=== PATIENT | male | born 1970 | race Two or more races ===

== ENCOUNTER 2020-11-21 16:29 | Inpatient (IN) | payer OTHER ==
[2020-11-21] MEDS ORDERED: SODIUM CHLORIDE 0.9% 1,000 ML IV STA ×2 (17:14→20:07)
[2020-11-21] MEDS ORDERED: HYDROmorphone 0.5 MG/0.5 ML SYRINGE IVP STA (17:14)
[2020-11-21 17:40] LABS: Basophils # (A) 0.1 k/uL (0-0.2); Basophils % (A) 1 %; Eosinophils # (A) 0.5 k/uL (0-0.7); Eosinophils % (A) 5 %; HCT 46.9 % (39.0-53.0); HGB 15.9 gm/dL (13.0-17.5); Lymphocytes # (A) 1.8 k/uL (1.0-4.8); Lymphocytes % (A) 18 %; MCH 33.6 pg (25.0-35.0); MCHC 33.9 g/dL (31.0-37.0); MCV 99.1 fL (80.0-100.0); Mean Platelet Volume 7.2; Monocytes # (A) 0.6 k/uL (0-1.0); Monocytes % (A) 6 %; Neutrophils # (A) 7.2 k/uL (1.3-7.7); Neutrophils % (A) 69 %; Platelet Count 257 k/uL (150-450); RBC 4.74 m/uL (4.30-5.90); RDW 11.9 % (11.5-15.5); WBC 10.4 k/uL (3.8-10.6)
[2020-11-21 17:53] LABS: ALT 64 U/L (4-49); AST 67 U/L (17-59); African American GFR (CKD) >90 (>60 ml/min/1.73 sqM); Albumin 3.9 g/dL (3.5-5.0); Alkaline Phosphatase 92 U/L (38-126); Amylase 30 U/L (30-110); Anion Gap 8 mmol/L; Blood Urea Nitrogen 19 mg/dL (9-20); Calcium 9.2 mg/dL (8.4-10.2); Carbon Dioxide 26 mmol/L (22-30); Chloride 102 mmol/L (98-107); Glucose 109 mg/dL (74-99); Lipase 35 U/L (23-300); Non-African American GFR(CKD) >90 (>60 ml/min/1.73 sqM); Potassium 4.2 mmol/L (3.5-5.1); Sodium 136 mmol/L (137-145); Total Bilirubin 0.8 mg/dL (0.2-1.3); Total Protein 7.5 g/dL (6.3-8.2)
--- NOTE | 2020-11-21 18:12 | CT ---
EXAMINATION TYPE: CT abdomen pelvis w con DATE OF EXAM: 11/21/2020 COMPARISON: None HISTORY: periumbilical pain CT DLP: 1139.1 mGycm Automated exposure control for dose reduction was used. CONTRAST: Performed with IV Contrast, patient injected with 100 mL of Isovue 370. Images obtained from the diaphragm to the floor the pelvis with IV contrast. Lung bases are clear of consolidation. There is minimal subsegmental atelectasis at the lung bases. H eart size is normal. There is no pericardial effusion. There are small calcified splenic granulomata. Stomach pancreas liver gallbladder appear intact. The bile ducts are not dilated. There is no adrenal mass. Kidneys show satisfactory contrast opacification. There is no hydronephrosi s. There is 3 cm right renal parapelvic cyst. Delayed images show normal renal excretion. There is no retroperitoneal adenopathy. Ureters are not dilated. There is fat stranding in the pelvis with wall thickening of the mid sigmoid colon. There are multipl e sigmoid diverticula. There is extraluminal air anterior to the mid sigmoid colon and above the urin diann bladder. Bladder distends fairly smoothly. There is no inguinal hernia. The appendix appears normal. There is 3.8 x 3 cm fluid collection in the posterior midline pelvis consistent with an abscess. There is pros tatic calcification. Lumbar vertebra have normal alignment. There is no compression fracture. Posterior elements are intac t. There is vacuum disc at L5-S1. Bony pelvis is intact. Hip joints are intact. IMPRESSION: Sigmoid diverticulitis with extraluminal air measuring overall 8 cm in length consistent with perfora tion that is collected anterior to the mid sigmoid colon. Small posterior fluid collection consistent with an abscess. No bowel obstruction.
[2020-11-21] MEDS ORDERED: PIPERACILLIN-TAZOBACTAM 3.375 GM in SODIUM CHLORIDE 0.9% 100 ML IVPB STA (18:23)
--- NOTE | 2020-11-21 18:58 | ED ---
General Adult HPI - General Source: patient, RN notes reviewed Mode of arrival: ambulatory Limitations: no limitations <Moses Jo - Last Filed: 11/21/20 18:55> <Sahil Thompson - Last Filed: 11/21/20 20:07> - General Chief complaint: Abdominal Pain Stated complaint: Constipation Time Seen by Provider: 11/21/20 16:48 - History of Present Illness Initial comments: 50-year-old male presents to the emergency room for a chief, and of abdominal pain. Patient states he believes he is constipated. Patient states that 5 days ago he had a normal bowel movement. However the next day he started having abdominal pain and thought he was constipated. He tried an enema 4 days ago as well as drinking coffee. He did have several small bowel movements at that time. Patient states the pain is worsened and he is more bloated.States he is passing gas but has not had a bowel movement for the past few days. He denies fevers or chills. Admits to nausea but denies vomiting.Patient has no other complaints at this time including shortness of breath, chest pain, nausea or vomiting, headache, or visual changes. (Moses Jo) - Related Data Home Medications Medication Instructions Recorded Confirmed No Known Home Medications 11/21/20 11/21/20 Allergies Allergy/AdvReac Type Severity Reaction Status Date / Time No Known Allergies Allergy Verified 11/21/20 18:26 Review of Systems ROS Other: All systems not noted in ROS Statement are negative. <Moses Jo - Last Filed: 11/21/20 18:55> ROS Other: All systems not noted in ROS Statement are negative. <Sahil Thompson - Last Filed: 11/21/20 20:07> ROS Statement: Those systems with pertinent positive or pertinent negative responses have been documented in the HPI. Past Medical History Past Medical History: No Reported History History of Any Multi-Drug Resistant Organisms: None Reported Past Surgical History: No Surgical Hx Reported Smoking Status: Current every day smoker Past Alcohol Use History: Occasional Past Drug Use History: None Reported <Moses Jo - Last Filed: 11/21/20 18:55> General Exam Limitations: no limitations General appearance: alert, in no apparent distress Head exam: Present: atraumatic Eye exam: Present: normal appearance, PERRL, EOMI. Absent: scleral icterus, conjunctival injection, periorbital swelling ENT exam: Present: normal exam, mucous membranes moist Neck exam: Present: normal inspection, full ROM. Absent: tenderness, meningismus, lymphadenopathy Respiratory exam: Present: normal lung sounds bilaterally. Absent: respiratory distress, wheezes, rales, rhonchi, stridor Cardiovascular Exam: Present: regular rate, normal rhythm, normal heart sounds. Absent: systolic murmur, diastolic murmur, rubs, gallop, clicks GI/Abdominal exam: Present: soft, distended, tenderness (Generalized abdominal tenderness), normal bowel sounds. Absent: guarding, rebound, rigid Neurological exam: Present: alert <Moses Jo - Last Filed: 11/21/20 18:55> Course <Sahil Thompson - Last Filed: 11/21/20 20:07> Vital Signs 11/21/20 11/21/20 16:34 19:11 Temperature 98.3 F Pulse Rate 92 80 Respiratory 18 16 Rate Blood Pressure 172/131 169/111 O2 Sat by Pulse 97 95 Oximetry - Reevaluation(s) Reevaluation #1: 11/21/20 18:59 Patient reevaluated and reexamined by myself, Dr. Thompson. I agree with PA findings. This includes diagnostic interpretation and treatment plan. Patient does have moderate tenderness left lower quadrant. CT reviewed. Patient requests not Dr. Wheatley. Case was discussed with Dr. Hagan who does not accept care of the patient. 11/21/20 19:40 Unable to get a hold of Dr. Asher or Dr. Phan. Patient again updated. Patient still refusing Dr. Wheatley at this time. Patient recommended to consider transfer however still will not agree to that. Patient is considering leaving AGAINST MEDICAL ADVICE. Patient is strongly recommended against that multiple times. is present and will talk with patient. They did asked that I leave the room. Patient is aware that he has perforation and abscess and may need procedure or surgery, possibly still tonight and that his care is being delayed at this time. 11/21/20 20:06 Patient again reevaluated and is agreeable to consult Dr. Wheatley. Case was discussed in detail Dr. Wheatley who does not feel patient needs emergent surgery at this point. He does request IV Zosyn, 2 L normal saline, nothing by mouth and repeat labs at 6 AM. Also does request consult with Dr. Miranda for medicine. (Sahil Thompson) Medical Decision Making - Lab Data Result diagrams: 11/21/20 17:31 11/21/20 17:31 <Moses Jo - Last Filed: 11/21/20 18:55> - Lab Data Result diagrams: 11/21/20 17:31 11/21/20 17:31 <Sahil Thompson - Last Filed: 11/21/20 20:07> - Medical Decision Making Vitals are stable. Patient is afebrile. HPI and physical exam as documented. CBC CMP unremarkable. CT abdomen and pelvis shows sigmoid diverticulitis with extraluminal air measuring 8 cm in length consistent with perforation. There is also small posterior fluid collection with an abscess. Patient was started on Zosyn. Patient is requesting a different surgeon than the on-call surgeon. (Moses Jo) - Lab Data Lab Results 11/21/20 11/21/20 11/21/20 Range/Units 17:31 17:31 18:57 WBC 10.4 (3.8-10.6) k/uL RBC 4.74 (4.30-5.90) m/uL Hgb 15.9 (13.0-17.5) gm/dL Hct 46.9 (39.0-53.0) % MCV 99.1 (80.0-100.0) fL MCH 33.6 (25.0-35.0) pg MCHC 33.9 (31.0-37.0) g/dL RDW 11.9 (11.5-15.5) % Plt Count 257 (150-450) k/uL MPV 7.2 Neutrophils % 69 % Lymphocytes % 18 % Monocytes % 6 % Eosinophils % 5 % Basophils % 1 % Neutrophils # 7.2 (1.3-7.7) k/uL Lymphocytes # 1.8 (1.0-4.8) k/uL Monocytes # 0.6 (0-1.0) k/uL Eosinophils # 0.5 (0-0.7) k/uL Basophils # 0.1 (0-0.2) k/uL Sodium 136 L (137-145) mmol/L Potassium 4.2 (3.5-5.1) mmol/L Chloride 102 (98-107) mmol/L Carbon Dioxide 26 (22-30) mmol/L Anion Gap 8 mmol/L BUN 19 (9-20) mg/dL Creatinine 0.77 (0.66-1.25) mg/dL Est GFR (CKD-EPI)AfAm >90 (>60 ml/min/1.73 sqM) Est GFR (CKD-EPI)NonAf >90 (>60 ml/min/1.73 sqM) Glucose 109 H (74-99) mg/dL Plasma Lactic Acid Jordan 0.9 (0.7-2.0) mmol/L Calcium 9.2 (8.4-10.2) mg/dL Total Bilirubin 0.8 (0.2-1.3) mg/dL AST 67 H (17-59) U/L ALT 64 H (4-49) U/L Alkaline Phosphatase 92 (38-126) U/L Total Protein 7.5 (6.3-8.2) g/dL Albumin 3.9 (3.5-5.0) g/dL Amylase 30 (30-110) U/L Lipase 35 (23-300) U/L Critical Care Time Critical Care Time: Yes Total Critical Care Time: 31 <Sahil Thompson - Last Filed: 11/21/20 20:07> Disposition Is patient prescribed a controlled substance at d/c from ED?: No Time of Disposition: 18:58 <Moses Jo - Last Filed: 11/21/20 18:55> Is patient prescribed a controlled substance at d/c from ED?: No <Sahil Thompson - Last Filed: 11/21/20 20:07> Clinical Impression: Diverticulitis of intestine with perforation and abscess Disposition: ADMITTED IP TO THIS HOSP Condition: Serious Referrals: None,Stated [Primary Care Provider] - 1-2 days
[2020-11-21] MEDS ORDERED: NICOTINE 21MG/24HR PATCH TRANSDERM STA (20:04)
[2020-11-21] MEDS ORDERED: ONDANSETRON 4 MG/2 ML VIAL IVP PRN (20:08)
[2020-11-21] MEDS ORDERED: NICOTINE 14MG/24HR PATCH TRANSDERM STA (20:08)
[2020-11-21] MEDS ORDERED: HYDROmorphone 0.5 MG/0.5 ML SYRINGE IVP PRN (20:08)
[2020-11-21] MEDS ORDERED: NALOXONE 0.4 MG/ML 1 ML VIAL IV PRN (20:08)
[2020-11-21] MEDS: SODIUM CHLORIDE 0.9% 1,000 ML IV SCH (20:19)
[2020-11-21] MEDS: HYDROmorphone 1 MG/ML 1 ML SYRINGE IVP PRN ×2 (20:20→23:15)
[2020-11-21 20:26] LABS: Appearance,Urine Clear (Clear); Bilirubin,Urine Negative (Negative); Blood,Urine Small (Negative); Color,Urine Yellow; Glucose,Urine (UA) Negative (Negative); Ketones,Urine Negative (Negative); Leukocyte Esterase,Urine Negative (Negative); Mucus,Urine Few /hpf; Nitrite,Urine Negative (Negative); PH, Urine 6.5 (5.0-8.0); Protein,Urine Trace (Negative); RBC,Urine 8 /hpf (0-5); Urobilinogen,Urine <2.0 mg/dL (<2.0); WBC,Urine 3 /hpf (0-5)
[2020-11-21 20:27] LABS: Specific Gravity,Urine >1.050 (1.001-1.035)
[2020-11-21] MEDS: PANTOPRAZOLE 40 MG/10 ML VIAL IV SCH (20:53)
[2020-11-22] MEDS: HYDROmorphone 1 MG/ML 1 ML SYRINGE IVP PRN ×4 (02:08→12:26)
[2020-11-22] MEDS: PIPERACILLIN-TAZOBACTAM 3.375 GM in SODIUM CHLORIDE 0.9% 100 ML IVPB SCH ×3 (02:08→20:49)
[2020-11-22] MEDS: SODIUM CHLORIDE 0.9% 1,000 ML IV SCH ×3 (04:34→21:02)
[2020-11-22 06:59] LABS: Basophils # (A) 0.1 k/uL (0-0.2); Basophils % (A) 1 %; Eosinophils # (A) 0.2 k/uL (0-0.7); Eosinophils % (A) 3 %; HCT 43.2 % (39.0-53.0); HGB 14.2 gm/dL (13.0-17.5); Lymphocytes # (A) 1.4 k/uL (1.0-4.8); Lymphocytes % (A) 17 %; MCH 33.8 pg (25.0-35.0); MCHC 32.9 g/dL (31.0-37.0); MCV 102.5 fL (80.0-100.0); Mean Platelet Volume 7.4; Monocytes # (A) 0.5 k/uL (0-1.0); Monocytes % (A) 6 %; Neutrophils # (A) 5.8 k/uL (1.3-7.7); Neutrophils % (A) 72 %; Platelet Count 229 k/uL (150-450); RBC 4.21 m/uL (4.30-5.90); RDW 11.9 % (11.5-15.5); WBC 8.1 k/uL (3.8-10.6)
[2020-11-22] MEDS: PANTOPRAZOLE 40 MG/10 ML VIAL IV SCH (07:50)
--- NOTE | 2020-11-22 10:49 | P.GSHP ---
History of Present Illness H&P Date: 11/22/20 CHIEF COMPLAINT: Abdominal pain HISTORY OF PRESENT ILLNESS: This is a 50-year-old male with a known history of nicotine dependence. He presented to the emergency room with complaints of abdominal pain. Patient reports that he's been having abdominal pain for about 6 days. Symptoms started on . Patient thought that he was constipated. He took milk of mag and coffee. He reports that he was able to have a very small crumb-like bowel movement. He reports that his abdominal pain and distention continued to worsen. He had been passing gas and then no bowel movement for the past few days. He denies any nausea or vomiting. Denies any fever chills or sweats. He has had issues with constipation in the past. Denies any history of diverticulosis or diverticulitis. He has never had a colonoscopy. Computed tomography scan of the abdomen and pelvis shows sigmoid diverticulitis with extraluminal air measuring overall 8 cm in length consistent with perforation that was collected anterior to the mid sigmoid colon. Small posterior fluid collection consistent with an abscess. No bowel obstruction. Patient admitted to the hospital for diverticulitis with perforation. Patient has been started on IV antibiotics and IV fluids. PAST MEDICAL HISTORY: See list. PAST SURGICAL HISTORY: See list. MEDICATIONS: See list. ALLERGIES: See list. SOCIAL HISTORY: No illicit drug use. REVIEW OF SYSTEMS: CONSTITUTIONAL: Denies fever or chills. HEENT: Denies blurred vision, vision changes, or eye pain. Denies hemoptysis CARDIOVASCULAR: Denies chest pain or pressure. RESPIRATORY: No shortness of breath. GASTROINTESTINAL: See HPI for pertinent findings HEMATOLOGIC: Denies bleeding disorders. GENITOURINARY: Denies any blood in urine or increased urinary frequency. SKIN: Denies pruitis. Denies rash. PHYSICAL EXAM: VITAL SIGNS: Reviewed GENERAL: Well-developed in no acute distress. HEENT: No sclera icterus. Extraocular movements grossly intact. Moist buccal mucosa. Head is atraumatic, normocephalic. No nasal drainage. ABDOMEN: Distended with tenderness to palpation of the left lower quadrant and mid lower quadrant of the abdomen NEUROLOGIC: Alert and oriented. Cranial nerves II through XII grossly intact. LABORATORY DATA: WBC 8.1 hemoglobin 14.2 lactate 0.9 AST 54 ALT 60 IMAGING: Computed tomography scan of the abdomen and pelvis shows sigmoid diverticulitis with extraluminal air measuring overall 8 cm in length consistent with perforation that was collected anterior to the mid sigmoid colon. Small posterior fluid collection consistent with an abscess. No bowel obstruction. ASSESSMENT: 1. Sigmoid diverticulitis with perforation 2. Small posterior fluid collection consistent with an abscess noted on CT 3. Nicotine dependence PLAN: -Recommend conservative management -Consult interventional radiology for possible drainage of abscess -Continue IV Zosyn -Continue IV fluids -Continue IV Dilaudid as needed for pain -Consult medicine for medical management -Keep patient nothing by mouth -GI prophylaxis Protonix and DVT prophylaxis subcu heparin Physician [place] Whacker note has been reviewed by physician. Signing provider agrees with the documented findings, assessment, and plan of care. Past Medical History Past Medical History: No Reported History History of Any Multi-Drug Resistant Organisms: None Reported Past Surgical History: No Surgical Hx Reported Past Anesthesia/Blood Transfusion Reactions: No Reported Reaction Past Psychological History: Anxiety, Depression Smoking Status: Current every day smoker Past Alcohol Use History: Occasional Past Drug Use History: None Reported Medications and Allergies Home Medications Medication Instructions Recorded Confirmed Type No Known Home Medications 11/21/20 11/21/20 History Allergies Allergy/AdvReac Type Severity Reaction Status Date / Time No Known Allergies Allergy Verified 11/21/20 18:26 Surgical - Exam Vital Signs Temp Pulse Resp BP Pulse Ox 98.3 F 92 18 172/131 97 11/21/20 16:34 11/21/20 16:34 11/21/20 16:34 11/21/20 16:34 11/21/20 16:34 Results - Labs 11/22/20 06:33 11/21/20 17:31 Abnormal Lab Results - Last 24 Hours (Table) 11/21/20 11/21/20 11/22/20 Range/Units 17:31 17:31 06:33 RBC 4.21 L (4.30-5.90) m/uL MCV 102.5 H (80.0-100.0) fL Sodium 136 L (137-145) mmol/L Glucose 109 H (74-99) mg/dL AST 67 H (17-59) U/L ALT 64 H (4-49) U/L Ur Specific [place] >1.050 H (1.001-1.035) Urine Protein Trace H (Negative) Urine Blood Small H (Negative) Urine RBC 8 H (0-5) /hpf Urine Mucus Few H (None) /hpf Diabetes panel 11/21/20 Range/Units 17:31 Sodium 136 L (137-145) mmol/L Potassium 4.2 (3.5-5.1) mmol/L Chloride 102 (98-107) mmol/L Carbon Dioxide 26 (22-30) mmol/L BUN 19 (9-20) mg/dL Creatinine 0.77 (0.66-1.25) mg/dL Glucose 109 H (74-99) mg/dL Calcium 9.2 (8.4-10.2) mg/dL AST 67 H (17-59) U/L ALT 64 H (4-49) U/L Alkaline Phosphatase 92 (38-126) U/L Total Protein 7.5 (6.3-8.2) g/dL Albumin 3.9 (3.5-5.0) g/dL Calcium panel 11/21/20 Range/Units 17:31 Calcium 9.2 (8.4-10.2) mg/dL Albumin 3.9 (3.5-5.0) g/dL Pituitary panel 11/21/20 Range/Units 17:31 Sodium 136 L (137-145) mmol/L Potassium 4.2 (3.5-5.1) mmol/L Chloride 102 (98-107) mmol/L Carbon Dioxide 26 (22-30) mmol/L BUN 19 (9-20) mg/dL Creatinine 0.77 (0.66-1.25) mg/dL Glucose 109 H (74-99) mg/dL Calcium 9.2 (8.4-10.2) mg/dL Adrenal panel 11/21/20 Range/Units 17:31 Sodium 136 L (137-145) mmol/L Potassium 4.2 (3.5-5.1) mmol/L Chloride 102 (98-107) mmol/L Carbon Dioxide 26 (22-30) mmol/L BUN 19 (9-20) mg/dL Creatinine 0.77 (0.66-1.25) mg/dL Glucose 109 H (74-99) mg/dL Calcium 9.2 (8.4-10.2) mg/dL Total Bilirubin 0.8 (0.2-1.3) mg/dL AST 67 H (17-59) U/L ALT 64 H (4-49) U/L Alkaline Phosphatase 92 (38-126) U/L Total Protein 7.5 (6.3-8.2) g/dL Albumin 3.9 (3.5-5.0) g/dL
[2020-11-22 11:37] LABS: African American GFR (CKD) 119.9 (60.0-200.0); Albumin 3.6 g/dL (3.80-4.90); Albumin/Globulin Ratio 1.64 (1.60-3.17); Anion Gap 6.5 mmol/L (4.00-12.00); Calcium 8.3 mg/dL (8.7-10.3); Carbon Dioxide 26.5 mmol/L (21.6-31.8); Globulin 2.2 g/dL (1.6-3.3); Non-African American GFR(CKD) 103.4 (60.0-200.0); Potassium 4.5 mmol/L (3.5-5.5); Total Bilirubin 0.5 mg/dL (0.2-1.2); Total Protein 5.8 g/dL (6.2-8.2)
[2020-11-22] MEDS: HYDROcodone/APAP 5-325MG 1 EACH TAB PO PRN ×2 (13:11→20:46)
[2020-11-22] MEDS ORDERED: LORazepam 2 MG/ML INJ IM PRN (15:42)
--- NOTE | 2020-11-22 17:43 | P.GSCN ---
History of Present Illness Consult date: 11/22/20 Reason for Consult: diverticulitis History of present illness: The patient is a 50 year old man who started to have abdominal discomfort on . He felt bloating and generalized discomfort. He was having some issues with constipation, he had had a similar episode 1 year ago. He tried treating this with various things including enemas and prune juice with milk of magnesia. Eventually began having some bowel movements and initially felt better. Yesterday however he got worse and it hurt even walk. He came into the emergency room and was worked up and found to have diverticulitis. He denies any prior episodes of diverticulitis. No prior colonoscopies. He has passed some flatus today. He's feeling better today than admission last night. Denies any fevers although he has had some sweats. He thought the swelling was due to the pain. He did not take his temperature. Denied nausea or vomiting. No blood in the stools or dark tarry stools. Review of Systems All systems: negative Past Medical History Past Medical History: No Reported History History of Any Multi-Drug Resistant Organisms: None Reported Past Surgical History: No Surgical Hx Reported Past Anesthesia/Blood Transfusion Reactions: No Reported Reaction Past Psychological History: Anxiety, Depression Smoking Status: Current every day smoker Past Alcohol Use History: Occasional Past Drug Use History: None Reported Medications and Allergies Home Medications Medication Instructions Recorded Confirmed Type No Known Home Medications 11/21/20 11/21/20 History Allergies Allergy/AdvReac Type Severity Reaction Status Date / Time No Known Allergies Allergy Verified 11/21/20 18:26 Surgical - Exam Osteopathic Statement: *. No significant issues noted on an osteopathic structural exam other than those noted in the History and Physical/Consult. Vital Signs Temp Pulse Resp BP Pulse Ox 98.3 F 92 18 172/131 97 11/21/20 16:34 11/21/20 16:34 11/21/20 16:34 11/21/20 16:34 11/21/20 16:34 - General well developed, well nourished, no distress - Eyes normal ocular movement - Neck trachea midline - Respiratory normal respiratory effort, clear to auscultation - Cardiovascular Rhythm: regular - Abdomen Abdomen: soft, tender (Tenderness along the lower abdomen to palpation, no significant discomfort with), guarding (Mild voluntary guarding), no rebound Results - Labs 11/22/20 06:33 11/22/20 06:33 Abnormal Lab Results - Last 24 Hours (Table) 11/21/20 11/21/20 11/22/20 Range/Units 17:31 17:31 06:33 RBC 4.21 L (4.30-5.90) m/uL MCV 102.5 H (80.0-100.0) fL Sodium 136 L (137-145) mmol/L Glucose 109 H (74-99) mg/dL Calcium (8.7-10.3) mg/dL AST 67 H (17-59) U/L ALT 64 H (4-49) U/L Total Protein (6.2-8.2) g/dL Albumin (3.80-4.90) g/dL Ur Specific [place] >1.050 H (1.001-1.035) Urine Protein Trace H (Negative) Urine Blood Small H (Negative) Urine RBC 8 H (0-5) /hpf Urine Mucus Few H (None) /hpf 11/22/20 Range/Units 06:33 RBC (4.30-5.90) m/uL MCV (80.0-100.0) fL Sodium (137-145) mmol/L Glucose (74-99) mg/dL Calcium 8.3 L (8.7-10.3) mg/dL AST 54 H (17-59) U/L ALT 60 H (4-49) U/L Total Protein 5.8 L (6.2-8.2) g/dL Albumin 3.60 L (3.80-4.90) g/dL Ur Specific [place] (1.001-1.035) Urine Protein (Negative) Urine Blood (Negative) Urine RBC (0-5) /hpf Urine Mucus (None) /hpf Diabetes panel 11/21/20 11/22/20 Range/Units 17:31 06:33 Sodium 136 L 139 (137-145) mmol/L Potassium 4.2 4.5 (3.5-5.1) mmol/L Chloride 102 106 (98-107) mmol/L Carbon Dioxide 26 26.5 (22-30) mmol/L BUN 19 16.0 (9-20) mg/dL Creatinine 0.77 0.8 (0.66-1.25) mg/dL Glucose 109 H 91 (74-99) mg/dL Calcium 9.2 8.3 L (8.4-10.2) mg/dL AST 67 H 54 H (17-59) U/L ALT 64 H 60 H (4-49) U/L Alkaline Phosphatase 92 72 (38-126) U/L Total Protein 7.5 5.8 L (6.3-8.2) g/dL Albumin 3.9 3.60 L (3.5-5.0) g/dL Calcium panel 11/21/20 11/22/20 Range/Units 17:31 06:33 Calcium 9.2 8.3 L (8.4-10.2) mg/dL Albumin 3.9 3.60 L (3.5-5.0) g/dL Pituitary panel 11/21/20 11/22/20 Range/Units 17:31 06:33 Sodium 136 L 139 (137-145) mmol/L Potassium 4.2 4.5 (3.5-5.1) mmol/L Chloride 102 106 (98-107) mmol/L Carbon Dioxide 26 26.5 (22-30) mmol/L BUN 19 16.0 (9-20) mg/dL Creatinine 0.77 0.8 (0.66-1.25) mg/dL Glucose 109 H 91 (74-99) mg/dL Calcium 9.2 8.3 L (8.4-10.2) mg/dL Adrenal panel 11/21/20 11/22/20 Range/Units 17:31 06:33 Sodium 136 L 139 (137-145) mmol/L Potassium 4.2 4.5 (3.5-5.1) mmol/L Chloride 102 106 (98-107) mmol/L Carbon Dioxide 26 26.5 (22-30) mmol/L BUN 19 16.0 (9-20) mg/dL Creatinine 0.77 0.8 (0.66-1.25) mg/dL Glucose 109 H 91 (74-99) mg/dL Calcium 9.2 8.3 L (8.4-10.2) mg/dL Total Bilirubin 0.8 0.5 (0.2-1.3) mg/dL AST 67 H 54 H (17-59) U/L ALT 64 H 60 H (4-49) U/L Alkaline Phosphatase 92 72 (38-126) U/L Total Protein 7.5 5.8 L (6.3-8.2) g/dL Albumin 3.9 3.60 L (3.5-5.0) g/dL - Imaging CT scan - abdomen: report reviewed, image reviewed Assessment and Plan (1) Diverticulitis of intestine with perforation and abscess Current Visit: Yes Status: Acute Code(s): K57.80 - DVTRCLI OF INTEST, PART UNSP, W PERF AND ABSCESS W/O BLEED SNOMED Code(s): 529481351 Plan: I discussed diverticulitis with the patient. We discussed surgical versus medical options. Currently he has no lactic acidosis, fever or leukocytosis. W e'll give him a try at conservative he was broad-spectrum antibiotics. Do DVT and ulcer prophylaxis. Explained that he worsens or doesn't significantly improve in the next 2-3 days he may need laparotomy with temporary colostomy formation. Questions were encouraged and answered. I'll follow with you
--- NOTE | 2020-11-22 20:09 | CONS ---
CONSULTATION DATE OF SERVICE: 11/22/2020 REASON FOR CONSULTATION: Advice regarding acute diverticulitis and other medical issues, requested by Dr. Wheatley. HISTORY OF PRESENT ILLNESS: This 50-year-old gentleman with a past medical history of anxiety and depression, not being followed by any primary physician in the outpatient setting, is complaining of abdominal pain on and off for the past several days. The pain is currently situated in the lower part of the abdomen; it is severe in intensity. Patient is also constipated. The patient apparently had some enema 4 days ago and was started on coffee, and because of lack of improvement, the patient came to [facility] and was admitted for further evaluation. White count was 8.1. AST and ALT were slightly elevated. CT scan of the abdomen and pelvis was also done which showed evidence of sigmoid diverticulitis with extraluminal air measuring about 8 cm in length with perforation that has collected anterior to the mid sigmoid colon. Small posterior fluid collection was also noted. There is no history of any fever, rigor or chills. No history of headache, loss of consciousness, chest pain or palpitations at this time. PAST MEDICAL HISTORY: History of anxiety, depression, history of nicotine dependence. HOME MEDICATIONS: None. ALLERGIES: NONE. FAMILY HISTORY: No history of heart disease or strokes in the family. SOCIAL HISTORY: No history of smoking. Occasional alcohol intake. REVIEW OF SYSTEMS: ENT: No diminished hearing. No diminished vision. CARDIOVASCULAR SYSTEM: No angina, palpitations. RESPIRATORY SYSTEM: No cough, hemoptysis. GI: As mentioned earlier. : No dysuria or retention. NERVOUS SYSTEM: No numbness, weakness. ALLERGY/IMMUNOLOGY: No asthma, hayfever. MUSCULOSKELETAL: As mentioned earlier. HEMATOLOGY/ONCOLOGY: No history of anemia. ENDOCRINE: No history of diabetes, hypothyroidism. CONSTITUTIONAL: As mentioned earlier. DERMATOLOGY: Negative. RHEUMATOLOGY: Negative. PSYCHIATRY: As mentioned earlier. PHYSICAL EXAMINATION: Patient alert and oriented x3. Pulse is 85, blood pressure 174/97, respirations 15, temperature 98.2, pulse ox 97% on room air. HEENT: Conjunctivae normal. NECK: No jugular venous distention. CARDIOVASCULAR SYSTEM: S1, S2 muffled. RESPIRATORY SYSTEM: Breath sounds diminished at the bases. No rhonchi. No crackles. ABDOMEN: Soft. Mild diffuse distention. Mild diffuse tenderness present. No guarding. No rigidity. No mass palpable. Bowel sounds present. LEGS: No edema. No swelling. NERVOUS SYSTEM: Higher functions as mentioned earlier. Moves all 4 limbs. No focal motor or sensory deficit. LYMPHATICS: No lymph node palpable in neck, axillae or groin. SKIN: No ulcer, rash, bleeding. JOINTS: No active deforming arthropathy. LABS: WBC 8.1, hemoglobin 14.2, sodium 139. AST is 54 and ALT 60. ASSESSMENT: 1. Acute sigmoid diverticulitis with possible diverticular abscess, present on admission, with severe abdominal pain. 2. Increased AST and ALT; possibly mild hepatitis. 3. Hypertension. 4. Hyponatremia, mild. 5. Increased mean corpuscular volume. 6. History of anxiety, depression. 7. History of nicotine dependence. 8. FULL CODE. RECOMMENDATIONS AND DISCUSSION: In this 50-year-old gentleman who presented with multiple complex medical issues, we will monitor the patient closely. I would recommend continuing the current medications. Continue symptomatic treatment, broad-spectrum IV antibiotics. Otherwise, surgical evaluation. I would also recommend DVT prophylaxis, incentive spirometry. Monitor blood pressure closely. Prognosis guarded because of multiple complex medical issues. Further recommendations to follow. MMODL / IJN: [id number] / [id number]
[2020-11-22] MEDS: HEPARIN SODIUM,PORCINE 5,000 UNIT/ML 1 ML VIAL SQ SCH ×2 (20:49→21:01)
[2020-11-23] MEDS: metroNIDAZOLE-NS PMX 500 MG in SALINE 1 100ML.BAG IVPB SCH ×3 (00:40→15:07)
[2020-11-23] MEDS: PIPERACILLIN-TAZOBACTAM 3.375 GM in SODIUM CHLORIDE 0.9% 100 ML IVPB SCH ×3 (02:56→18:12)
[2020-11-23] MEDS: SODIUM CHLORIDE 0.9% 1,000 ML IV SCH (03:01)
[2020-11-23 06:12] LABS: Basophils % (A) 1 %; Eosinophils # (A) 0.2 k/uL (0-0.7); Eosinophils % (A) 2 %; HCT 42.2 % (39.0-53.0); Lymphocytes # (A) 1.7 k/uL (1.0-4.8); Lymphocytes % (A) 19 %; MCH 33.8 pg (25.0-35.0); MCHC 33.2 g/dL (31.0-37.0); Mean Platelet Volume 7.4; Monocytes # (A) 0.5 k/uL (0-1.0); Monocytes % (A) 5 %; Neutrophils # (A) 6.6 k/uL (1.3-7.7); Neutrophils % (A) 71 %; Platelet Count 266 k/uL (150-450); RBC 4.14 m/uL (4.30-5.90); RDW 11.8 % (11.5-15.5); WBC 9.2 k/uL (3.8-10.6)
[2020-11-23 06:51] LABS: ALT 64 U/L (4-49); AST 53 U/L (17-59); African American GFR (CKD) >90 (>60 ml/min/1.73 sqM); Albumin 3.1 g/dL (3.5-5.0); Alkaline Phosphatase 66 U/L (38-126); Anion Gap 5 mmol/L; Blood Urea Nitrogen 14 mg/dL (9-20); Calcium 8.7 mg/dL (8.4-10.2); Carbon Dioxide 27 mmol/L (22-30); Chloride 105 mmol/L (98-107); Glucose 77 mg/dL (74-99); Non-African American GFR(CKD) >90 (>60 ml/min/1.73 sqM); Potassium 4.6 mmol/L (3.5-5.1); Sodium 137 mmol/L (137-145); Total Bilirubin 0.6 mg/dL (0.2-1.3); Total Protein 6.1 g/dL (6.3-8.2)
[2020-11-23] MEDS: PANTOPRAZOLE 40 MG/10 ML VIAL IV SCH (07:49)
[2020-11-23] MEDS: HEPARIN SODIUM,PORCINE 5,000 UNIT/ML 1 ML VIAL SQ SCH ×2 (07:49→19:10)
[2020-11-23] MEDS: HYDROcodone/APAP 5-325MG 1 EACH TAB PO PRN ×3 (07:50→21:04)
[2020-11-23] MEDS: NICOTINE 21MG/24HR PATCH TRANSDERM SCH (07:50)
[2020-11-23 11:59] LABS: Hepatitis A Antibody IgM Non-Reactive (Non-Reactive); Hepatitis B Core IgM Non-Reactive (Non-Reactive); Hepatitis B Surface Antigen Non-Reactive (Non-Reactive); Hepatitis C IgG Antibody Non-Reactive (Non-Reactive)
--- NOTE | 2020-11-23 16:18 | PN ---
PROGRESS NOTE DATE OF SERVICE: 11/23/2020 This 50-year-old gentleman admitted with acute diverticulitis and diverticular abscess being closely monitored. The patient is on broad-spectrum IV antibiotics. Surgery is following the patient closely. PHYSICAL EXAMINATION: On exam, alert and oriented x3. Pulse is 63, blood pressure 142/90, respiration 20, temperature 97.8, pulse ox 100% on room air. HEENT: Conjunctivae normal. NECK: No jugular venous distention. CARDIOVASCULAR: S1, S2 muffled. RESPIRATORY: Breath sounds diminished at the bases. No rhonchi. No crackles. ABDOMEN: Soft, mild diffuse distention. Mild diffuse discomfort. No guarding. No rigidity. No mass palpable. No ascites. Bowel sounds diminished. LABS: WBC 9.2, hemoglobin 14. Sodium 137, potassium 4.6. Hepatitis panel is nonreactive. ASSESSMENT: 1. Acute sigmoid diverticulitis with possible diverticular abscess, present on admission with severe abdominal pain on conservative line of management. 2. Increased AST, ALT possibly mild hepatitis. 3. Hypertension. 4. Hyponatremia, mild. 5. History of increased MCV. 6. History of anxiety, depression. 7. History of nicotine dependence. 8. FULL CODE. RECOMMENDATIONS AND DISCUSSION: Continue current medications, continue symptomatic treatment. Continue broad-spectrum IV antibiotics. Incentive spirometry. DVT prophylaxis. Further recommendations per Surgery. Prognosis guarded. Further recommendations to follow. MMODL / IJN: [id number] /
--- NOTE | 2020-11-23 18:02 | P.PN ---
Subjective Progress Note Date: 11/23/20 Principal diagnosis: Acute diverticulitis The patient is seen on rounds. He is feeling better today. He still has her sure in the lower abdomen like he needs to have a bowel movement. Admits to flatus today. No nausea or vomiting. He is able to cough and move around without pain, this is improved from the prior day Objective - Vital Signs Vital signs: Vital Signs Temp 97.8 F 11/23/20 14:00 Pulse 86 11/23/20 14:00 Resp 20 11/23/20 14:00 BP 162/94 11/23/20 14:00 Pulse Ox 95 11/23/20 14:00 Intake & Output 11/22/20 11/23/20 11/23/20 18:59 06:59 18:59 Intake Total 200 200 Balance 200 200 Intake: Intake, IV Titration 200 200 Amount Piperacillin-Tazobactam 3 100 100 .375 gm In Sodium Chloride 0.9% 100 ml @ 25 mls/hr IVPB Q8H [facility] Rx#: [id number] metroNIDAZOLE-NS PMX 500 100 100 mg In Saline 1 100ml.bag @ 100 mls/hr IVPB Q8HR [facility] Rx#:[id number] Other: Voiding Method Toilet Toilet # Voids 1 - Constitutional General appearance: Present: cooperative, no acute distress - Respiratory Respiratory: bilateral: CTA - Gastrointestinal General gastrointestinal: Present: normal bowel sounds, soft (Softly distended), tenderness (Very minimal tenderness to deep palpation in the left lower quadrant. Much improved from yesterday. No tenderness to percussion) - Labs CBC & Chem 7: 11/23/20 05:33 11/23/20 05:33 Labs: Abnormal Lab Results - Last 24 Hours (Table) 11/23/20 11/23/20 Range/Units 05:33 05:33 RBC 4.14 L (4.30-5.90) m/uL MCV 102.0 H (80.0-100.0) fL ALT 64 H (4-49) U/L Total Protein 6.1 L (6.3-8.2) g/dL Albumin 3.1 L (3.5-5.0) g/dL Microbiology - Last 24 Hours (Table) 11/21/20 18:57 Blood Culture - Preliminary Blood No Growth after 24 hours Assessment and Plan (1) Diverticulitis of intestine with perforation and abscess Current Visit: Yes Status: Acute Code(s): K57.80 - DVTRCLI OF INTEST, PART UNSP, W PERF AND ABSCESS W/O BLEED SNOMED Code(s): 562319267 Plan: Clinically the patient is improving. The abdominal exam shows much less tenderness. White count remains normal. No evidence of fevers. We'll start the patient on a clear liquid diet. If this causes any worsening of pain, fevers or chills then he may need to go to the OR. If he is doing well on clear liquids tomorrow we'll continue the IV antibiotics. Repeat computed tomography scan of the abdomen and pelvis then over the weekend. Questions were encouraged and answered
[2020-11-24] MEDS ORDERED: hydrALAZINE HCL 20 MG/ML 1 ML VIAL IVP ONE (00:30)
[2020-11-24] MEDS: metroNIDAZOLE-NS PMX 500 MG in SALINE 1 100ML.BAG IVPB SCH ×3 (00:34→17:02)
[2020-11-24] MEDS: SODIUM CHLORIDE 0.9% 1,000 ML IV SCH ×2 (00:35→10:47)
[2020-11-24] MEDS: PIPERACILLIN-TAZOBACTAM 3.375 GM in SODIUM CHLORIDE 0.9% 100 ML IVPB SCH ×3 (03:14→21:03)
[2020-11-24] MEDS: PANTOPRAZOLE 40 MG/10 ML VIAL IV SCH (08:15)
[2020-11-24] MEDS: NICOTINE 21MG/24HR PATCH TRANSDERM SCH (08:15)
[2020-11-24] MEDS: HEPARIN SODIUM,PORCINE 5,000 UNIT/ML 1 ML VIAL SQ SCH ×2 (08:16→20:58)
[2020-11-24] MEDS: HYDROcodone/APAP 5-325MG 1 EACH TAB PO PRN ×3 (08:16→21:02)
--- NOTE | 2020-11-24 08:56 | P.PN ---
Subjective Progress Note Date: 11/24/20 Principal diagnosis: Acute diverticulitis The patient is seen on rounds. He tolerated clear liquid diet. Pressure in lower abdomen but no real pain. Denies nausea, vomiting, fever or chills Objective - Vital Signs Vital signs: Vital Signs Temp 97.4 F L 11/24/20 08:00 Pulse 69 11/24/20 08:00 Resp 18 11/24/20 08:00 BP 155/92 11/24/20 08:00 Pulse Ox 95 11/24/20 08:00 Intake & Output 11/23/20 11/24/20 11/24/20 18:59 06:59 18:59 Intake Total 200 200 Balance 200 200 Intake: Intake, IV Titration 200 200 Amount Piperacillin-Tazobactam 3 100 100 .375 gm In Sodium Chloride 0.9% 100 ml @ 25 mls/hr IVPB Q8H [facility] Rx#: [id number] metroNIDAZOLE-NS PMX 500 100 100 mg In Saline 1 100ml.bag @ 100 mls/hr IVPB Q8HR [facility] Rx#:[id number] Other: Voiding Method Toilet Toilet # Voids 1 2 - Constitutional General appearance: Present: cooperative, no acute distress - Gastrointestinal General gastrointestinal: Present: normal bowel sounds, soft, tenderness (minimal discomfort in lower abdomen to deep palpation. Significantly improved from admission) - Labs CBC & Chem 7: 11/23/20 05:33 11/23/20 05:33 Labs: Microbiology - Last 24 Hours (Table) 11/21/20 18:57 Blood Culture - Preliminary Blood No Growth after 48 hours Assessment and Plan (1) Diverticulitis of intestine with perforation and abscess Current Visit: Yes Status: Acute Code(s): K57.80 - DVTRCLI OF INTEST, PART UNSP, W PERF AND ABSCESS W/O BLEED SNOMED Code(s): 973530750 Plan: Clinically improving. Continue clear liquid diet. Repeat CT scan of the abd/pelvis this weekend with oral contrast. No surgery planned unless he worsens or develops a significant abscess
[2020-11-24 10:58] LABS: Basophils # (A) 0.1 k/uL (0-0.2); Basophils % (A) 1 %; Eosinophils # (A) 0.1 k/uL (0-0.7); Eosinophils % (A) 2 %; HCT 40.7 % (39.0-53.0); HGB 13.9 gm/dL (13.0-17.5); Lymphocytes # (A) 1.6 k/uL (1.0-4.8); Lymphocytes % (A) 19 %; MCH 34.2 pg (25.0-35.0); MCHC 34.3 g/dL (31.0-37.0); MCV 99.7 fL (80.0-100.0); Mean Platelet Volume 7.2; Monocytes # (A) 0.4 k/uL (0-1.0); Monocytes % (A) 5 %; Neutrophils # (A) 6.2 k/uL (1.3-7.7); Neutrophils % (A) 72 %; Platelet Count 266 k/uL (150-450); RBC 4.08 m/uL (4.30-5.90); RDW 11.7 % (11.5-15.5); WBC 8.5 k/uL (3.8-10.6)
[2020-11-24 12:07] VITALS: BMI 25.7
--- NOTE | 2020-11-24 16:36 | PN ---
PROGRESS NOTE DATE OF SERVICE: 11/24/2020 This 50-year-old gentleman who was admitted with acute diverticulitis and possible diverticular abscess is being closely monitored. Dr. Giron is following the patient closely. Medical treatment with broad-spectrum IV antibiotics was given. The pain is improving at this time. Dr. Giron is deferring surgical evaluation at this time as CT scan of abdomen is also being planned. No chest pain. No palpitations. No fever. PHYSICAL EXAMINATION: The patient is alert and oriented x3. Pulse 69, blood pressure 155/92, respiration 18, temperature 97.4, pulse ox 94% on room air. HEENT: Conjunctivae normal. NECK: No jugular venous distention. CARDIOVASCULAR: S1, S2 muffled. RESPIRATORY: Breath sounds diminished at the bases. No rhonchi, no crackles. ABDOMEN: Soft, obese, mild diffuse tenderness, mostly in the lower part. No guarding. No rigidity. No mass palpable. LEGS: No edema. No swelling. NERVOUS SYSTEM: No focal deficits. LABS: WBC 8.5, hemoglobin 13.9. ASSESSMENT: 1. Acute sigmoid diverticulitis with possible diverticular abscess, present on admission with severe abdominal pain on conservative line of management on IV antibiotics. 2. Increased AST, ALT, possibly mild hepatitis. 3. Hypertension. 4. Hyponatremia, mild. 5. History of increased MCV. 6. History of anxiety, depression. 7. History nicotine dependence. 8. FULL CODE. RECOMMENDATIONS AND DISCUSSION: I recommend to continue current medications, continue symptomatic treatment. Continue with broad-spectrum IV antibiotics. Continue the rest of the medications. Continue with monitoring and closely follow with Surgery. Possible repeat CAT scan. Medical treatment. Further recommendations to follow. Also, recommend close follow up with primary physician in the outpatient setting also. MMODL / IJN: [id number] /
[2020-11-25] MEDS: SODIUM CHLORIDE 0.9% 1,000 ML IV SCH ×2 (00:01→14:30)
[2020-11-25] MEDS: PIPERACILLIN-TAZOBACTAM 3.375 GM in SODIUM CHLORIDE 0.9% 100 ML IVPB SCH ×3 (04:46→21:15)
[2020-11-25 06:19] LABS: Basophils # (A) 0.1 k/uL (0-0.2); Basophils % (A) 1 %; Eosinophils # (A) 0.2 k/uL (0-0.7); Eosinophils % (A) 3 %; HCT 44.8 % (39.0-53.0); HGB 15.1 gm/dL (13.0-17.5); Lymphocytes # (A) 1.9 k/uL (1.0-4.8); Lymphocytes % (A) 24 %; MCH 33.7 pg (25.0-35.0); MCHC 33.7 g/dL (31.0-37.0); MCV 100.2 fL (80.0-100.0); Monocytes # (A) 0.3 k/uL (0-1.0); Monocytes % (A) 4 %; Neutrophils # (A) 5.4 k/uL (1.3-7.7); Neutrophils % (A) 67 %; Platelet Count 329 k/uL (150-450); RBC 4.48 m/uL (4.30-5.90); RDW 11.7 % (11.5-15.5)
[2020-11-25] MEDS: HEPARIN SODIUM,PORCINE 5,000 UNIT/ML 1 ML VIAL SQ SCH ×2 (09:05→21:30)
[2020-11-25] MEDS: PANTOPRAZOLE 40 MG/10 ML VIAL IV SCH (09:17)
[2020-11-25] MEDS: metroNIDAZOLE-NS PMX 500 MG in SALINE 1 100ML.BAG IVPB SCH ×3 (09:18→16:19)
[2020-11-25] MEDS: NICOTINE 21MG/24HR PATCH TRANSDERM SCH (09:18)
[2020-11-25] MEDS: ALPRAZolam 0.25 MG TAB PO PRN (09:26)
[2020-11-25] MEDS: HYDROcodone/APAP 5-325MG 1 EACH TAB PO PRN ×2 (09:26→18:37)
--- NOTE | 2020-11-25 09:55 | P.PN ---
Subjective Progress Note Date: 11/25/20 This is a 50-year-old male who was recently admitted with acute diverticulitis and possible diverticular abscess and is being closely monitored. Dr. Giron is following and patient is maintained on IV antibiotics and will continue at this time. Patient is tolerating clear liquid diet although states not much of an appetite is clear liquids are not very appetizing. Patient states his abdominal discomfort has slightly improved. Patient is passing gas and had a bowel movement yesterday. Patient is urinating with no reports of dysuria or retention. Surgery is continuing with conservative management and CT abdomen will be ordered to monitor clinical status. Review of systems: Constitutional: No reports of fatigue, fever, or chills Cardiovascular: No reports of chest pain or palpitations Respiratory: No reports of shortness of breath or cough GI: No reports of nausea, vomiting, or diarrhea, reports mild abdominal discomfort although slightly improved : No reports of dysuria or retention Neurovascular: No reports of weakness or numbness All medications have been reviewed Active Medications Hydrocodone Bitart/Acetaminophen (Hydrocodone/Apap 5-325mg 1 Each Tab) 1 each PO Q6HR PRN PRN Reason: Pain Last Admin: 11/25/20 09:26 Dose: 1 each Documented by: Alprazolam (Alprazolam 0.25 Mg Tab) 0.25 mg PO TID PRN PRN Reason: Anxiety Last Admin: 11/25/20 09:26 Dose: 0.25 mg Documented by: Heparin Sodium (Porcine) (Heparin Sodium,Porcine 5,000 Unit/Ml 1 Ml Vial) 5,000 unit SQ Q12HR [facility] Last Admin: 11/25/20 09:05 Dose: Not Given Documented by: Hydromorphone HCl (Hydromorphone 0.5 Mg/0.5 Ml Syringe) 0.5 mg IVP Q3HR PRN PRN Reason: Moderate Pain Last Admin: 11/21/20 21:40 Dose: 0.5 mg Documented by: Hydromorphone HCl (Hydromorphone 1 Mg/Ml 1 Ml Syringe) 1 mg IVP Q3HR PRN PRN Reason: Severe Pain Last Admin: 11/22/20 12:26 Dose: 1 mg Documented by: Piperacillin Sod/Tazobactam (Sod 3.375 gm/ Sodium Chloride) 100 mls @ 25 mls/hr IVPB Q8H [facility] Last Admin: 11/25/20 04:46 Dose: 25 mls/hr Documented by: Sodium Chloride (Saline 0.9%) 1,000 mls @ 75 mls/hr IV .[id number] [facility] Last Admin: 11/25/20 00:01 Dose: 75 mls/hr Documented by: Metronidazole 500 mg/ IV (Solution) 100 mls @ 100 mls/hr IVPB Q8HR [facility] Last Admin: 11/25/20 09:18 Dose: 100 mls/hr Documented by: Lorazepam (Lorazepam 2 Mg/Ml Inj) 0.5 mg IM Q6HR PRN PRN Reason: Anxiety Naloxone HCl (Naloxone 0.4 Mg/Ml 1 Ml Vial) 0.2 mg IV Q2M PRN PRN Reason: Opioid Reversal Nicotine (Nicotine 21mg/24hr Patch) 1 patch TRANSDERM DAILY [facility] Last Admin: 11/25/20 09:18 Dose: 1 patch Documented by: Ondansetron HCl (Ondansetron 4 Mg/2 Ml Vial) 4 mg IVP Q8HR PRN PRN Reason: Nausea And Vomiting Pantoprazole Sodium (Pantoprazole 40 Mg/10 Ml Vial) 40 mg IV DAILY [facility] Last Admin: 11/25/20 09:17 Dose: 40 mg Documented by: Objective - Vital Signs Vital signs: Vital Signs Temp 98.2 F 11/25/20 01:16 Pulse 78 11/25/20 01:16 Resp 17 11/25/20 01:16 BP 147/85 11/25/20 01:16 Pulse Ox 97 11/25/20 01:16 Intake & Output 11/24/20 11/25/20 11/25/20 18:59 06:59 18:59 Intake Total 0 0 Balance 0 0 Weight 83.915 kg Intake: Oral 0 0 Other: Voiding Method Toilet # Voids 1 - Exam Gen: This is a 50-year-old male sitting up at the side of the bed appears to be in no acute distress, well-developed, well-nourished. HEENT: Head is atraumatic, normocephalic. Pupils equal, round. Sclerae is anicteric. NECK: Supple. No JVD. No lymphadenopathy. No thyromegaly. LUNGS: Breath sounds diminished at the bases. No wheezes or rhonchi. No intercostal retractions. HEART: S1, S2 are muffled ABDOMEN: Soft. Obese. Bowel sounds are present. No masses. Lower abdominal tenderness noted on palpation with no guarding or rigidity noted.. EXTREMITIES: No pedal edema. No calf tenderness. NEUROLOGICAL: Patient is awake, alert and oriented x3. Cranial nerves 2 through 12 are grossly intact. - Labs CBC & Chem 7: 11/25/20 06:02 11/23/20 05:33 Labs: Abnormal Lab Results - Last 24 Hours (Table) 11/24/20 11/25/20 Range/Units 10:19 06:02 RBC 4.08 L (4.30-5.90) m/uL MCV 100.2 H (80.0-100.0) fL Microbiology - Last 24 Hours (Table) 11/21/20 18:57 Blood Culture - Preliminary Blood No Growth after 72 hours Assessment and Plan Assessment: Acute sigmoid diverticulitis with possible diverticular abscess, present on admission with severe abdominal pain on conservative line of management on IV antibiotic Increased AST, ALT, possibly mild hepatitis Hypertension Hyponatremia, mild History of increased MCV History of anxiety, depression History of nicotine dependence Full code Plan: Continue with current medications, management and symptomatic treatment. Patient is maintained on IV antibiotics in the form of Zosyn and Flagyl and will continue at this time. Surgery Dr. Giron following closely. Continuing with conservative management and no surgical intervention at this time. CT of the abdomen will be ordered to monitor clinical status per surgery. Patient is maintained on clear liquids and tolerating with no reports of nausea or vomit ing. Will continue to monitor vital signs and labs closely. Further recommendations to follow.
[2020-11-25 10:09] LABS: African American GFR (CKD) 119.9 (60.0-200.0); Anion Gap 8.9 mmol/L (4.00-12.00); BUN/Creat Ratio 11.25 Ratio (12.00-20.00); Carbon Dioxide 26.1 mmol/L (21.6-31.8); Non-African American GFR(CKD) 103.4 (60.0-200.0); Potassium 4.2 mmol/L (3.5-5.5)
--- NOTE | 2020-11-25 11:50 | P.PN ---
Subjective Progress Note Date: 11/25/20 Patient seen and examined at bedside. States abdominal pain is improving. He said he had a small bowel movement yesterday. Denies nausea or vomiting. Objective - Vital Signs Vital signs: Vital Signs Temp 97.9 F 11/25/20 07:55 Pulse 81 11/25/20 07:55 Resp 18 11/25/20 07:55 BP 141/90 11/25/20 07:55 Pulse Ox 98 11/25/20 07:55 Intake & Output 11/24/20 11/25/20 11/25/20 18:59 06:59 18:59 Intake Total 0 900 Balance 0 900 Weight 83.915 kg Intake: Oral 0 900 Other: Voiding Method Toilet Toilet # Voids 1 1 - Constitutional General appearance: Present: cooperative, no acute distress - Respiratory Details: No difficulty with respiration - Gastrointestinal Gastrointestinal Comment(s): Soft, mild tenderness to palpation in bilateral lower quadrants, nondistended, no rebound, no guarding - Psychiatric Psychiatric: Present: A&O x's 3 - Labs CBC & Chem 7: 11/25/20 06:02 11/25/20 06:02 Labs: Abnormal Lab Results - Last 24 Hours (Table) 11/25/20 11/25/20 Range/Units 06:02 06:02 MCV 100.2 H (80.0-100.0) fL BUN/Creatinine Ratio 11.25 L (12.00-20.00) Ratio Microbiology - Last 24 Hours (Table) 11/21/20 18:57 Blood Culture - Preliminary Blood No Growth after 72 hours Assessment and Plan Plan: Will obtain repeat CT of the abdomen and pelvis to evaluate progress of diverticulitis episode. Continue clear liquid diet for now.
[2020-11-25] MEDS: IOPAMIDOL CONTRAST (ORAL USE) VIAL PO PRN ×2 (14:30→14:31)
--- NOTE | 2020-11-25 15:55 | CT ---
EXAMINATION TYPE: CT abdomen pelvis w con DATE OF EXAM: 11/25/2020 COMPARISON: 11/21/2020 HISTORY: Abdominal pain, diverticulitis CT DLP: 959.4 mGycm Automated exposure control for dose reduction was used. CONTRAST: Performed with IV Contrast, patient injected with 100 mL of Isovue 300. Images obtained from the diaphragm to the floor the pelvis with IV contrast. Lung bases show some mild interstitial fibrosis. There is no pleural effusion. There is no pulmonary mass. Heart size is normal. There is no pericardial effusion. There are calcified small granulomata in the spleen. Liver shows no focal defect. Gallbladder appears normal. Stomach and pancreas appear normal. The bile ducts are not dilated. There is no adrenal mass. Kidneys show satisfactory contrast opacification. There is no hydronephrosi s. There is 3 cm right renal parapelvic cyst. There is no retroperitoneal adenopathy. Bladder distend s smoothly. There is inflammatory changes with fat stranding around the mid sigmoid colon. There is extraluminal 1 cm air anterior to the mid sigmoid colon. There is also linear 2 x 1 cm area of air inferior to the mid sigmoid colon. There are numerous sigmoid diverticula. Appendix is medial and appears normal. Th ere is 3 cm fluid collection in the low pelvis adjacent to the lower sigmoid colon. The lumbar vertebra have normal alignment. There is no compression fracture. Posterior elements are i ntact. Facet joints appear intact. The bony pelvis is intact. Hip joints are intact. IMPRESSION: Sigmoid diverticulitis with extraluminal air and moderate fat stranding. 3 cm abscess in the midline low pelvis. Overall is not a significant change compared to recent exam.
[2020-11-26] MEDS: metroNIDAZOLE-NS PMX 500 MG in SALINE 1 100ML.BAG IVPB SCH ×3 (01:42→16:06)
[2020-11-26] MEDS: PIPERACILLIN-TAZOBACTAM 3.375 GM in SODIUM CHLORIDE 0.9% 100 ML IVPB SCH ×3 (04:07→19:53)
[2020-11-26] MEDS: SODIUM CHLORIDE 0.9% 1,000 ML IV SCH ×2 (04:08→11:02)
[2020-11-26 07:00] LABS: Basophils # (A) 0.1 k/uL (0-0.2); Basophils % (A) 1 %; Eosinophils # (A) 0.2 k/uL (0-0.7); Eosinophils % (A) 3 %; HCT 43.8 % (39.0-53.0); HGB 14.7 gm/dL (13.0-17.5); Lymphocytes # (A) 1.8 k/uL (1.0-4.8); Lymphocytes % (A) 24 %; MCH 33.6 pg (25.0-35.0); MCHC 33.6 g/dL (31.0-37.0); MCV 100.1 fL (80.0-100.0); Mean Platelet Volume 7.2; Monocytes # (A) 0.5 k/uL (0-1.0); Monocytes % (A) 6 %; Neutrophils % (A) 65 %; Platelet Count 349 k/uL (150-450); RBC 4.38 m/uL (4.30-5.90); RDW 11.7 % (11.5-15.5); WBC 7.7 k/uL (3.8-10.6)
[2020-11-26] MEDS: HEPARIN SODIUM,PORCINE 5,000 UNIT/ML 1 ML VIAL SQ SCH ×2 (07:52→19:00)
[2020-11-26] MEDS: PANTOPRAZOLE 40 MG/10 ML VIAL IV SCH (08:30)
[2020-11-26] MEDS: NICOTINE 21MG/24HR PATCH TRANSDERM SCH (08:30)
[2020-11-26] MEDS: ALPRAZolam 0.25 MG TAB PO PRN (08:31)
[2020-11-26] MEDS: HYDROcodone/APAP 5-325MG 1 EACH TAB PO PRN ×2 (08:31→19:49)
--- NOTE | 2020-11-26 09:56 | P.PN ---
Subjective Progress Note Date: 11/26/20 Patient seen and examined at bedside. States he did have a bowel movement yesterday and states he is feeling much better than yesterday. He states that he feels some soreness in the abdomen, however no pain. He states he is greatly improved from his admission. Denies any fevers, chills. Objective - Vital Signs Vital signs: Vital Signs Temp 98.2 F 11/26/20 07:48 Pulse 81 11/26/20 07:48 Resp 16 11/26/20 07:48 BP 155/89 11/26/20 07:48 Pulse Ox 99 11/26/20 07:48 Intake & Output 11/25/20 11/26/20 11/26/20 18:59 06:59 18:59 Intake Total 2250 2100 Balance 2250 2100 Intake: Intake, IV Titration 1200 Amount Piperacillin-Tazobactam 3 200 .375 gm In Sodium Chloride 0.9% 100 ml @ 25 mls/hr IVPB Q8H [facility] Rx#: [id number] Sodium Chloride 0.9% 1, 900 000 ml @ 75 mls/hr IV . [id number] [facility] Rx#:[id number] metroNIDAZOLE-NS PMX 500 100 mg In Saline 1 100ml.bag @ 100 mls/hr IVPB Q8HR [facility] Rx#:[id number] Oral 2250 900 Other: Voiding Method Toilet Toilet Toilet # Voids 1 3 3 - Constitutional General appearance: Present: cooperative, no acute distress - Respiratory Details: No difficulty with respiration - Gastrointestinal Gastrointestinal Comment(s): Soft, nontender to deep palpation or percussion, no rebound, no guarding - Psychiatric Psychiatric: Present: A&O x's 3 - Labs CBC & Chem 7: 11/26/20 06:23 11/25/20 06:02 Labs: Abnormal Lab Results - Last 24 Hours (Table) 11/25/20 11/26/20 Range/Units 06:02 06:23 MCV 100.1 H (80.0-100.0) fL BUN/Creatinine Ratio 11.25 L (12.00-20.00) Ratio Microbiology - Last 24 Hours (Table) 11/21/20 18:57 Blood Culture - Preliminary Blood No Growth after 96 hours Assessment and Plan Plan: Repeat CT of the abdomen and pelvis was performed yesterday with oral and IV contrast. Results were unchanged from previous CAT scan. The patient is noted to have a 3 cm fluid collection, concerning for abscess. As there is an updated CT, I will have interventional radiology reevaluate for any changes in po ssibility of IR drainage. At this point, based on the patient's much improved physical exam, there is no plan for surgical intervention today. I did discuss with the patient that any changes in physical exam or worsening of his symptoms could ultimately lead to surgery requiring colectomy with ostomy formation. He is understanding of this. Case was discussed with the medical photographer team.
--- NOTE | 2020-11-26 09:59 | P.PN ---
Subjective Progress Note Date: 11/26/20 This is a 50-year-old male who was recently admitted with acute diverticulitis and possible diverticular abscess and is being closely monitored. Dr. Giron is following and patient is maintained on IV antibiotics and will continue at this time. Patient is tolerating clear liquid diet although states not much of an appetite is clear liquids are not very appetizing. Patient states his abdominal discomfort has slightly improved. Patient is passing gas and had a bowel movement yesterday. Patient is urinating with no reports of dysuria or retention. Surgery is continuing with conservative management and CT abdomen will be ordered to monitor clinical status. 11/26/2020 Patient is seen and evaluated in follow-up and states his lower quadrant abdominal discomfort has improved. Patient reports to having another bowel movement yesterday and continues to have gas. Patient is tolerating clear liqu ids although not very appetizing and requesting to have an advance in diet. CT abdomen was repeated showing sigmoid diverticulitis with moderate fat stranding along with 3 cm abscess in the midline lower pelvis with no significant change from previous exam. Clinically, patient is improving and discomfort has subsided and discuss with surgery about the possibility of abscess drainage and/or continued IV antibiotic therapy in the outpatient setting. Infectious disease to be consulted possibly. Patient is maintained on IV Flagyl and Zosyn and will continue at this time. Review of systems: Constitutional: No reports of fatigue, fever, or chills Cardiovascular: No reports of chest pain or palpitations Respiratory: No reports of shortness of breath or cough GI: No reports of nausea, vomiting, or diarrhea, reports abdominal discomfort has improved : No reports of dysuria or retention Neurovascular: No reports of weakness or numbness All medications have been reviewed Active Medications Hydrocodone Bitart/Acetaminophen (Hydrocodone/Apap 5-325mg 1 Each Tab) 1 each PO Q6HR PRN PRN Reason: Pain Last Admin: 11/26/20 08:31 Dose: 1 each Documented by: Alprazolam (Alprazolam 0.25 Mg Tab) 0.25 mg PO TID PRN PRN Reason: Anxiety Last Admin: 11/26/20 08:31 Dose: 0.25 mg Documented by: Heparin Sodium (Porcine) (Heparin Sodium,Porcine 5,000 Unit/Ml 1 Ml Vial) 5,000 unit SQ Q12HR [facility] Last Admin: 11/26/20 07:52 Dose: Not Given Documented by: Hydromorphone HCl (Hydromorphone 0.5 Mg/0.5 Ml Syringe) 0.5 mg IVP Q3HR PRN PRN Reason: Moderate Pain Last Admin: 11/21/20 21:40 Dose: 0.5 mg Documented by: Hydromorphone HCl (Hydromorphone 1 Mg/Ml 1 Ml Syringe) 1 mg IVP Q3HR PRN PRN Reason: Severe Pain Last Admin: 11/22/20 12:26 Dose: 1 mg Documented by: Piperacillin Sod/Tazobactam (Sod 3.375 gm/ Sodium Chloride) 100 mls @ 25 mls/hr IVPB Q8H [facility] Last Admin: 11/26/20 04:07 Dose: 25 mls/hr Documented by: Sodium Chloride (Saline 0.9%) 1,000 mls @ 75 mls/hr IV .[id number] [facility] Last Admin: 11/26/20 04:08 Dose: 75 mls/hr Documented by: Metronidazole 500 mg/ IV (Solution) 100 mls @ 100 mls/hr IVPB Q8HR [facility] Last Admin: 11/26/20 08:30 Dose: 100 mls/hr Documented by: Lorazepam (Lorazepam 2 Mg/Ml Inj) 0.5 mg IM Q6HR PRN PRN Reason: Anxiety Naloxone HCl (Naloxone 0.4 Mg/Ml 1 Ml Vial) 0.2 mg IV Q2M PRN PRN Reason: Opioid Reversal Nicotine (Nicotine 21mg/24hr Patch) 1 patch TRANSDERM DAILY [facility] Last Admin: 11/26/20 08:30 Dose: 1 patch Documented by: Ondansetron HCl (Ondansetron 4 Mg/2 Ml Vial) 4 mg IVP Q8HR PRN PRN Reason: Nausea And Vomiting Pantoprazole Sodium (Pantoprazole 40 Mg/10 Ml Vial) 40 mg IV DAILY [facility] Last Admin: 11/26/20 08:30 Dose: 40 mg Documented by: Objective - Vital Signs Vital signs: Vital Signs Temp 97.6 F 11/26/20 02:00 Pulse 66 11/26/20 02:00 Resp 16 11/26/20 02:00 BP 155/89 11/26/20 02:00 Pulse Ox 95 11/26/20 02:00 Intake & Output 11/25/20 11/26/20 11/26/20 18:59 06:59 18:59 Intake Total 2250 2100 Balance 2250 2100 Intake: Intake, IV Titration 1200 Amount Piperacillin-Tazobactam 3 200 .375 gm In Sodium Chloride 0.9% 100 ml @ 25 mls/hr IVPB Q8H [facility] Rx#: [id number] Sodium Chloride 0.9% 1, 900 000 ml @ 75 mls/hr IV . [id number] [facility] Rx#:[id number] metroNIDAZOLE-NS PMX 500 100 mg In Saline 1 100ml.bag @ 100 mls/hr IVPB Q8HR [facility] Rx#:[id number] Oral 2250 900 Other: Voiding Method Toilet Toilet # Voids 1 3 - Exam Gen: This is a 50-year-old male lying in the bed appears to be in no acute distress, well-developed, well-nourished. HEENT: Head is atraumatic, normocephalic. Pupils equal, round. Sclerae is anicteric. NECK: Supple. No JVD. No lymphadenopathy. No thyromegaly. LUNGS: Breath sounds diminished at the bases. No wheezes or rhonchi. No intercostal retractions. HEART: S1, S2 are muffled ABDOMEN: Soft. Obese. Bowel sounds are present. No masses. Nontender with no rigidity or guarding noted EXTREMITIES: No pedal edema. No calf tenderness. NEUROLOGICAL: Patient is awake, alert and oriented x3. Cranial nerves 2 through 12 are grossly intact. - Labs CBC & Chem 7: 11/26/20 06:23 11/25/20 06:02 Labs: Abnormal Lab Results - Last 24 Hours (Table) 11/25/20 11/26/20 Range/Units 06:02 06:23 MCV 100.1 H (80.0-100.0) fL BUN/Creatinine Ratio 11.25 L (12.00-20.00) Ratio Microbiology - Last 24 Hours (Table) 11/21/20 18:57 Blood Culture - Preliminary Blood No Growth after 96 hours Assessment and Plan Assessment: Acute sigmoid diverticulitis with possible diverticular abscess, present on admission with severe abdominal pain on conservative line of management on IV antibiotic Increased AST, ALT, possibly mild hepatitis Hypertension Hyponatremia, mild History of increased MCV History of anxiety, depression History of nicotine dependence Full code Plan: Continue with current medications, management and symptomatic treatment. Patient is maintained on IV antibiotics in the form of Zosyn and Flagyl and will continue at this time. Surgery Dr. Giron following closely. Continuing with conservative management and no surgical intervention at this time. CT of the abdomen shows continued 3 cm abscess. Patient clinically is improving and will discuss possible IR consult or infectious disease consult to either drain the abscess or continue with conservative management and outpatient IV antibiotic therapy. Patient tolerating diet and will increase to full liquids. Will continue to monitor vital signs and labs closely. Further recommendations to follow.
[2020-11-26 10:48] LABS: African American GFR (CKD) 119.9 (60.0-200.0); Anion Gap 6.7 mmol/L (4.00-12.00); Calcium 8.7 mg/dL (8.7-10.3); Carbon Dioxide 27.3 mmol/L (21.6-31.8); Non-African American GFR(CKD) 103.4 (60.0-200.0); Potassium 4.5 mmol/L (3.5-5.5)
[2020-11-27] MEDS: metroNIDAZOLE-NS PMX 500 MG in SALINE 1 100ML.BAG IVPB SCH ×3 (00:09→16:43)
[2020-11-27 01:45] VITALS: RESP 16
[2020-11-27] MEDS: PIPERACILLIN-TAZOBACTAM 3.375 GM in SODIUM CHLORIDE 0.9% 100 ML IVPB SCH ×2 (03:03→12:49)
[2020-11-27] MEDS: SODIUM CHLORIDE 0.9% 1,000 ML IV SCH (05:21)
[2020-11-27 06:13] LABS: Basophils # (A) 0.1 k/uL (0-0.2); Basophils % (A) 1 %; Eosinophils # (A) 0.2 k/uL (0-0.7); Eosinophils % (A) 2 %; HCT 43.1 % (39.0-53.0); HGB 14.4 gm/dL (13.0-17.5); Lymphocytes % (A) 24 %; MCH 33.4 pg (25.0-35.0); MCHC 33.4 g/dL (31.0-37.0); MCV 99.8 fL (80.0-100.0); Mean Platelet Volume 7.2; Monocytes # (A) 0.5 k/uL (0-1.0); Monocytes % (A) 5 %; Neutrophils # (A) 5.5 k/uL (1.3-7.7); Neutrophils % (A) 66 %; Platelet Count 354 k/uL (150-450); RBC 4.32 m/uL (4.30-5.90); RDW 11.7 % (11.5-15.5); WBC 8.3 k/uL (3.8-10.6)
[2020-11-27] MEDS: PANTOPRAZOLE 40 MG/10 ML VIAL IV SCH (07:35)
[2020-11-27] MEDS: NICOTINE 21MG/24HR PATCH TRANSDERM SCH (07:35)
[2020-11-27] MEDS: HEPARIN SODIUM,PORCINE 5,000 UNIT/ML 1 ML VIAL SQ SCH (07:35)
[2020-11-27] MEDS: ALPRAZolam 0.25 MG TAB PO PRN (07:47)
[2020-11-27] MEDS: HYDROcodone/APAP 5-325MG 1 EACH TAB PO PRN (07:47)
[2020-11-27 09:06] LABS: African American GFR (CKD) 114.2 (60.0-200.0); Anion Gap 4.8 mmol/L (4.00-12.00); BUN/Creat Ratio 8.89 Ratio (12.00-20.00); Calcium 8.7 mg/dL (8.7-10.3); Carbon Dioxide 29.2 mmol/L (21.6-31.8); Non-African American GFR(CKD) 98.5 (60.0-200.0); Potassium 4.5 mmol/L (3.5-5.5)
--- NOTE | 2020-11-27 11:51 | P.PN ---
Progress Note - Text Progress Note Date: 11/27/20 Patient had a repeated CT over the weekend. To my perusal the inflammation from the diverticulitis appears to be less than prior exam. There is still a fluid collection. Interventional reevaluated the computed tomography scan did not feel this was amenable to percutaneous drainage. Clinically however he has a benign abdomen, he's tolerating full liquid diet and stooling. He has not had any significant leukocytosis or fever during the entire admission. Therefore think he can be treated medically without surgery at this point. I spoke with infectious diseases. We'll see if he is a candidate for either a prolonged course of oral antibiotics such as Levaquin and Flagyl or possibly IV antibiotics. He'll then need a colonoscopy performed about 6-8 weeks after he completes his antibiotics.
--- NOTE | 2020-11-27 13:33 | P.CONS ---
History of Present Illness - Reason for Consult Consult date: 11/27/20 Abdominal abscess - History of Present Illness HISTORY OF PRESENT ILLNESS This is a 50-year-old male. Patient was initially admitted on November 21 for abdominal pain secondary to sigmoid diverticulitis and perforation with abscess. Patient was treated with Zosyn and Flagyl started. Repeat CAT scan on November 25 revealed sigmoid diverticulitis with extraluminal air and moderate fat stranding. 3 cm abscess in the midline low pelvis. Interventional radiology did not feel this was amenable to percutaneous drainage. Patient is tolerating a full liquid diet, positive bowel movements. Due to no improvement of the abscess with conservative treatment, consult was placed with infectious disease. Patient gives history that about one year ago he had an episode where he was constipated and he had abdominal pain which may have been his first episode of diverticulitis. He states he is careful what he eats and has not had a problem until the last month when he's been eating anything he wishes. Starting on he developed abdominal pain this continued to worsen until Friday he came in the hospital. He denies any nausea or vomiting. He did have a very chills initially at home and also had some shortness of breath at home. Now he states he feels really good. He states his abdomen is a little bit sore. CBC is unremarkable, creatinine 0.9. REVIEW OF SYSTEMS Constitutional: No fever, no chills, no night sweats. No weight change. No weakness, fatigue or lethargy. EENT: No headache. No sore throat. Lungs: No shortness of breath, cough, no sputum production. No wheezing. Cardiovascular: No chest pain, no lower extremity edema. No lightheadedness or dizziness. No syncopal episodes. Abdominal: Reports abdominal pain. No nausea, vomiting. No diarrhea. No constipation. Reports loss of appetite. Genitourinary: No dysuria, increased frequency, urgency. No urinary retention. Musculoskeletal: No myalgias. No muscle weakness. Integumentary: No wounds, no lesions. No rash or pruritus. Neurologic: No aphasia. No facial droop. No change in mentation. Endocrine: No abnormal blood sugars. PHYSICAL EXAMINATION Gen: This is a 50-year-old male. He is resting on the side of the bed bed and appears comfortable and in no acute distress. VS: Afebrile since admission, heart rate 75, blood pressure 143/90, pulse ox 95% on room air. HEENT: Head is atraumatic, normocephalic. Pupils equal, round. Sclerae is anicteric. NECK: Supple. No JVD. No lymphadenopathy. No thyromegaly. LUNGS: Clear to auscultation. No wheezes or rhonchi. No intercostal retractions. HEART: Regular rate and rhythm. No murmur. ABDOMEN: Soft. Bowel sounds are present. No masses. No abdominal tenderness. EXTREMITIES: No pedal edema. No calf tenderness. NEUROLOGICAL: Patient is awake, alert and oriented x3. Cranial nerves 2 through 12 are grossly intact. ASSESSMENT Acute diverticulitis Abdominal abscess PLAN Invanz 1 g IV piggyback for 2 week course Plan for repeat CAT scan as an outpatient Thank you kindly for this consultation The above dictated assessment and findings were discussed with Dr. Herrera. The impression and plan of care have been directed as dictated. Latosha Kingston nurse practitioner acting as scribe for Dr. Herrera. Past Medical History Past Medical History: No Reported History History of Any Multi-Drug Resistant Organisms: None Reported Past Surgical History: No Surgical Hx Reported Past Anesthesia/Blood Transfusion Reactions: No Reported Reaction Past Psychological History: Anxiety, Depression Smoking Status: Current every day smoker Past Alcohol Use History: Occasional Past Drug Use History: None Reported Medications and Allergies Home Medications Medication Instructions Recorded Confirmed Type Ertapenem [INVanz] 1 gm IVPB Q24H #14 bag 11/27/20 Rx Allergies Allergy/AdvReac Type Severity Reaction Status Date / Time No Known Allergies Allergy Verified 11/21/20 18:26 Physical Exam Vitals: Vital Signs Temp Pulse Resp BP Pulse Ox 11/27/20 07:14 97.8 F 75 16 143/90 95 11/27/20 01:44 97.5 F L 99 16 135/83 96 11/26/20 19:07 97.6 F 72 18 164/99 96 Intake and Output 11/26/20 11/27/20 11/27/20 22:59 06:59 14:59 Intake Total 600 Balance 600 Intake: Intake, IV Titration 600 Amount Sodium Chloride 0.9% 1, 600 000 ml @ 75 mls/hr IV . [id number] [facility] Rx#:[id number] Other: Voiding Method Toilet # Voids 1 3 Results CBC & Chem 7: 11/27/20 05:57 11/27/20 05:57 Labs: Abnormal Lab Results - Last 24 Hours (Table) 11/27/20 Range/Units 05:57 BUN 8.0 L (9.0-27.0) mg/dL BUN/Creatinine Ratio 8.89 L (12.00-20.00) Ratio Microbiology - Last 24 Hours (Table) 11/21/20 18:57 Blood Culture - Preliminary Blood No Growth after 120 hours
--- NOTE | 2020-11-27 14:12 | P.PN ---
Subjective Progress Note Date: 11/27/20 This is a 50-year-old male who was recently admitted with acute diverticulitis and possible diverticular abscess and is being closely monitored. Dr. Giron is following and patient is maintained on IV antibiotics and will continue at this time. Patient is tolerating clear liquid diet although states not much of an appetite is clear liquids are not very appetizing. Patient states his abdominal discomfort has slightly improved. Patient is passing gas and had a bowel movement yesterday. Patient is urinating with no reports of dysuria or retention. Surgery is continuing with conservative management and CT abdomen will be ordered to monitor clinical status. 11/26/2020 Patient is seen and evaluated in follow-up and states his lower quadrant abdominal discomfort has improved. Patient reports to having another bowel movement yesterday and continues to have gas. Patient is tolerating clear liqu ids although not very appetizing and requesting to have an advance in diet. CT abdomen was repeated showing sigmoid diverticulitis with moderate fat stranding along with 3 cm abscess in the midline lower pelvis with no significant change from previous exam. Clinically, patient is improving and discomfort has subsided and discuss with surgery about the possibility of abscess drainage and/or continued IV antibiotic therapy in the outpatient setting. Infectious disease to be consulted possibly. Patient is maintained on IV Flagyl and Zosyn and will continue at this time. 11/27/2020 Patient is seen in follow-up and was seen and evaluated by interventional radiology and per their recommendations the abscess as noted on the CT is unable to be drained and a drainage catheter is unable to be placed. Patient has clinically responded to IV antibiotics and continues to have some tenderness in the lower quadrant although no pain noted. Patient's diet was advanced yesterday and tolerating with no reports of nausea or vomiting noted. Patient is passing gas and having bowel movements. No reports of chest pain, shortness of breath, or palpitations. Case management and social work following working on discharge planning as patient has no insurance at this moment and is being set up for outpatient IV antibiotic therapy. Patient will need to come to [facility] infusion daily for his dose of antibiotics. Infectious disease has seen and evaluated the patient. Review of systems: Constitutional: No reports of fatigue, fever, or chills Cardiovascular: No reports of chest pain or palpitations Respiratory: No reports of shortness of breath or cough GI: No reports of nausea, vomiting, or diarrhea, reports abdominal discomfort has improved : No reports of dysuria or retention Neurovascular: No reports of weakness or numbness All medications have been reviewed Active Medications Hydrocodone Bitart/Acetaminophen (Hydrocodone/Apap 5-325mg 1 Each Tab) 1 each PO Q6HR PRN PRN Reason: Pain Last Admin: 11/27/20 07:47 Dose: 1 each Documented by: Alprazolam (Alprazolam 0.25 Mg Tab) 0.25 mg PO TID PRN PRN Reason: Anxiety Last Admin: 11/27/20 07:47 Dose: 0.25 mg Documented by: Heparin Sodium (Porcine) (Heparin Sodium,Porcine 5,000 Unit/Ml 1 Ml Vial) 5,000 unit SQ Q12HR [facility] Last Admin: 11/27/20 07:35 Dose: Not Given Documented by: Hydromorphone HCl (Hydromorphone 0.5 Mg/0.5 Ml Syringe) 0.5 mg IVP Q3HR PRN PRN Reason: Moderate Pain Last Admin: 11/21/20 21:40 Dose: 0.5 mg Documented by: Hydromorphone HCl (Hydromorphone 1 Mg/Ml 1 Ml Syringe) 1 mg IVP Q3HR PRN PRN Reason: Severe Pain Last Admin: 11/22/20 12:26 Dose: 1 mg Documented by: Piperacillin Sod/Tazobactam (Sod 3.375 gm/ Sodium Chloride) 100 mls @ 25 mls/hr IVPB Q8H [facility] Last Admin: 11/27/20 12:49 Dose: 25 mls/hr Documented by: Sodium Chloride (Saline 0.9%) 1,000 mls @ 75 mls/hr IV .[id number] [facility] Last Admin: 11/27/20 05:21 Dose: 75 mls/hr Documented by: Metronidazole 500 mg/ IV (Solution) 100 mls @ 100 mls/hr IVPB Q8HR [facility] Last Admin: 11/27/20 07:34 Dose: 100 mls/hr Documented by: Lorazepam (Lorazepam 2 Mg/Ml Inj) 0.5 mg IM Q6HR PRN PRN Reason: Anxiety Naloxone HCl (Naloxone 0.4 Mg/Ml 1 Ml Vial) 0.2 mg IV Q2M PRN PRN Reason: Opioid Reversal Nicotine (Nicotine 21mg/24hr Patch) 1 patch TRANSDERM DAILY [facility] Last Admin: 11/27/20 07:35 Dose: 1 patch Documented by: Ondansetron HCl (Ondansetron 4 Mg/2 Ml Vial) 4 mg IVP Q8HR PRN PRN Reason: Nausea And Vomiting Pantoprazole Sodium (Pantoprazole 40 Mg/10 Ml Vial) 40 mg IV DAILY [facility] Last Admin: 11/27/20 07:35 Dose: 40 mg Documented by: Objective - Vital Signs Vital signs: Vital Signs Temp 97.8 F 11/27/20 07:14 Pulse 75 11/27/20 07:14 Resp 16 11/27/20 07:14 BP 143/90 11/27/20 07:14 Pulse Ox 95 11/27/20 07:14 Intake & Output 11/26/20 11/27/20 11/27/20 18:59 06:59 18:59 Intake Total 450 600 Balance 450 600 Intake: Intake, IV Titration 600 Amount Sodium Chloride 0.9% 1, 600 000 ml @ 75 mls/hr IV . [id number] [facility] Rx#:[id number] Oral 450 Other: Voiding Method Toilet Toilet # Voids 1 3 - Exam Gen: This is a 50-year-old male sitting up at the side of the bed appears to be in no acute distress, well-developed, well-nourished. HEENT: Head is atraumatic, normocephalic. Pupils equal, round. Sclerae is anicteric. NECK: Supple. No JVD. No lymphadenopathy. No thyromegaly. LUNGS: Breath sounds diminished at the bases. No wheezes or rhonchi. No intercostal retractions. HEART: S1, S2 are muffled ABDOMEN: Soft. Obese. Bowel sounds are present. No masses. Nontender with no rigidity or guarding noted EXTREMITIES: No pedal edema. No calf tenderness. NEUROLOGICAL: Patient is awake, alert and oriented x3. Cranial nerves 2 through 12 are grossly intact. - Labs CBC & Chem 7: 11/27/20 05:57 11/27/20 05:57 Labs: Abnormal Lab Results - Last 24 Hours (Table) 11/26/20 11/27/20 Range/Units 06:23 05:57 BUN 8.0 L 8.0 L (9.0-27.0) mg/dL BUN/Creatinine Ratio 10.00 L 8.89 L (12.00-20.00) Ratio Microbiology - Last 24 Hours (Table) 11/21/20 18:57 Blood Culture - Preliminary Blood No Growth after 120 hours Assessment and Plan Assessment: Acute sigmoid diverticulitis with possible diverticular abscess, present on admission with severe abdominal pain on conservative line of management on IV antibiotic Increased AST, ALT, possibly mild hepatitis Hypertension Hyponatremia, mild History of increased MCV History of anxiety, depression History of nicotine dependence Full code Plan: Continue with current medications, management and symptomatic treatment. Patient is maintained on IV antibiotics in the form of Zosyn and Flagyl and will continue at this time. Infectious disease has seen and evaluated the patient and will be continued on IV Invanz and will be following up at the [facility] infusion center for daily IV antibiotic therapy. Will continue to follow with surgery during hospitalization. Surgery Dr. Giron following closely. Continuing with conservative management and no surgical intervention at this time. Patient was seen and evaluated by interventional radiology and they are unable to drain the abscess or place a catheter at this time. Patient clinically is improving and will continue with conservative management and outpatient IV antibiotic therapy. Patient will follow-up with surgery in the outpatient setting. Patient tolerating diet. Will continue to monitor vital signs and labs closely. Further recommendations to follow. Patient states he is being discharged today.
[2020-11-27 14:13] VITALS: BP 154/97; PULSE 71; TEMP 97.9
[2020-11-27] MEDS ORDERED: ERTAPENEM 1 GM in SODIUM CHLORIDE 0.9% 50 ML IVPB STA (14:29)
--- NOTE | 2020-11-27 16:16 | P.DS ---
Providers Date of admission: 11/21/20 20:08 Expected date of discharge: 11/27/20 Attending physician: Gemini Giron Consults: 11/21/20 20:08 Consult Physician Urgent Consulting Provider: Jn Miranda Consult Reason/Comments: medical care Do you want consulting provider notified?: Yes 11/22/20 17:23 Consult Physician Urgent Consulting Provider: Gemini Giron Consult Reason/Comments: surgical Do you want consulting provider notified?: Yes, Notify in am 11/27/20 09:42 Consult Physician Routine Consulting Provider: Hanh Herrera Consult Reason/Comments: IV abx Do you want consulting provider notified?: Already Contacted Primary care physician: Stated None Hospital Course: Final diagnosis Acute sigmoid diverticulitis with possible diverticular abscess, present on admission with severe abdominal pain on conservative line of management on IV antibiotic Increased AST, ALT, possibly mild hepatitis Hypertension Hyponatremia, mild History of increased MCV History of anxiety, depression History of nicotine dependence Full code Discharge disposition Patient is being discharged in a stable condition with guarded prognosis to home. Patient will follow-up with Dr. Arroyo in the outpatient setting upon discharge. Patient is to continue with IV antibiotics per infectious disease recommendations in the form of Invanz daily at the [facility] infusion center. Patient will follow up with surgery Dr. Giron in the outpatient setting. Total time taken is greater than 35 minutes. Hospital course This is a 50-year-old male who was recently admitted with acute diverticulitis and possible diverticular abscess and was being closely monitored. Patient was seen and evaluated by surgery Dr. Giron and started on conservative management and IV antibiotic therapy and clear liquids. Patient's abdominal discomfort has improved and is tolerating diet and diet was advanced to full liquids with no reports of nausea or vomiting and patient is actively having bowel movements. Had a repeat CT abdomen done which continued to show a 3 cm abscess in interventional radiology was consulted. Per IR, abscesses unable to be drained or catheter placed. Given patient's clinical status of improvement surgery prefers to continue with conservative management and IV antibiotic therapy in the outpatient setting. Is to receive a midline today and will continue with IV Invanz daily at the [facility] center. Case management has made arrangements with the patient for this and medicaid is currently pending. Patient will follow-up with surgery in the outpatient setting in 1-2 weeks. Patient also instructed to establish with a primary care provider and resources and information was provided. Currently no reports of chest pain, shortness of breath, or palpitations. Patient is afebrile. No reports of nausea or vomiting and patient is tolerating diet. Patient will be discharged home today after midline placement. On exam vital signs are stable. Temp is 97.9F, pulse is 71, respirations are 16, blood pressure is 154/97, oxygen saturation is 98% on room air. Cardio S1, S2 are muffled. Respiratory system shows diminished breath sounds at the bases with no wheezing or rhonchi noted. Abdomen is soft and nontender. Nervous system shows no focal deficits. Please refer to medication reconciliation sheet for a list of medications. Patient Condition at Discharge: Stable Plan - Discharge Summary Discharge Rx Participant: No New Discharge Prescriptions: New Ertapenem [INVanz] 1 gm IVPB Q24H #14 bag HYDROcodone/APAP 5-325MG [Bearden 5-325] 1 each PO Q6HR PRN #12 tab PRN Reason: Pain Pantoprazole Sodium [Protonix] 40 mg PO DAILY #30 tablet. Discharge Medication List Ertapenem [INVanz] 1 gm IVPB Q24H #14 bag 11/27/20 [Rx] HYDROcodone/APAP 5-325MG [Bearden 5-325] 1 each PO Q6HR PRN #12 tab 11/27/20 [Rx] Pantoprazole Sodium [Protonix] 40 mg PO DAILY #30 tablet. 11/27/20 [Rx] Follow up Appointment(s)/Referral(s): Thania Arroyo MD [REFERRING] - 1-2 Days Gemini Giron DO [Doctor of Osteopathic Medicine] - 1 Week Hanh Herrera MD [STAFF PHYSICIAN] - 2 Weeks Ambulatory/Diagnostic Orders: Basic Metabolic Panel [LAB.AMB] Location: None Selected Complete Blood Count w/diff [LAB.AMB] Location: None Selected Activity/Diet/Wound Care/Special Instructions: Patient needs a midline for discharge Continue with full liquids and advance slowly as tolerated Continue with IV antibiotic therapy Follow-up with surgery in the outpatient setting I'll primary care provider upon discharge Juan José Procedures here at [facility] will be preforming your daily IV antibiotics. Your first appointment is on 11-28 at 1230. If you have any questions contact them at [phone]. Discharge Disposition: HOME SELF-CARE
== END 2020-11-27 17:55 | disposition home or self-care (01) | DRG 392 ==
LOC: EC 16:29 → 5NMEDONC 20:08
PROVIDERS: ADMIT Surgery; ATTEND Surgery
PROC: 05HA33Z Insertion of Infusion Device into Left Brachial Vein, Percutaneous Approach (ICD-10-PCS; principal; 2020-11-27)
DX: K57.20 Diverticulitis of large intestine with perforation and abscess without bleeding (principal); E87.1 Hypo-osmolality and hyponatremia; F17.210 Nicotine dependence, cigarettes, uncomplicated; F32.9 Major depressive disorder, single episode, unspecified; F41.9 Anxiety disorder, unspecified; I10 Essential (primary) hypertension; K59.00 Constipation, unspecified
CPT/HCPCS: 36410; 36415; 74177; 76937; 80048; 80053; 80074; 81001; 82150; 83605; 83690; 85025; 87040; 96361; 96374; 96375; 96376; 99291

== ENCOUNTER → 2020-12-12 | Outpatient (CLI) | payer OTHER ==
--- NOTE | 2020-12-12 16:09 | CT ---
EXAMINATION TYPE: CT abdomen pelvis w con DATE OF EXAM: 12/12/2020 COMPARISON: 11/25/2020 and 11/21/2020 HISTORY: 50-year-old male K5 7.21, diverticulitis TECHNIQUE: Contiguous axial scanning of the abdomen and pelvis following administration of 100 ml Iso kimberly 300 IV contrast. Delayed images through the kidneys and coronal/sagittal reconstructions perform ed. CT DLP: 944.8 mGycm Automated exposure control for dose reduction was used. FINDINGS: Heart normal size without pericardial effusion. Reticular subpleural changes in the visualized lower lung redemonstrated, possible early honeycombing. No pleural effusion. Liver borderline in size of 17.7 cm. Tiny 5 mm hepatic lobe cyst is unchanged. Portal venous system i s patent. No biliary ductal dilatation. The bladder, adrenal glands, left kidney, and pancreas appear within normal limits. 3.2 cm centrally located cyst right kidney. Calcification spleen compatible with prior granulomatous disease. Some borderline-sized retroperitoneal left para-aortic lymph nodes measuring up to 8 mm are unchanged . No dilated small bowel. Normal appendix. [id number] stool. Redemonstrated sigmoid diverticulosis. There is persistent and slightly increasing inflammation centered along the mid to distal sigmoid and of 9 cm with continued wall and surrounding soft tissue thickening and inflammatory stranding. Localized tiny foci of extraluminal air are redemonstrated extending superiorly to the previous abnor mal fluid collection along the lower prerectal region has resolved. In addition, there is a new tiny focus of air along the left posterior bladder dome. The inflammatory changes from the sigmoid colon abut the left posterior bladder on axial images 67 and sagittal image 59. Multiple pelvic phleboliths. No pelvic lymphadenopathy. Bones: Hypertrophic facet arthropathy mid to lower lumbar spine. Moderate degenerative disc disease L 5-S1. IMPRESSION: 1. ONGOING INFLAMMATION RELATING TO ACUTE DIVERTICULITIS ALONG THE MID TO DISTAL SIGMOID FOR A SPAN O F APPROXIMATELY 9 CM. MODERATE TO SEVERE SURROUNDING INFLAMMATION PERSISTS AND APPEARS SLIGHTLY WORSE JN. A FEW SMALL FOCI OF EXTRALUMINAL AIR REMAIN JUST ADJACENT. 2. WHILE THE ABNORMAL FLUID COLLECTION IN THE PRERECTAL REGION HAS RESOLVED, THERE IS NOW A SMALL FOC US OF AIR ALONG THE LEFT POSTERIOR BLADDER WALL. INFLAMMATORY CHANGES EXTEND TO ABUT THE BLADDER W ALL, EARLY FISTULIZATION IS DIFFICULT TO EXCLUDE. CORRELATE WITH URINALYSIS.
== END | disposition home or self-care (01) ==
LOC: RADCTMAIN 13:32
PROVIDERS: ATTEND Internal Medicine Infectious Disease
DX: K57.21 Diverticulitis of large intestine with perforation and abscess with bleeding (principal); K52.9 Noninfective gastroenteritis and colitis, unspecified; Z98.890 Other specified postprocedural states
CPT/HCPCS: 74177; Q9967

== ENCOUNTER → 2020-12-21 | Outpatient (CLI) | payer OTHER ==
[2020-12-21 14:04] LABS: Basophils % (A) 1 %; Eosinophils # (A) 0.1 k/uL (0-0.7); Eosinophils % (A) 1 %; HCT 44.2 % (39.0-53.0); HGB 14.7 gm/dL (13.0-17.5); Lymphocytes # (A) 2.4 k/uL (1.0-4.8); Lymphocytes % (A) 30 %; MCH 33.2 pg (25.0-35.0); MCHC 33.3 g/dL (31.0-37.0); MCV 99.7 fL (80.0-100.0); Mean Platelet Volume 6.9; Monocytes # (A) 0.4 k/uL (0-1.0); Monocytes % (A) 5 %; Neutrophils % (A) 62 %; Platelet Count 332 k/uL (150-450); RBC 4.43 m/uL (4.30-5.90); RDW 12.1 % (11.5-15.5)
[2020-12-21 14:13] LABS: INR 0.9 (<1.2); Partial Thromboplastin Time 22.3 sec (22.0-30.0); Prothrombin Time 10.2 sec (9.0-12.0)
[2020-12-21 14:15] LABS: African American GFR (CKD) >90 (>60 ml/min/1.73 sqM); Anion Gap 9 mmol/L; Blood Urea Nitrogen 6 mg/dL (9-20); Calcium 9.7 mg/dL (8.4-10.2); Carbon Dioxide 30 mmol/L (22-30); Chloride 102 mmol/L (98-107); Glucose 92 mg/dL (74-99); Non-African American GFR(CKD) >90 (>60 ml/min/1.73 sqM); Potassium 4.4 mmol/L (3.5-5.1); Sodium 141 mmol/L (137-145)
== END | disposition home or self-care (01) ==
LOC: LABPAT 12:38
PROVIDERS: ATTEND Surgery
DX: Z01.818 Encounter for other preprocedural examination (principal); Z01.812 Encounter for preprocedural laboratory examination; Z20.822 Contact with and (suspected) exposure to COVID-19
CPT/HCPCS: 86900; 86901; 80048; 85025; 85610; 85730; 86850; 93005; 36415; U0003; C9803; U0005

== ENCOUNTER 2020-12-27 09:57 | Inpatient (IN) | payer OTHER ==
[~2020-12-27 09:57] MED LIST: DEXAMETHASONE SOD PHOSPHATE 4 MG/ML 1 ML VIAL IV ONE; HEPARIN SODIUM,PORCINE 5,000 UNIT/ML 1 ML VIAL SQ PRN; HYDROmorphone 0.5 MG/0.5 ML SYRINGE IVP PRN; LIDOCAINE 1% (10MG/ML) FOR IV START INTRADERMA PRN; MIDAZOLAM 2 MG/2 ML VIAL IV PRN; metroNIDAZOLE-NS PMX 500 MG in SALINE 1 100ML.BAG IVPB PRN
[2020-12-27] MEDS ORDERED: ONDANSETRON 4 MG/2 ML VIAL ONE (10:25)
[2020-12-27] MEDS: LACTATED RINGERS 1,000 ML IV SCH ×2 (10:53→18:29)
[2020-12-27] MEDS ORDERED: fentaNYL (PF) 50 MCG/ML 2 ML AMP IVP ONE (11:02)
[2020-12-27] MEDS ORDERED: MIDAZOLAM 2 MG/2 ML VIAL IVP ONE (11:02)
[2020-12-27] MEDS ORDERED: ONDANSETRON 4 MG/2 ML VIAL IVP PRN (11:43)
[2020-12-27] MEDS ORDERED: diphenhydrAMINE 50 MG/ML 1 ML VIAL IVP PRN (11:43)
[2020-12-27] MEDS ORDERED: NALOXONE 0.4 MG/ML 1 ML VIAL IV PRN ×2 (11:43→15:03)
[2020-12-27] MEDS ORDERED: NALBUPHINE 10 MG/ML (1 ML AMP) IV PRN (11:43)
--- NOTE | 2020-12-27 11:43 | P.ANPRN ---
Procedure Note - Anesthesia - Epidural/Spinal Epidural Continuous Time Out Performed: Yes Date of Procedure: 12/27/20 Procedure Start Time: 11:02 Procedure Stop Time: 11:13 Location of Patient: PreOp Indication: Acute Post-Operative Pain, Requested by Surgeon Sedation Type: Sedate with meaningful contact maintained Preparation: Sterile Prep Number of Attempts: 1 Position: Sitting Catheter Depth at Skin (cm): 10 Catheter: Indwelling Needle Guage: 18 Injectate: Test Dose Lidocaine1.5% w/1:200,000 epi Narrative: Sterile protocol. +Local +18g touhy LION to air at 5cm. Hydrodisection with 4cc saline. Catheter threaded to 10cc. Neg aspiration. Neg test dose. Secured and dressed. Blood Aspirated: No Pain Paresthesia on Injection Noted: No Events: Uneventful and Well Tolerated
--- NOTE | 2020-12-27 11:53 | P.HPIHPCON ---
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 Urology was consulted for bilateral stents placement to help with ureter identification. Discussed with him the risk and benefit. Discussed with him the purpose of this is to help with ureter identification Consent for Procedure: I have explained the operation/procedure to the patient, including the risks, be nefits, side effects, alternative therapies (including not receiving the proposed treatment or service), the likelihood of the patient achieving his/her goals, and potential recuperation problems for the procedure/sedation/analgesia, as well as any blood products, if indicated. I also explained to the patient the risks, benefits and side effects of the alternatives, as well as the risks related to not receiving the proposed procedure, care, treatment, or services. Past Medical History Past Medical History: No Reported History Additional Past Medical History / Comment(s): diverticulitis with perforation inpt 11/21/20-11/27/20. PICC line lt arm with antibiotic History of Any Multi-Drug Resistant Organisms: None Reported Past Surgical History: No Surgical Hx Reported Additional Past Surgical History / Comment(s): tubes in ears Past Anesthesia/Blood Transfusion Reactions: No Reported Reaction Smoking Status: Current every day smoker - Past Family History Brother(s) Family Medical History: Cancer Additional Family Medical History / Comment(s): leukemia Medications and Allergies Home Medications Medication Instructions Recorded Confirmed Type Pantoprazole Sodium [Protonix] 40 mg PO DAILY #30 tablet. 11/27/20 12/22/20 Rx Piperacillin-Tazobactam Iv 4.5 gm IV TID 12/22/20 12/22/20 History Allergies Allergy/AdvReac Type Severity Reaction Status Date / Time pet dander Allergy allergy Uncoded 12/27/20 10:34 symptoms Surgical - Exam Vital Signs Temp Pulse Resp BP Pulse Ox 98.1 F 67 16 145/84 97 12/27/20 10:35 12/27/20 10:35 12/27/20 10:35 12/27/20 10:35 12/27/20 10:35 - General well developed, well nourished, no distress, no pain - Eyes PERRL, normal ocular movement - ENT normal nares, normal mucosa - Psychiatric oriented to time, oriented to person, oriented to place Assessment and Plan Assessment: 50 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
[2020-12-27] MEDS ORDERED: HEPARIN SODIUM,PORCINE 5,000 UNIT/ML 1 ML VIAL SQ PRN (12:13)
[2020-12-27] MEDS ORDERED: NEOSTIGMINE 1 MG/ML 10 ML VIAL ONE (12:42)
[2020-12-27] MEDS ORDERED: ROCURONIUM 10 MG/ML (5 ML VIAL) IV ONE (12:42)
[2020-12-27] MEDS ORDERED: LIDOCAINE 1% INJ 10MG/ML (20 ML MDV) ONE (12:42)
[2020-12-27] MEDS ORDERED: GLYCOPYRROLATE 0.2 MG/ML 2 ML VIAL ONE (12:42)
[2020-12-27] MEDS ORDERED: KETAMINE 10 MG/ML 20 ML VIAL ONE (12:42)
[2020-12-27] MEDS ORDERED: SUCCINYLCHOLINE CHLORIDE 100 MG/5 ML SYR IV ONE (12:42)
[2020-12-27] MEDS ORDERED: PROPOFOL 10 MG/ML 20 ML VIAL IV ONE (12:42)
[2020-12-27] MEDS ORDERED: MIDAZOLAM 2 MG/2 ML VIAL ONE (12:42)
[2020-12-27] MEDS ORDERED: HYDROmorphone (PF) 1 MG/ML ONE (12:42)
[2020-12-27] MEDS ORDERED: fentaNYL (PF) 50 MCG/ML 2 ML AMP ONE (12:42)
[2020-12-27] MEDS ORDERED: LACTATED RINGERS 1,000 ML IV ONE ×2 (13:20→14:51)
--- NOTE | 2020-12-27 13:35 | FL ---
Fluoroscopy HISTORY: Stent placement 8 seconds fluoroscopy time supplied to the referring clinician. 2 intraoperative C-arm images docume nt the procedure. See dictated report from urology.
--- NOTE | 2020-12-27 15:03 | P.OP ---
Date of Procedure: 12/27/20 Preoperative Diagnosis: acute and chronic diverticulitis Postoperative Diagnosis: Acute and chronic diverticulitis Procedure(s) Performed: Sigmoid colon resection, placement of JOSE drain Anesthesia: WILBERTO Surgeon: Gemini Giron Estimated Blood Loss (ml): 100 Pathology: other (Sigmoid colon) Condition: stable Disposition: PACU Indications for Procedure: The patient had diverticulitis with abscess but fairly benign abdominal exam. He was treated with IV antibiotics as outpatient and follow-up CT showed continuing diverticulitis Description of Procedure: The patient's taken the operative suite. Urology was kind enough to place ureteral stents preoperatively. He's then prepped and draped in the usual sterile manner under general endotracheal anesthetic. The abdomen is entered through a lower midline incision. Small bleeding points are controlled with electrocautery. The abdominal and pelvic contents were examined. The spleen was small. The liver was unremarkable. Gallbladder showed no evidence of cholelithiasis. The majority the colon was palpated is unremarkable. The tip of the appendix was stuck to the area of diverticulitis. There was dense area of chronic appearing diverticulitis in the sigmoid colon. This was also. Adherent to the posterior wall of the bladder. A Bookwalter retractor was placed. The descending colon and sigmoid colon were mobilized along the white line of Toldt. The appendix was tediously dissected off the diverticulitis. The sigmoid colon was bluntly dissected off the posterior wall of the bladder. A site was then chosen proximally where the bowel was soft. Opening was made in the mesentery. A LACY stapler was placed and fired. The mesentery was then taken down with LigaSure. The sigmoidal artery and vein are dissected free and suture ligated with 0 Vicryl. The sigmoid is then dissected out of the sacrum. The lateral attachments are taken down with LigaSure. A site was then chosen distally for resection. A contour stapler was placed and fired. The specimen was passed off. The course of the ureters was reidentified. They were intact. There is minimal oozing noted but no active bleeding. Staple line of the proximal bowel was then resected. The sigmoid colon was fairly narrow so a 25 LACY stapler was chosen. The anvil was placed proximal to a pursestring and the pursestring was tied down. [facility] then went below and easily passed a sizer. The LACY stapler was then advanced per rectum to the appropriate depth. The attachment prong was advanced until the orange portion was visualized. The anvil was then attached to the prong and the stapler was closed until the indicator was in the mid green portion. It was held for minute. It was then fired. It was derotated and removed. Warm saline was then placed in the pelvis. The proximal bowel was manually compressed. A sigmoidoscope was passed into the rectum and repeatedly inflated. The bowel inflated with air several times and showed a airtight anastomosis. The irrigant was then suctioned out. The anastomosis was reinforced anteriorly with some 3-0 Vicryl Lembert sutures. Retractors were then removed. Due to the amount of inflammation at the tip of the appendix it was decided to remove the appendix. Opening was made near the base and a 0 Vicryl suture was tied. The mesentery was then taken down with LigaSure. The appendix was transected passed off. The abdomen was irrigated and aspirated. A 10 mm flat drain was placed into the pelvis. The small bowel was then allowed to lay in gentle loops. This was covered with omentum. The fascia and peritoneum were closed with 1 PDS. The skin was closed with casie. The drain was sutured in place with 3-0 nylon. Sterile dressing was applied. Stents will be removed prior to going to the recovery room. He tolerated the procedure without difficulty and was taken recovery room in satisfactory condition. According to or personnel, WERE correct
--- NOTE | 2020-12-27 15:10 | P.OP ---
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 Urology was consulted for bilateral stents placement to help with ureter identification. Discussed with him the risk and benefit. Discussed with him the purpose of this is to help with ureter identification Operative Findings: No obvious fisula identified on cystoscopy Description of Procedure: Patient was brought to the operating room, general anesthesia was induced. He prepped and draped in sterile fashion and placed in dorsal lithotimy position. Cystoscope fitted with 22 Fr Catheter was inserted per urethra. Cystoscope was performed which showed no abnormality within the bladder. No obvious fisula was identified. next the left ureter was intubated with a 6 Fr open end catheter, and catheter was advanced to proximal ureter and location was confirmed on fluorscopy, a 5 Fr catheter was also placed in the right ureter and advanced to the proximal ureter and location was confirmed on fluorscopy. Next a 16 Fr catheter was placed in the bladder, the ureter catheter were secured to the bain. Repeat image was obtained at conclusion of the case to ensure the catheter are in the correct location. At this time patient was positioned for th e sigmoid resection. The ureteral catheter will be removed at the end of the case
[2020-12-27] MEDS ORDERED: ERTAPENEM 1 GM in SODIUM CHLORIDE 0.9% 50 ML IVPB SCH (15:15)
[2020-12-27] MEDS: ROPIVACAINE 250 MG, HYDROMORPHONE (PF) 5 MG in SODIUM CHLORIDE 0.9% 200 ML EPIDURAL PRN ×2 (15:58→16:20)
[2020-12-27] MEDS ORDERED: PIPERACILLIN TAZOBACTAM IV SCH (16:00)
[2020-12-27] MEDS: D5-0.45% NACL WITH KCL 20MEQ/L 1,000 ML IV SCH (17:36)
[2020-12-27] MEDS: PIPERACILLIN-TAZOBACTAM 3.375 GM in SODIUM CHLORIDE 0.9% 100 ML IVPB SCH (17:58)
[2020-12-27] MEDS: NICOTINE 14MG/24HR PATCH TRANSDERM SCH (17:58)
[2020-12-27] MEDS: METOCLOPRAMIDE 5 MG/ML 2 ML VIAL IVP SCH ×2 (17:58→22:32)
[2020-12-27] MEDS: KETOROLAC 15 MG/ML 1 ML VIAL IVP SCH (18:33)
[2020-12-27] MEDS: HEPARIN SODIUM,PORCINE 5,000 UNIT/ML 1 ML VIAL SQ SCH (20:22)
--- NOTE | 2020-12-27 23:07 | CONS ---
CONSULTATION DATE OF SERVICE: 12/27/2020. REASON FOR CONSULTATION: Diverticulitis. HISTORY OF PRESENT ILLNESS: The patient is a 50-year-old male who was recently admitted in this facility when the patient was diagnosed with diverticulitis and a small abscess. The patient was advised IV antibiotic therapy initially with Invanz. Subsequently a repeat CT scan did show evidence of persistent diverticulitis with slight worsening. Antibiotic was switched over to Zosyn. The patient's care was discussed in detail with Dr. Giron and the patient has been admitted electively to hospital today for sigmoid resection and end to end anastomosis. The patient's surgery completed this afternoon. Infectious Disease was consulted for management of antibiotic therapy. The patient was seen in the postop unit where the patient has been recovering from the anesthesia. The patient denies having any fever or any chills. Complaining of pain to the lower abdominal area, more of a dull aching at times sharp, 5-6 out of 10 and no radiation. Some nausea but no vomiting. No chest pain, shortness of breath or cough and no diarrhea or constipation. REVIEW OF SYSTEMS: Positive points have been mentioned in HPI. Rest of the systems are negative. PAST MEDICAL HISTORY: Diverticulitis with perforation and abscess. PAST SURGICAL HISTORY: Tubes in the ear. SOCIAL HISTORY: Current everyday smoker. No drinking or drug use. FAMILY HISTORY: Mother history of leukemia. ALLERGIES: No known drug allergies. MEDICATIONS: The patient is currently on Benadryl, heparin, Dilaudid, Toradol, Reglan, Narcan, Zosyn 3.375 g q.8h. EXAMINATION: Blood pressure is 111/73 with a pulse of 91. Temperature 97.6. He is 93% on room air. General description is a middle-aged male lying in bed in no distress. No tachypnea or accessory muscles of respiration use. HEENT: Examination shows no pallor or scleral icterus. Oral mucous membranes dry. No pharyngeal erythema or thrush. NECK: Trachea central. No thyromegaly. LUNGS: Unlabored breathing. Clear to auscultation anteriorly with no wheeze or crackles. HEART S1, S2. Regular rate and rhythm. ABDOMEN: Soft, no tenderness. No guarding. No rigidity. No organomegaly. EXTREMITIES: No edema of the feet. SKIN examination: No rash or mass palpable. NEUROLOGICAL: Patient is awake, alert, oriented times three. Mood and affect normal. LAB: No labs have been obtained this admission. DIAGNOSTIC IMPRESSION AND PLAN: Patient with complicated diverticulitis with perforation and abscess. The patient was noticed to have sigmoid diverticulitis with to the bladder, but no evidence of any colovesical fistula. The patient is status post sigmoid resection and end-to-end anastomosis. Abdominal culture has been obtained which will be followed and we will need to cover for enteric gram-negative, both aerobes and anaerobes. PLAN: 1. Zosyn 3.375 g q.8h to continue. 2. Gentle IV fluid. 3. We will follow on his clinical condition and culture to further adjust medication if needed. Thank you for this consultation. Will follow this patient with you. MARCUSL / IJN: [id number] /
[2020-12-28] MEDS: PIPERACILLIN-TAZOBACTAM 3.375 GM in SODIUM CHLORIDE 0.9% 100 ML IVPB SCH ×3 (00:26→17:12)
[2020-12-28] MEDS: KETOROLAC 15 MG/ML 1 ML VIAL IVP SCH ×4 (00:27→17:46)
[2020-12-28] MEDS: METOCLOPRAMIDE 5 MG/ML 2 ML VIAL IVP SCH ×4 (03:23→21:39)
[2020-12-28] MEDS: HEPARIN SODIUM,PORCINE 5,000 UNIT/ML 1 ML VIAL SQ SCH ×3 (03:23→20:44)
[2020-12-28] MEDS: D5-0.45% NACL WITH KCL 20MEQ/L 1,000 ML IV SCH ×3 (03:23→21:38)
--- NOTE | 2020-12-28 07:38 | P.PN ---
Progress Note - Text Progress Note Date: 12/28/20 ANESTHESIA Post-Op Visit/Pain Management Patient visited at 0720 am on 12/28/2020 He is post-op day 1 S/P sigmoid colectomy and doing well. Thoracic epidural insitu and infusing at 7 ml/hr Patient reporting a VAS of 1-2/10. He is seated upright in bed but has not been up to ambulate. He denies any lower extremity weakness/numbness, pruritis, headache, fever/chills, and back pain. Epidural site dry and without erythema or tenderness. Will continue to follow as indicated.
[2020-12-28] MEDS: NICOTINE 14MG/24HR PATCH TRANSDERM SCH (08:53)
[2020-12-28] MEDS: PANTOPRAZOLE 40 MG/10 ML VIAL IV SCH (08:54)
--- NOTE | 2020-12-28 10:26 | P.PN ---
Subjective Progress Note Date: 12/28/20 Principal diagnosis: Diverticulitis, status post colon resection The patient is postop day 1 sigmoid colon resection with incidental appendectomy for acute on chronic diverticulitis. He has epidural for pain. Complaining of incisional pain if he coughs. He does not want to cough due to the discomfort. Denies nausea or vomiting. Denies shortness of breath Objective - Vital Signs Vital signs: Vital Signs Temp 98.1 F 12/28/20 09:05 Pulse 83 12/28/20 09:05 Resp 18 12/28/20 09:05 BP 125/77 12/28/20 09:05 Pulse Ox 92 L 12/28/20 09:05 Intake & Output 12/27/20 12/28/20 12/28/20 18:59 06:59 18:59 Intake Total 2352.5 1200 Output Total 310 70 25 Balance 2042.5 1130 -25 Weight 86.6 kg Intake: IV 2352.5 Intake, IV Titration 1200 Amount D5-0.45% NaCl with KCl 1200 20Meq/l 1,000 ml @ 100 mls/hr IV .Q10H [facility] Rx#: [id number] Output: Drainage 30 70 25 Right Lower Abdomen 30 70 25 Urine 170 Estimated Blood Loss 110 Other: Voiding Method Indwelling Catheter Indwelling Catheter - Constitutional General appearance: Present: cooperative, no acute distress - Respiratory Respiratory: bilateral: CTA, diminished (slightly at the bases) - Cardiovascular Rhythm: regular - Gastrointestinal Gastrointestinal Comment(s): dc serosang General gastrointestinal: Present: decreased bowel sounds, soft - Genitourinary Genitourinary Comment(s): blood tinged urine, was present after ureteral stents were placeed - Labs Labs: Microbiology - Last 24 Hours (Table) 12/27/20 14:00 Gram Stain - Preliminary Appendix Wound Culture - Preliminary 12/27/20 14:00 Anaerobic Culture - Preliminary Appendix Assessment and Plan (1) Tobacco abuse Current Visit: Yes Status: Acute Code(s): Z72.0 - TOBACCO USE SNOMED Code(s): 645323715 (2) Diverticulitis of intestine with perforation and abscess Current Visit: No Status: Acute Code(s): K57.80 - DVTRCLI OF INTEST, PART UNSP, W PERF AND ABSCESS W/O BLEED SNOMED Code(s): 511912097 Plan: Patient is on antibiotics until we get the report of the cultures. From a surgical standpoint he is doing well. He is encouraged to use his incentive spirometry. Encouraged to try to cough even though it is uncomfortable. We will get him up to a chair. Slowly increase his diet as tolerated.
[2020-12-28 10:30] LABS: Basophils # (A) 0.01 X 10*3/uL (0.00-0.10); Basophils % (A) 0.1 %; Eosinophils # (A) 0.01 X 10*3/uL (0.04-0.35); Eosinophils % (A) 0.1 %; HCT 42.1 % (39.6-50.0); HGB 13.3 g/dL (13.0-17.0); Lymphocytes # (A) 2.17 X 10*3/uL (0.90-5.00); Lymphocytes % (A) 17.8 %; MCH 32.9 pg (27.0-32.0); MCHC 31.6 g/dL (32.0-37.0); MCV 104.2 fL (80.0-97.0); Mean Platelet Volume 10.3 fL (9.5-12.2); Monocytes # (A) 0.71 X 10*3/uL (0.20-1.00); Monocytes % (A) 5.8 %; Neutrophils # (A) 9.24 X 10*3/uL (1.80-7.70); Neutrophils % (A) 75.9 %; Platelet Count 269 X 10*3/uL (140-440); RBC 4.04 X 10*6/uL (4.40-5.60); RDW 12.7 % (11.5-14.5); WBC 12.18 X 10*3/uL (4.50-10.00)
[2020-12-28 11:17] LABS: African American GFR (CKD) 119.9 (60.0-200.0); Anion Gap 5.5 mmol/L (4.00-12.00); Calcium 8.7 mg/dL (8.7-10.3); Carbon Dioxide 29.5 mmol/L (21.6-31.8); Non-African American GFR(CKD) 103.4 (60.0-200.0); Potassium 4.5 mmol/L (3.5-5.5)
--- NOTE | 2020-12-28 16:56 | P.CONS ---
History of Present Illness - Reason for Consult Consult date: 12/28/20 Medical management - Chief Complaint Status post sigmoid colectomy - History of Present Illness Patient is a 50-year-old male with a known history of diverticulitis with perforation admitted to the hospital from 11/21/2020 2 11/27/2020, patient was on antibiotic course via PICC line, currently everyday smoker and history of colovesical fistula was admitted to the hospital for sigmoid colon resection. Patient had cystoscope with bilateral ureteral stent placement to help with uterine identification. No obvious fistula identified on cystoscopy. Patient tolerated the procedure very well. Currently status post sigmoid colon resection with incidental appendectomy for acute on chronic diverticulitis. Postoperatively blood pressure was elevated. Patient is on epidural for pain management. Patient does have abdominal pain she is fairly controlled at this time. No complaints of chest pain or shortness of breath. Patient has been afebrile. Patient does complain of cough and unable to bring out any sputum due to abdominal discomfort with coughing. Does have some nausea but no episodes of vomiting. No headache or dizziness or lightheadedness. Patient is on Donis catheter currently. Laboratory data showed WBC 12.1, hemoglobin 13.3 and platelets 269 BUN 8.0 and creatinine 0.8 Sodium 138 potassium 4.5 and calcium 8.7 Review of Systems Constitutional: Patient denies any fever or chills . No generalized weakness or weight loss. Abdomen: Patient does have abdominal discomfort and nausea. No vomiting. No diarrhea.. Cardiovascular: Patient denies any chest pain or short of breath no palpitations. Respiratory: patient denied any cough is from production. No shortness of breath Neurologic: Patient denied any numbness or tingling headache. Musculoskeletal: Patient denies any complaints of joint swelling or deformity. Skin: Negative Psychiatric: Negative Endocrine: No heat or cold intolerance. No recent weight gain. Genitourinary: No dysuria or hematuria. All other 14 point ROS negative except the above Past Medical History Past Medical History: No Reported History Additional Past Medical History / Comment(s): diverticulitis with perforation in pt 11/21/20-11/27/20. PICC line lt arm with antibiotic History of Any Multi-Drug Resistant Organisms: None Reported Past Surgical History: No Surgical Hx Reported Additional Past Surgical History / Comment(s): tubes in ears Past Anesthesia/Blood Transfusion Reactions: No Reported Reaction Smoking Status: Current every day smoker - Past Family History Brother(s) Family Medical History: Cancer Additional Family Medical History / Comment(s): leukemia Medications and Allergies Home Medications Medication Instructions Recorded Confirmed Type Pantoprazole Sodium [Protonix] 40 mg PO DAILY #30 tablet. 11/27/20 12/22/20 Rx Piperacillin-Tazobactam Iv 4.5 gm IV TID 12/22/20 12/22/20 History Allergies Allergy/AdvReac Type Severity Reaction Status Date / Time pet dander Allergy allergy Uncoded 12/27/20 10:34 symptoms Physical Exam Vitals: Vital Signs Temp Pulse Pulse Pulse Resp BP Pulse Ox 12/28/20 09:05 98.1 F 83 18 125/77 92 L 12/28/20 04:47 97.6 F 98 16 111/70 95 12/27/20 23:00 78 18 115/77 94 L 12/27/20 22:30 76 18 117/74 95 12/27/20 21:30 80 18 120/78 95 12/27/20 21:00 81 18 118/80 94 L 12/27/20 20:30 79 18 130/84 93 L 12/27/20 20:06 91 17 12/27/20 20:00 97.6 F 91 17 111/73 93 L 12/27/20 19:15 71 18 111/73 92 L 12/27/20 18:16 86 16 133/84 94 L 12/27/20 17:29 97.6 F 87 16 146/87 92 L 12/27/20 17:00 85 16 140/81 95 12/27/20 16:26 66 18 154/88 96 12/27/20 16:11 67 16 156/85 96 12/27/20 15:56 73 18 163/95 97 12/27/20 15:41 90 16 147/79 97 12/27/20 15:26 68 16 157/91 99 12/27/20 15:11 97.0 F L 79 16 146/38 99 12/27/20 11:20 72 16 131/76 97 Intake and Output 12/27/20 12/28/20 12/28/20 22:59 06:59 14:59 Intake Total 102.5 1200 Output Total 160 70 25 Balance -57.5 1130 -25 Intake: IV 102.5 Intake, IV Titration 1200 Amount D5-0.45% NaCl with KCl 1200 20Meq/l 1,000 ml @ 100 mls/hr IV .Q10H [facility] Rx#: [id number] Output: Drainage 30 70 25 Right Lower Abdomen 30 70 25 Urine 70 Estimated Blood Loss 60 Other: Voiding Method Indwelling Catheter Indwelling Catheter PHYSICAL EXAMINATION: Patient is lying in the bed comfortably, no acute distress, awake alert and oriented.. HEENT: Normocephalic. Neck is supple. Pupils reactive. Nostrils clear. Oral cavity is moist. Ears reveal no drainage. Neck reveals no JVD, carotid bruits, or thyromegaly. CHEST EXAMINATION: Trachea is central. Symmetrical expansion. Lung tinoco clear to auscultation and percussion. CARDIAC: Normal S1, S2 with no gallops. No murmurs ABDOMEN: Soft. Surgical site is bandaged. Bowel sounds diminished.. No organomegaly. No abdominal bruits. Extremities: reveal no edema. No clubbing or cyanosis Neurologically awake, alert, oriented x3 with well-coordinated movements. No focal deficits noted Skin: No rash or skin lesions. Psychiatric: Coperative. Nonsuicidal Musculoskeletal: No joint swelling or deformity. Normal range of motion. Results CBC & Chem 7: 12/28/20 07:15 12/28/20 07:15 Labs: Abnormal Lab Results - Last 24 Hours (Table) 12/28/20 Range/Units 07:15 WBC 12.18 H (4.50-10.00) X 10*3/uL RBC 4.04 L (4.40-5.60) X 10*6/uL MCV 104.2 H (80.0-97.0) fL MCH 32.9 H (27.0-32.0) pg MCHC 31.6 L (32.0-37.0) g/dL Neutrophils # 9.24 H (1.80-7.70) X 10*3/uL Eosinophils # 0.01 L (0.04-0.35) X 10*3/uL Microbiology - Last 24 Hours (Table) 12/27/20 14:00 Gram Stain - Preliminary Appendix Wound Culture - Preliminary 12/27/20 14:00 Anaerobic Culture - Preliminary Appendix Assessment and Plan Assessment: Status post sigmoid colectomy postoperative day 1 due to recent diverticulitis with perforation and possible colovesicular fistula. Elevated blood pressure likely due to pain. Improved now Ongoing nicotine addiction on daily basis DVT prophylaxis. Plan: Patient will be continued on IV hydration and symptomatic management for nausea. Continue with pain management and currently on epidural. Bowel regimen and encourage ambulation and incentive spirometry. Albuterol breathing treatments when necessary for shortness of breath. Patient will be continued on IV antibiotics and follow-up blood cultures and wound cultures. Smoking cessation has been counseled extensively. will continue to follow with you and further recommendations based on the clinical course. Thank you for your consult. Time with Patient: Greater than 30
[2020-12-28] MEDS: HYDROmorphone 0.5 MG/0.5 ML SYRINGE IVP PRN (17:14)
[2020-12-28] MEDS: ROPIVACAINE 250 MG, HYDROMORPHONE (PF) 5 MG in SODIUM CHLORIDE 0.9% 200 ML EPIDURAL PRN (17:37)
[2020-12-28] MEDS: LACTATED RINGERS 1,000 ML IV SCH (19:03)
[2020-12-28 19:19] LABS: HCT 42.4 % (39.6-50.0); HGB 13.1 g/dL (13.0-17.0); MCH 32.7 pg (27.0-32.0); MCHC 30.9 g/dL (32.0-37.0); MCV 105.7 fL (80.0-97.0); Mean Platelet Volume 10.2 fL (9.5-12.2); Platelet Count 262 X 10*3/uL (140-440); RBC 4.01 X 10*6/uL (4.40-5.60); RDW 12.9 % (11.5-14.5)
[2020-12-28 21:32] LABS: Basophils # (A) 0.01 X 10*3/uL (0.00-0.10); Basophils % (A) 0.1 %; Eosinophils # (A) 0.01 X 10*3/uL (0.04-0.35); Eosinophils % (A) 0.1 %; Lymphocytes % (A) 12.5 %; Monocytes # (A) 0.77 X 10*3/uL (0.20-1.00); Monocytes % (A) 5.7 %; Neutrophils # (A) 11.08 X 10*3/uL (1.80-7.70); Neutrophils % (A) 81.4 %
--- NOTE | 2020-12-28 23:19 | PN ---
PROGRESS NOTE DATE OF SERVICE: 12/28/2020 REASON FOR FOLLOWUP: Complicated diverticulitis with abscess. INTERVAL HISTORY: The patient did have a low-grade fever of 100.2. The patient's overall abdominal pain is controlled. The patient denies having any chest pain or shortness of breath or cough. No nausea, no vomiting. PHYSICAL EXAMINATION: Blood pressure 123/71 with a pulse of 89, temperature 99.4. He is 93% on 2 L nasal cannula. General description is a middle-aged male lying in bed in no distress. RESPIRATORY SYSTEM: Unlabored breathing. Clear to auscultation anteriorly. HEART: S1, S2. Regular rate and rhythm. ABDOMEN: Soft. Mildly distended. No guarding or rigidity. LABS: Hemoglobin is 13.1, white count 13.60. DIAGNOSTIC IMPRESSION AND PLAN: Patient with complicated diverticulitis with an abscess in this patient who is status post sigmoid colectomy and . Abdominal cultures are pending. Covered with Zosyn. White count slightly jumped and will be monitored. Continue with supportive care. MMODL / IJN: [id number] /
[2020-12-29] MEDS: KETOROLAC 15 MG/ML 1 ML VIAL IVP SCH ×3 (00:49→12:20)
[2020-12-29] MEDS: PIPERACILLIN-TAZOBACTAM 3.375 GM in SODIUM CHLORIDE 0.9% 100 ML IVPB SCH ×3 (00:49→16:52)
[2020-12-29] MEDS: HEPARIN SODIUM,PORCINE 5,000 UNIT/ML 1 ML VIAL SQ SCH ×3 (05:08→19:21)
[2020-12-29] MEDS: D5-0.45% NACL WITH KCL 20MEQ/L 1,000 ML IV SCH ×2 (07:58→16:50)
[2020-12-29] MEDS: PANTOPRAZOLE 40 MG/10 ML VIAL IV SCH (07:58)
--- NOTE | 2020-12-29 08:24 | P.PN ---
Progress Note - Text Date: 12/29/2020 Time: 07:08 The patient is status post, sigmoid colectomy, postoperative day number 2 The patient has no complaints of nausea vomiting or headache. The patient does not complain of any lower extremity numbness or weakness. The epidural is running at 7 mL per hour. VAS 510. The epidural rate will be increased to 10 ML's per hour. The epidural will be maintained and adjusted as needed.
[2020-12-29] MEDS: NICOTINE 14MG/24HR PATCH TRANSDERM SCH (10:33)
[2020-12-29] MEDS ORDERED: ALBUTEROL NEBULIZED 2.5 MG/3 ML INHALATION PRN (14:32)
--- NOTE | 2020-12-29 14:35 | P.PN ---
Subjective Progress Note Date: 12/29/20 - Reason for Consult Consult date: 12/28/20 Medical management - Chief Complaint Status post sigmoid colectomy - History of Present Illness Patient is a 50-year-old male with a known history of diverticulitis with p erforation admitted to the hospital from 11/21/2020 2 11/27/2020, patient was on antibiotic course via PICC line, currently everyday smoker and history of colovesical fistula was admitted to the hospital for sigmoid colon resection. Patient had cystoscope with bilateral ureteral stent placement to help with uterine identification. No obvious fistula identified on cystoscopy. Patient tolerated the procedure very well. Currently status post sigmoid colon resection with incidental appendectomy for acute on chronic diverticulitis. Postoperatively blood pressure was elevated. Patient is on epidural for pain management. Patient does have abdominal pain she is fairly controlled at this time. No complaints of chest pain or shortness of breath. Patient has been afebrile. Patient does complain of cough and unable to bring out any sputum due to abdominal discomfort with coughing. Does have some nausea but no episodes of vomiting. No headache or dizziness or lightheadedness. Patient is on Donis catheter currently. Laboratory data showed WBC 12.1, hemoglobin 13.3 and platelets 269 BUN 8.0 and creatinine 0.8 Sodium 138 potassium 4.5 and calcium 8.7 12/29/2020 Patient is seen and evaluated in follow-up currently sitting up in the chair with no acute overnight issues. Patient is tolerating full liquids and denies any gas or bowel movements at this time. Patient is continued on indwelling Donis catheter with urine noted. Continues to be on an epidural pain pump in being controlled by anesthesia. Patient continues to have abdominal discomfort and tenderness especially with position changes and coughing. Incentive spirometer at the bedside and instructed the patient to continue using every hour while awake although patient states it makes him cough further and causes more abdominal discomfort. Patient is maintained on IV antibiotics in the form of Zosyn and will continue at this time. Infectious disease is following and currently awaiting cultures. Review of systems: Constitutional: No reports of fatigue, fever, or chills Cardiovascular: No reports of chest pain or palpitations Respiratory: No reports of shortness of breath, reports occasional cough GI: No reports of nausea, vomiting, or diarrhea, no reports of gas or bowel movement at this time, reports abdominal discomfort at the incision site that worsens with cough and position changes : No reports of dysuria or retention Neurovascular: No reports of weakness or numbness All medications have been reviewed Objective - Vital Signs Vital signs: Vital Signs Temp 98.8 F 12/29/20 13:39 Pulse 96 12/29/20 13:39 Resp 16 12/29/20 13:39 BP 122/71 12/29/20 13:39 Pulse Ox 90 L 12/29/20 13:39 Intake & Output 12/28/20 12/29/20 12/29/20 18:59 06:59 18:59 Intake Total 900.552 6673 101.15 Output Total 1025 270 850 Balance -163.183 930 -748.85 Intake: Intake, IV Titration 647.268 6840 101.15 Amount D5-0.45% NaCl with KCl 1200 20Meq/l 1,000 ml @ 100 mls/hr IV .Q10H [facility] Rx#: [id number] Piperacillin-Tazobactam 3 100 .375 gm In Sodium Chloride 0.9% 100 ml @ 25 mls/hr IVPB Q8HR [facility] Rx# :[id number] Ropivacaine 250 mg 161.817 101.15 Hydromorphone (Pf) 5 mg In Sodium Chloride 0.9% 200 ml @ Per Protocol EPIDURAL .Q0M [facility]N Rx#: [id number] Oral 600 Output: Drainage 25 70 Right Lower Abdomen 25 70 Urine 1000 200 850 Uretheral (Donis) 200 200 850 Other: Voiding Method Urinal Indwelling Catheter Indwelling Catheter - Exam Patient is sitting up in the chair comfortably, no acute distress, awake alert and oriented.. HEENT: Normocephalic. Neck is supple. Pupils reactive. Nostrils clear. Oral cavity is moist. Ears reveal no drainage. Neck reveals no JVD, carotid bruits, or thyromegaly. CHEST EXAMINATION: Trachea is central. Symmetrical expansion. Lung tinoco clear to auscultation and percussion. CARDIAC: Normal S1, S2 with no gallops. No murmurs ABDOMEN: Soft. Tender on palpation. Surgical site is bandaged and bandages dry and intact. Bowel sounds diminished.. No organomegaly. No abdominal bruits. Abdominal binder noted. Extremities: reveal no edema. No clubbing or cyanosis, bilateral SCDs noted Neurologically awake, alert, oriented x3 with well-coordinated movements. No focal deficits noted Skin: No rash or skin lesions. Psychiatric: Cooperative. Non-suicidal Musculoskeletal: No joint swelling or deformity. Normal range of motion. - Labs CBC & Chem 7: 12/28/20 13:04 12/28/20 07:15 Labs: Abnormal Lab Results - Last 24 Hours (Table) 12/28/20 Range/Units 13:04 WBC 13.60 H (4.50-10.00) X 10*3/uL RBC 4.01 L (4.40-5.60) X 10*6/uL MCV 105.7 H (80.0-97.0) fL MCH 32.7 H (27.0-32.0) pg MCHC 30.9 L (32.0-37.0) g/dL Neutrophils # 11.08 H (1.80-7.70) X 10*3/uL Eosinophils # 0.01 L (0.04-0.35) X 10*3/uL Assessment and Plan Assessment: Status post sigmoid colectomy postoperative day 2 due to recent diverticulitis with perforation and possible colovesicular fistula. Elevated blood pressure likely due to pain. Improved now Ongoing nicotine addiction on daily basis, continue with nicotine patch DVT prophylaxis: Subcutaneous heparin GI prophylaxis: Protonix Full code Plan: Patient will be continued on IV antibiotics in the form of Zosyn while awaiting for culture finalization. Infectious disease is following. Patient is maintained on full liquids and tolerating well. Continue with pain management and currently on epidural. Bowel regimen and encourage ambulation and incentive spirometry. No reports of gas and patient denies bowel movements at this time. Albuterol breathing treatments when necessary for shortness of breath. Smoking cessation has been counseled extensively. Will repeat a.m. labs. Further recommendations to follow based on the clinical course. Thank you for this consult and we'll continue to follow along with you during hospitalization.
[2020-12-29] MEDS: ROPIVACAINE 250 MG, HYDROMORPHONE (PF) 5 MG in SODIUM CHLORIDE 0.9% 200 ML EPIDURAL PRN (16:49)
--- NOTE | 2020-12-29 17:03 | P.PN ---
Subjective Progress Note Date: 12/29/20 Principal diagnosis: Diverticulitis, status post colon resection The patient is postop due to sigmoid resection for acute and chronic diverticulitis. He is doing better today than yesterday. The epidural was adjusted. He's tolerating full liquids would like more to eat not passing any flatus not having any nausea or vomiting however. Complaining of penile edema. Catheter is in place. He has been up to the chair Objective - Vital Signs Vital signs: Vital Signs Temp 98.4 F 12/29/20 16:19 Pulse 99 12/29/20 16:19 Resp 20 12/29/20 16:19 BP 167/92 12/29/20 16:19 Pulse Ox 93 L 12/29/20 16:19 Intake & Output 12/28/20 12/29/20 12/29/20 18:59 06:59 18:59 Intake Total 865.609 0730 188.65 Output Total 1025 270 850 Balance -163.183 930 -661.35 Intake: Intake, IV Titration 866.604 4900 188.65 Amount D5-0.45% NaCl with KCl 1200 20Meq/l 1,000 ml @ 100 mls/hr IV .Q10H [facility] Rx#: [id number] Piperacillin-Tazobactam 3 100 .375 gm In Sodium Chloride 0.9% 100 ml @ 25 mls/hr IVPB Q8HR [facility] Rx# :[id number] Ropivacaine 250 mg 161.817 188.65 Hydromorphone (Pf) 5 mg In Sodium Chloride 0.9% 200 ml @ Per Protocol EPIDURAL .Q0M [facility] Rx#: [id number] Oral 600 Output: Drainage 25 70 Right Lower Abdomen 25 70 Urine 1000 200 850 Uretheral (Donis) 200 200 850 Other: Voiding Method Urinal Indwelling Catheter Indwelling Catheter - Constitutional General appearance: Present: cooperative, no acute distress - Respiratory Details: 500-750 MLS on his incentive spirometer Respiratory: bilateral: CTA, diminished (At the bases) - Gastrointestinal General gastrointestinal: Present: decreased bowel sounds, soft Localized gastrointestinal: surgical scar: diffuse (Incision is intact clean and dry, JOSE is serosanguineous) - Labs CBC & Chem 7: 12/28/20 13:04 12/28/20 07:15 Labs: Abnormal Lab Results - Last 24 Hours (Table) 12/28/20 Range/Units 13:04 WBC 13.60 H (4.50-10.00) X 10*3/uL RBC 4.01 L (4.40-5.60) X 10*6/uL MCV 105.7 H (80.0-97.0) fL MCH 32.7 H (27.0-32.0) pg MCHC 30.9 L (32.0-37.0) g/dL Neutrophils # 11.08 H (1.80-7.70) X 10*3/uL Eosinophils # 0.01 L (0.04-0.35) X 10*3/uL Assessment and Plan (1) Tobacco abuse Current Visit: Yes Status: Acute Code(s): Z72.0 - TOBACCO USE SNOMED Co de(s): 994031934 (2) Diverticulitis of intestine with perforation and abscess Current Visit: No Status: Acute Code(s): K57.80 - DVTRCLI OF INTEST, PART UNSP, W PERF AND ABSCESS W/O BLEED SNOMED Code(s): 679220586 Plan: Encouraged incentive spirometry. He does have some penile edema which should improve with time. He can use a towel to support the area. Advance diet as tolerated. Cultures so far have been negative, continue antibiotics pending cultures.
--- NOTE | 2020-12-29 17:28 | PN ---
PROGRESS NOTE DATE OF SERVICE: 12/29/2020 REASON FOR FOLLOWUP: Complicated diverticulitis and abscess. INTERVAL HISTORY: The patient is currently afebrile. The patient is breathing comfortably. The patient's abdominal pain is currently controlled. No chest pain, shortness of breath or cough. No nausea, no vomiting. He did not have any bowel movement and has not passed any gas. PHYSICAL EXAMINATION: Blood pressure 157/92 with a pulse of 99, temperature 98.4. He is 93% on room air. General description is a middle-aged male up in the chair in no distress. RESPIRATORY SYSTEM: Unlabored breathing. Clear to auscultation anteriorly. HEART: S1, S2. Regular rate and rhythm. ABDOMEN: Soft. LABS: No new labs have been obtained today. Abdominal culture is currently pending. DIAGNOSTIC IMPRESSION AND PLAN: Patient with complicated diverticulitis with an abscess in this patient who is status post primary resection and drainage of the abscess along with appendectomy. Patient's abdominal cultures are currently pending. Patient is covered with Zosyn. That will be continued and we will monitor his clinical course closely. MMODL / IJN: [id number] /
[2020-12-29] MEDS: LACTATED RINGERS 1,000 ML IV SCH (17:41)
[2020-12-30] MEDS: PIPERACILLIN-TAZOBACTAM 3.375 GM in SODIUM CHLORIDE 0.9% 100 ML IVPB SCH ×3 (00:27→16:43)
[2020-12-30] MEDS: D5-0.45% NACL WITH KCL 20MEQ/L 1,000 ML IV SCH ×3 (04:38→22:32)
[2020-12-30] MEDS: HEPARIN SODIUM,PORCINE 5,000 UNIT/ML 1 ML VIAL SQ SCH ×3 (04:41→20:26)
[2020-12-30] MEDS: NICOTINE 14MG/24HR PATCH TRANSDERM SCH (08:37)
[2020-12-30] MEDS: PANTOPRAZOLE 40 MG/10 ML VIAL IV SCH (08:38)
[2020-12-30] MEDS: LACTATED RINGERS 1,000 ML IV SCH (08:40)
--- NOTE | 2020-12-30 12:23 | P.PN ---
Subjective Progress Note Date: 12/30/20 Principal diagnosis: Diverticulitis, status post colon resection Patient is status post sigmoid resection. Tolerating a diet. Not using his incentive spirometry well. He is afraid to cough because of discomfort. No nausea or vomiting. He feels rumbling in his abdomen but has not passed gas yet. Objective - Vital Signs Vital signs: Vital Signs Temp 98.1 F 12/30/20 05:00 Pulse 97 12/30/20 05:00 Resp 18 12/30/20 05:00 BP 132/83 12/30/20 05:00 Pulse Ox 92 L 12/30/20 05:00 Intake & Output 12/29/20 12/30/20 12/30/20 18:59 06:59 18:59 Intake Total 968.65 1590 Output Total 850 1200 40 Balance 118.65 390 -40 Intake: Intake, IV Titration 188.65 1000 Amount D5-0.45% NaCl with KCl 800 20Meq/l 1,000 ml @ 100 mls/hr IV .Q10H [facility] Rx#: [id number] Piperacillin-Tazobactam 3 200 .375 gm In Sodium Chloride 0.9% 100 ml @ 25 mls/hr IVPB Q8HR [facility] Rx# :[id number] Ropivacaine 250 mg 188.65 Hydromorphone (Pf) 5 mg In Sodium Chloride 0.9% 200 ml @ Per Protocol EPIDURAL .Q0M [facility] Rx#: [id number] Oral 780 590 Output: Drainage 40 Right Lower Abdomen 40 Urine 850 1200 Uretheral (Donis) 850 600 Other: Voiding Method Indwelling Catheter Indwelling Catheter Indwelling Catheter - Constitutional General appearance: Present: cooperative, no acute distress - Respiratory Respiratory: bilateral: CTA, diminished (At the bases bilaterally) - Cardiovascular Rhythm: regular - Gastrointestinal General gastrointestinal: Present: normal bowel sounds, soft (Softly distended) - Labs CBC & Chem 7: 12/28/20 13:04 12/28/20 07:15 Labs: Microbiology - Last 24 Hours (Table) 12/27/20 14:00 Gram Stain - Preliminary Appendix Wound Culture - Preliminary Yeast species Group D Enterococcus 12/27/20 14:00 Anaerobic Culture - Preliminary Appendix Assessment and Plan (1) Tobacco abuse Current Visit: Yes Status: Acute Code(s): Z72.0 - TOBACCO USE SNOMED Code(s): 610932980 (2) Diverticulitis of intestine with perforation and abscess Current Visit: No Status: Acute Code(s): K57.80 - DVTRCLI OF INTEST, PART UNSP, W PERF AND ABSCESS W/O BLEED SNOMED Code(s): 018671434 (3) Atelectasis Current Visit: Yes Status: Acute Code(s): J98.11 - ATELECTASIS SNOMED Code(s): 08444623 Plan: The patient is doing approximately 750 MLS on his incentive spirometry today. We'll discontinue the epidural after this bag is finished. Switch him over to oral and IV pain medication. Remove the catheter later today, once the epidural was removed. Encouraged incentive spirometry. Encourage ambulation once the epidural was removed. Progressing slowly. The culture did show some group D strep and yeast. Followed by infectious diseases
[2020-12-30 12:33] LABS: African American GFR (CKD) 134.9 (60.0-200.0); Blood Urea Nitrogen <5.0 mg/dL (9.0-27.0); Carbon Dioxide 27.8 mmol/L (21.6-31.8); Chloride 101 mmol/L (96-109); Glucose 123 mg/dL (70-110); Non-African American GFR(CKD) 116.4 (60.0-200.0); Potassium 4.5 mmol/L (3.5-5.5); Sodium 134 mmol/L (135-145)
[2020-12-30 13:09] LABS: Basophils # (A) 0.02 X 10*3/uL (0.00-0.10); Basophils % (A) 0.2 %; Eosinophils # (A) 0.05 X 10*3/uL (0.04-0.35); Eosinophils % (A) 0.5 %; HCT 36.1 % (39.6-50.0); Lymphocytes # (A) 1.75 X 10*3/uL (0.90-5.00); Lymphocytes % (A) 15.8 %; MCH 33.3 pg (27.0-32.0); MCHC 33.2 g/dL (32.0-37.0); MCV 100.3 fL (80.0-97.0); Monocytes # (A) 0.88 X 10*3/uL (0.20-1.00); Neutrophils # (A) 8.32 X 10*3/uL (1.80-7.70); Neutrophils % (A) 75.1 %; Platelet Count 207 X 10*3/uL (140-440); RDW 12.2 % (11.5-14.5); WBC 11.06 X 10*3/uL (4.50-10.00)
[2020-12-30] MEDS: ROPIVACAINE 250 MG, HYDROMORPHONE (PF) 5 MG in SODIUM CHLORIDE 0.9% 200 ML EPIDURAL PRN (17:11)
--- NOTE | 2020-12-30 21:07 | P.PN ---
Progress Note - Text 12/30/20 1511 Postop day #[id number] male status post sigmoid resection by Dr. Giron. Patient has an epidural catheter for postop pain control with the solution running at 10 mL an hour with a VAS of 1 at rest. Patient has no motor or sensory deficits. Patient is uncomfortable at movement and coughing. Patient requested the epidural to be continued for another day. Plan to DC the epidural in the morning and the nurse notified of the plan
[2020-12-30] MEDS: FLUCONAZOLE 100 MG TAB PO SCH (22:34)
--- NOTE | 2020-12-30 23:52 | PN ---
PROGRESS NOTE DATE OF SERVICE: 12/30/2020. REASON FOR FOLLOW UP: Complicated diverticulitis. INTERVAL HISTORY: The patient is currently afebrile. He is breathing comfortably. The abdominal pain is currently controlled. No chest pain, shortness of breath, or cough. Did not have any bowel movement. PHYSICAL EXAMINATION: Blood pressure 137/86, pulse of 91, temperature 98.6. He is 90% on 3 L nasal cannula. General description: A middle-aged male up in the chair in no distress. Respiratory system: Unlabored breathing. Clear to auscultation anteriorly. HEART: S1, S2. Regular rate and rhythm. ABDOMEN: Soft, mildly tender. No guarding. No rigidity. LABS: Hemoglobin is 12.7, white count 11.7, creatinine 0.5. Abdominal culture with Enterococcus species. DIAGNOSTIC IMPRESSION AND PLAN: Patient with complicated diverticulitis status post resection and primary anastomosis in this patient culture now showing Enterococcus and this patient is covered with Zosyn. We will add Diflucan and monitor his cultures and clinical course closely. Continue supportive care. MMODL / IJN: [id number] /
[2020-12-31] MEDS: PIPERACILLIN-TAZOBACTAM 3.375 GM in SODIUM CHLORIDE 0.9% 100 ML IVPB SCH ×3 (00:28→16:47)
[2020-12-31] MEDS: HEPARIN SODIUM,PORCINE 5,000 UNIT/ML 1 ML VIAL SQ SCH ×3 (04:50→20:08)
[2020-12-31] MEDS: PANTOPRAZOLE 40 MG/10 ML VIAL IV SCH (08:26)
[2020-12-31] MEDS: NICOTINE 14MG/24HR PATCH TRANSDERM SCH (08:26)
[2020-12-31] MEDS: FLUCONAZOLE 100 MG TAB PO SCH (08:26)
[2020-12-31] MEDS: LACTATED RINGERS 1,000 ML IV SCH (08:28)
[2020-12-31 10:01] LABS: Basophils # (A) 0.01 X 10*3/uL (0.00-0.10); Basophils % (A) 0.1 %; Eosinophils # (A) 0.24 X 10*3/uL (0.04-0.35); Eosinophils % (A) 2.7 %; HCT 37.1 % (39.6-50.0); HGB 12.1 g/dL (13.0-17.0); Lymphocytes # (A) 2.22 X 10*3/uL (0.90-5.00); Lymphocytes % (A) 24.9 %; MCHC 32.6 g/dL (32.0-37.0); MCV 101.1 fL (80.0-97.0); Mean Platelet Volume 10.9 fL (9.5-12.2); Monocytes # (A) 0.93 X 10*3/uL (0.20-1.00); Monocytes % (A) 10.4 %; Neutrophils # (A) 5.48 X 10*3/uL (1.80-7.70); Neutrophils % (A) 61.7 %; Platelet Count 237 X 10*3/uL (140-440); RBC 3.67 X 10*6/uL (4.40-5.60); RDW 12.4 % (11.5-14.5)
[2020-12-31 10:12] LABS: African American GFR (CKD) 134.9 (60.0-200.0); Albumin 3.3 g/dL (3.80-4.90); Albumin/Globulin Ratio 1.57 (1.60-3.17); Anion Gap 4.6 mmol/L (4.00-12.00); BUN/Creat Ratio 8.33 Ratio (12.00-20.00); Calcium 8.2 mg/dL (8.7-10.3); Carbon Dioxide 27.4 mmol/L (21.6-31.8); Globulin 2.1 g/dL (1.6-3.3); Non-African American GFR(CKD) 116.4 (60.0-200.0); Potassium 4.4 mmol/L (3.5-5.5); Total Bilirubin 0.5 mg/dL (0.2-1.2); Total Protein 5.4 g/dL (6.2-8.2)
[2020-12-31] MEDS: D5-0.45% NACL WITH KCL 20MEQ/L 1,000 ML IV SCH (12:30)
--- NOTE | 2020-12-31 13:04 | P.PN ---
Subjective Progress Note Date: 12/31/20 Principal diagnosis: Diverticulitis, status post colon resection The patient is seen on rounds. Not passing flatus but he feels like something will pass at any time. No nausea or vomiting. Complaining is not sleeping at night but nurses report he sleeps frequently through the day he was seen by anesthesiology epidural will be removed today. Objective - Vital Signs Vital signs: Vital Signs Temp 98.4 F 12/31/20 05:00 Pulse 90 12/31/20 05:00 Resp 17 12/31/20 05:00 BP 131/87 12/31/20 05:00 Pulse Ox 90 L 12/31/20 05:00 Intake & Output 12/30/20 12/31/20 12/31/20 18:59 06:59 18:59 Intake Total 243.667 Output Total 915 4090 Balance -671.333 -4090 Intake: Intake, IV Titration 243.667 Amount Ropivacaine 250 mg 243.667 Hydromorphone (Pf) 5 mg In Sodium Chloride 0.9% 200 ml @ Per Protocol EPIDURAL .Q0M PRN Rx#: [id number] Output: Drainage 40 90 Right Lower Abdomen 40 90 Urine 875 4000 Uretheral (Donis) 2000 Other: Voiding Method Indwelling Catheter Indwelling Catheter Indwelling Catheter - Constitutional General appearance: Present: cooperative, no acute distress - Respiratory Respiratory: bilateral: diminished (At the bases) - Cardiovascular Rhythm: regular - Gastrointestinal General gastrointestinal: Present: normal bowel sounds, soft (Softly distended) Localized gastrointestinal: surgical scar: diffuse (Incision has some erythema and drainage) - Labs CBC & Chem 7: 12/31/20 05:42 12/31/20 05:42 Labs: Abnormal Lab Results - Last 24 Hours (Table) 12/30/20 12/31/20 12/31/20 Range/Units 07:03 05:42 05:42 WBC 11.06 H (4.50-10.00) X 10*3/uL RBC 3.60 L 3.67 L (4.40-5.60) X 10*6/uL Hgb 12.0 L 12.1 L (13.0-17.0) g/dL Hct 36.1 L 37.1 L (39.6-50.0) % MCV 100.3 H 101.1 H (80.0-97.0) fL MCH 33.3 H 33.0 H (27.0-32.0) pg Neutrophils # 8.32 H (1.80-7.70) X 10*3/uL Sodium 134 L (135-145) mmol/L BUN 5.0 L (9.0-27.0) mg/dL BUN/Creatinine Ratio 8.33 L (12.00-20.00) Ratio Glucose 114 H (70-110) mg/dL Calcium 8.2 L (8.7-10.3) mg/dL AST 36 H (14-35) U/L Total Protein 5.4 L (6.2-8.2) g/dL Albumin 3.30 L (3.80-4.90) g/dL Albumin/Globulin Ratio 1.57 L (1.60-3.17) g/dL Microbiology - Last 24 Hours (Table) 12/27/20 14:00 Gram Stain - Final Appendix Wound Culture - Final Lauren sp,not albicans/galbr Enterococcus faecium VRE Assessment and Plan (1) Tobacco abuse Current Visit: Yes Status: Acute Code(s): Z72.0 - TOBACCO USE SNOMED Code(s): 625778241 (2) Diverticulitis of intestine with perforation and abscess Current Visit: No Status: Acute Code(s): K57.80 - DVTRCLI OF INTEST, PART UNSP, W PERF AND ABSCESS W/O BLEED SNOMED Code(s): 413395454 (3) Atelectasis Current Visit: Yes Status: Acute Code(s): J98.11 - ATELECTASIS SNOMED Code(s): 86896796 Plan: Epidural will be removed today. He'll have IV or oral pain medication. I reiterated the importance of using the incentive spirometry.(He still using this poorly.) Needs to get up and ambulate in the [place] at least 3-4 times today dural his one of to help with ileus and his atelectasis. Questions were encouraged and answered.
[2020-12-31] MEDS: HYDROmorphone 0.5 MG/0.5 ML SYRINGE IVP PRN ×2 (14:44→18:33)
[2020-12-31] MEDS: HYDROcodone/APAP 7.5-325MG 1 EACH TAB PO PRN ×2 (14:45→20:08)
[2020-12-31] MEDS: DAPTOmycin 500 MG in SODIUM CHLORIDE 0.9% 50 ML IVPB SCH (14:56)
--- NOTE | 2020-12-31 16:35 | P.PN ---
Progress Note - Text 12/31/20 0875 50-year-old male status post exploratory lap by Dr. Giron. She has an epidural catheter for postop pain control with the solution running at 10 mL an hour. Patient has a VAS of 1 with no motor or sensory deficits. Assessment plan DC the epidural nurse was informed
--- NOTE | 2020-12-31 22:55 | PN ---
PROGRESS NOTE DATE OF SERVICE: 12/31/2020 REASON FOR FOLLOWUP: Complicated diverticulitis, abdominal abscess. INTERVAL HISTORY: The patient is currently afebrile. Has been complaining of more abdominal pain. Apparently, the patient did have some stitches removed. Did have slight drainage. Denies having any chest pain. No shortness of breath or cough. PHYSICAL EXAMINATION: Blood pressure 160/96, pulse of 83, temperature 97.9. He is 92% on room air. General description is a middle-aged male lying in bed in no distress. Respiratory system: Unlabored breathing, clear to auscultation anteriorly. HEART: S1, S2. Regular rate and rhythm. ABDOMEN is soft. No guarding. No rigidity. LABS: Hemoglobin is 12.1, white count 8.9, BUN of 5, creatinine 0.6. DIAGNOSTIC IMPRESSION AND PLAN: Patient with complicated diverticulitis, status post primary resection, appendectomy, abdominal culture positive for Lauren species, not albicans; and VRE. We shall add daptomycin or add Eraxis to cover for the non albicans glabrata and monitor clinical course closely. Continue supportive care. MMODL / IJN: [id number] /
[2021-01-01] MEDS: PIPERACILLIN-TAZOBACTAM 3.375 GM in SODIUM CHLORIDE 0.9% 100 ML IVPB SCH ×3 (00:09→16:25)
[2021-01-01] MEDS: HYDROmorphone 0.5 MG/0.5 ML SYRINGE IVP PRN ×5 (00:54→19:03)
--- NOTE | 2021-01-01 02:26 | P.PN ---
Subjective Progress Note Date: 12/30/20 Principal diagnosis: Status post sigmoid colectomy Patient is a 50-year-old male with a known history of diverticulitis with perforation admitted to the hospital from 11/21/2020 2 11/27/2020, patient was on antibiotic course via PICC line, currently everyday smoker and history of colovesical fistula was admitted to the hospital for sigmoid colon resection. Patient had cystoscope with bilateral ureteral stent placement to help with uterine identification. No obvious fistula identified on cystoscopy. Patient tolerated the procedure very well. Currently status post sigmoid colon resection with incidental appendectomy for acute on chronic diverticulitis. Postoperatively blood pressure was elevated. Patient is on epidural for pain management. Patient does have abdominal pain she is fairly controlled at this time. No complaints of chest pain or shortness of breath. Patient has been afebrile. Patient does complain of cough and unable to bring out any sputum due to a bdominal discomfort with coughing. Does have some nausea but no episodes of vomiting. No headache or dizziness or lightheadedness. Patient is on Donis catheter currently. Laboratory data showed WBC 12.1, hemoglobin 13.3 and platelets 269 BUN 8.0 and creatinine 0.8 Sodium 138 potassium 4.5 and calcium 8.7 12/29/2020 Patient is seen and evaluated in follow-up currently sitting up in the chair wit h no acute overnight issues. Patient is tolerating full liquids and denies any gas or bowel movements at this time. Patient is continued on indwelling Donis catheter with urine noted. Continues to be on an epidural pain pump in being controlled by anesthesia. Patient continues to have abdominal discomfort and tenderness especially with position changes and coughing. Incentive spirometer at the bedside and instructed the patient to continue using every hour while awake although patient states it makes him cough further and causes more abdominal discomfort. Patient is maintained on IV antibiotics in the form of Zosyn and will continue at this time. Infectious disease is following and cu rrently awaiting cultures. 12/30/2020 Patient is currently sitting in a chair. Complains of increasing tumbling sounds overnigh and no bowel night at. Continue incentive spirometry. Encouraged with increased ambulation.. No nausea vomiting. No chest pain or shortness of breath. Patient is being continued on IV medications. Fluid culture showed Lauren species and Enterococcus patient. Antibiotics in the form of Zosyn. ID is on board. Review of systems: Constitutional: No reports of fatigue, fever, or chills Cardiovascular: No reports of chest pain or palpitations Respiratory: No reports of shortness of breath, reports occasional cough GI: No reports of nausea, vomiting, or diarrhea, no reports of gas or bowel movement at this time, reports abdominal discomfort at the incision site that worsens with cough and position changes : No reports of dysuria or retention Neurovascular: No reports of weakness or numbness All medications have been reviewed Objective - Vital Signs Vital signs: Vital Signs Temp 98.1 F 12/30/20 05:00 Pulse 97 12/30/20 05:00 Resp 18 12/30/20 05:00 BP 132/83 12/30/20 05:00 Pulse Ox 92 L 12/30/20 05:00 Intake & Output 12/29/20 12/30/20 12/30/20 18:59 06:59 18:59 Intake Total 968.65 1590 Output Total 850 1200 40 Balance 118.65 390 -40 Intake: Intake, IV Titration 188.65 1000 Amount D5-0.45% NaCl with KCl 800 20Meq/l 1,000 ml @ 100 mls/hr IV .Q10H [facility] Rx#: [id number] Piperacillin-Tazobactam 3 200 .375 gm In Sodium Chloride 0.9% 100 ml @ 25 mls/hr IVPB Q8HR [facility] Rx# :[id number] Ropivacaine 250 mg 188.65 Hydromorphone (Pf) 5 mg In Sodium Chloride 0.9% 200 ml @ Per Protocol EPIDURAL .Q0M PRN Rx#: [id number] Oral 780 590 Output: Drainage 40 Right Lower Abdomen 40 Urine 850 1200 Uretheral (Donis) 850 600 Other: Voiding Method Indwelling Catheter Indwelling Catheter Indwelling Catheter - Exam - Exam Patient is sitting up in the chair comfortably, no acute distress, awake alert and oriented.. HEENT: Normocephalic. Neck is supple. Pupils reactive. Nostrils clear. Oral cavity is moist. Ears reveal no drainage. Neck reveals no JVD, carotid bruits, or thyromegaly. CHEST EXAMINATION: Trachea is central. Symmetrical expansion. Lung tinoco clear to auscultation and percussion. CARDIAC: Normal S1, S2 with no gallops. No murmurs ABDOMEN: Soft. Tender on palpation. Surgical site is bandaged and bandages dry and intact. Bowel sounds diminished.. No organomegaly. No abdominal bruits. Abdominal binder noted. Extremities: reveal no edema. No clubbing or cyanosis, bilateral SCDs noted Neurologically awake, alert, oriented x3 with well-coordinated movements. No focal deficits noted Skin: No rash or skin lesions. Psychiatric: Cooperative. Non-suicidal Musculoskeletal: No joint swelling or deformity. Normal range of motion. - Labs CBC & Chem 7: 12/31/20 05:42 12/31/20 05:42 Labs: Microbiology - Last 24 Hours (Table) 12/27/20 14:00 Gram Stain - Preliminary Appendix Wound Culture - Preliminary Yeast species Group D Enterococcus 12/27/20 14:00 Anaerobic Culture - Preliminary Appendix Assessment and Plan Assessment: Status post sigmoid colectomy postoperative day 3 due to recent diverticulitis with perforation and possible colovesicular fistula. Elevated blood pressure likely due to pain. Improved now Ongoing nicotine addiction on daily basis, continue with nicotine patch DVT prophylaxis: Subcutaneous heparin GI prophylaxis: Protonix Full code Plan: Patient will be continued on IV antibiotics in the form of Zosyn while awaiting for culture finalization. Infectious disease is following. Patient is maintained on full liquids and tolerating well. Continue with pain management and currently on epidural. Bowel regimen and encourage ambulation and incentive spirometry. No reports of gas and patient denies bowel movements at this time. Albuterol breathing treatments when necessary for shortness of breath. Smoking cessation has been counseled extensively. Will repeat a.m. labs. Further recommendations to follow based on the clinical course. Thank you for this consult and we'll continue to follow along with you during hospitalization. Time with Patient: Greater than 30
--- NOTE | 2021-01-01 02:30 | P.PN ---
Subjective Progress Note Date: 12/31/20 Principal diagnosis: Status post sigmoid colectomy Patient is a 50-year-old male with a known history of diverticulitis with perforation admitted to the hospital from 11/21/2020 2 11/27/2020, patient was on antibiotic course via PICC line, currently everyday smoker and history of colovesical fistula was admitted to the hospital for sigmoid colon resection. Patient had cystoscope with bilateral ureteral stent placement to help with uterine identification. No obvious fistula identified on cystoscopy. Patient tolerated the procedure very well. Currently status post sigmoid colon resection with incidental appendectomy for acute on chronic diverticulitis. Postoperatively blood pressure was elevated. Patient is on epidural for pain management. Patient does have abdominal pain she is fairly controlled at this time. No complaints of chest pain or shortness of breath. Patient has been afebrile. Patient does complain of cough and unable to bring out any sputum due to a bdominal discomfort with coughing. Does have some nausea but no episodes of vomiting. No headache or dizziness or lightheadedness. Patient is on Donis catheter currently. Laboratory data showed WBC 12.1, hemoglobin 13.3 and platelets 269 BUN 8.0 and creatinine 0.8 Sodium 138 potassium 4.5 and calcium 8.7 12/29/2020 Patient is seen and evaluated in follow-up currently sitting up in the chair wit h no acute overnight issues. Patient is tolerating full liquids and denies any gas or bowel movements at this time. Patient is continued on indwelling Donis catheter with urine noted. Continues to be on an epidural pain pump in being controlled by anesthesia. Patient continues to have abdominal discomfort and tenderness especially with position changes and coughing. Incentive spirometer at the bedside and instructed the patient to continue using every hour while awake although patient states it makes him cough further and causes more abdominal discomfort. Patient is maintained on IV antibiotics in the form of Zosyn and will continue at this time. Infectious disease is following and cu rrently awaiting cultures. 12/30/2020 Patient is currently sitting in a chair. Complains of increasing tumbling sounds overnigh and no bowel night at. Continue incentive spirometry. Encouraged with increased ambulation.. No nausea vomiting. No chest pain or shortness of breath. Patient is being continued on IV medications. Fluid culture showed Lauren species and Enterococcus patient. Antibiotics in the form of Zosyn. ID is on board. 12/31/2020 Patient is currently lying in the bed comfortably. No nausea or vomiting. Rambling noise in the abdominal is better today. Patient has not passed any flatus yet.. Epidural anesthesia is being removed today. Abdominal pain is better. No fever no chills. Laboratory data showed WBC 8.9, hemoglobin 12.1 and platelets 237 sodium 137 potassium 4.4 BUN 5 and creatinine 0.6 Review of systems: Constitutional: No reports of fatigue, fever, or chills Cardiovascular: No reports of chest pain or palpitations Respiratory: No reports of shortness of breath, reports occasional cough GI: No reports of nausea, vomiting, or diarrhea, no reports of gas or bowel movement at this time, reports abdominal discomfort at the incision site that worsens with cough and position changes : No reports of dysuria or retention Neurovascular: No reports of weakness or numbness All medications have been reviewed Objective - Vital Signs Vital signs: Vital Signs Temp 98.1 F 12/31/20 13:00 Pulse 94 12/31/20 13:00 Resp 20 12/31/20 13:00 BP 157/92 12/31/20 13:00 Pulse Ox 96 12/31/20 17:28 Intake & Output 12/30/20 12/31/20 12/31/20 18:59 06:59 18:59 Intake Total 243.667 150 Output Total 915 4090 1255 Balance -671.333 -4090 -1105 Intake: Intake, IV Titration 243.667 150 Amount DAPTOmycin 500 mg In 50 Sodium Chloride 0.9% 50 ml @ 100 mls/hr IVPB Q24H [facility] Rx#:[id number] Piperacillin-Tazobactam 3 100 .375 gm In Sodium Chloride 0.9% 100 ml @ 25 mls/hr IVPB Q8HR [facility] Rx# :[id number] Ropivacaine 250 mg 243.667 Hydromorphone (Pf) 5 mg In Sodium Chloride 0.9% 200 ml @ Per Protocol EPIDURAL .Q0M PRN Rx#: [id number] Output: Drainage 40 90 80 Right Lower Abdomen 40 90 80 Urine 875 4000 1175 Uretheral (Donis) 2000 Other: Voiding Method Indwelling Catheter Indwelling Catheter Indwelling Catheter - Exam - Exam Patient is sitting up in the chair comfortably, no acute distress, awake alert and oriented.. HEENT: Normocephalic. Neck is supple. Pupils reactive. Nostrils clear. Oral cavity is moist. Ears reveal no drainage. Neck reveals no JVD, carotid bruits, or thyromegaly. CHEST EXAMINATION: Trachea is central. Symmetrical expansion. Lung tinoco clear to auscultation and percussion. CARDIAC: Normal S1, S2 with no gallops. No murmurs ABDOMEN: Soft. Tender on palpation. Surgical site is bandaged and bandages dry and intact. Bowel sounds active.. No organomegaly. No abdominal bruits. Abdominal binder noted. Extremities: reveal no edema. No clubbing or cyanosis, bilateral SCDs noted Neurologically awake, alert, oriented x3 with well-coordinated movements. No focal deficits noted Skin: No rash or skin lesions. Psychiatric: Cooperative. Non-suicidal Musculoskeletal: No joint swelling or deformity. Normal range of motion. - Labs CBC & Chem 7: 12/31/20 05:42 12/31/20 05:42 Labs: Abnormal Lab Results - Last 24 Hours (Table) 12/31/20 12/31/20 Range/Units 05:42 05:42 RBC 3.67 L (4.40-5.60) X 10*6/uL Hgb 12.1 L (13.0-17.0) g/dL Hct 37.1 L (39.6-50.0) % MCV 101.1 H (80.0-97.0) fL MCH 33.0 H (27.0-32.0) pg Sodium 134 L (135-145) mmol/L BUN 5.0 L (9.0-27.0) mg/dL BUN/Creatinine Ratio 8.33 L (12.00-20.00) Ratio Glucose 114 H (70-110) mg/dL Calcium 8.2 L (8.7-10.3) mg/dL AST 36 H (14-35) U/L Total Protein 5.4 L (6.2-8.2) g/dL Albumin 3.30 L (3.80-4.90) g/dL Albumin/Globulin Ratio 1.57 L (1.60-3.17) g/dL Microbiology - Last 24 Hours (Table) 12/27/20 14:00 Gram Stain - Final Appendix Wound Culture - Final Lauren sp,not albicans/galbr Enterococcus faecium VRE Assessment and Plan Assessment: Status post sigmoid colectomy postoperative day 4 due to recent diverticulitis with perforation and possible colovesicular fistula. Elevated blood pressure likely due to pain. Improved now Ongoing nicotine addiction on daily basis, continue with nicotine patch DVT prophylaxis: Subcutaneous heparin GI prophylaxis: Protonix Full code Plan: Patient will be continued on IV antibiotics in the form of Zosyn. cx showed enterococcus and lauren sp. Infectious disease is following. Patient is maintained on full liquids and tolerating well. Continue with pain management and currently on epidural. dCed today Bowel regimen and encourage ambulation and incentive spirometry. No reports of gas and patient denies bowel movements at this time. Albuterol breathing treatments when necessary for shortness of breath. Smoking cessation has been counseled extensively. Further recommendations to follow based on the clinical course. Thank you for this consult and we'll continue to follow along with you during hospitalization. Time with Patient: Greater than 30
[2021-01-01] MEDS: HYDROcodone/APAP 7.5-325MG 1 EACH TAB PO PRN ×4 (02:37→21:28)
[2021-01-01] MEDS: KETOROLAC 15 MG/ML 1 ML VIAL IVP PRN ×3 (02:39→19:05)
[2021-01-01] MEDS: HEPARIN SODIUM,PORCINE 5,000 UNIT/ML 1 ML VIAL SQ SCH ×3 (04:41→20:33)
[2021-01-01] MEDS: FLUCONAZOLE 100 MG TAB PO SCH (08:35)
[2021-01-01] MEDS: PANTOPRAZOLE 40 MG/10 ML VIAL IV SCH (08:35)
[2021-01-01] MEDS: NICOTINE 14MG/24HR PATCH TRANSDERM SCH (08:50)
--- NOTE | 2021-01-01 09:08 | P.PN ---
Subjective Progress Note Date: 01/01/21 Principal diagnosis: Diverticulitis, status post colon resection The epidural and bain were removed yesterday. He is voiding well. Complaining of incisional pain, there was a delay in receiving pain medication due to another patient being unstable. Has ambulated once in the [place]. Passed flatus and a small amount of stool. Denies nausea or vomiting, tolerating a diet Objective - Vital Signs Vital signs: Vital Signs Temp 97.5 F L 01/01/21 05:00 Pulse 85 01/01/21 05:00 Resp 18 01/01/21 05:00 BP 167/93 01/01/21 05:00 Pulse Ox 97 01/01/21 05:00 Intake & Output 12/31/20 01/01/21 01/01/21 18:59 06:59 18:59 Intake Total 150 200 Output Total 1255 830 Balance -5240 -954 Intake: Intake, IV Titration 150 200 Amount DAPTOmycin 500 mg In 50 Sodium Chloride 0.9% 50 ml @ 100 mls/hr IVPB Q24H [facility] Rx#:[id number] Piperacillin-Tazobactam 3 100 200 .375 gm In Sodium Chloride 0.9% 100 ml @ 25 mls/hr IVPB Q8HR [facility] Rx# :[id number] Output: Drainage 80 30 Right Lower Abdomen 80 30 Urine 1175 800 Other: Voiding Method Indwelling Catheter Indwelling Catheter # Voids 1 - Constitutional Constitutional Comment(s): appears uncomfortable - Respiratory Details: slightly tachypnic Respiratory: bilateral: diminished (at the bases) - Gastrointestinal General gastrointestinal: Present: normal bowel sounds, soft (softly distended, improved from yesterday) Localized gastrointestinal: surgical scar: diffuse (incision reddened with some drainage. The skin under the umbilicus is opened with a sterile q-tip. There is some serosang drainage that is slightly cloudy.) - Labs CBC & Chem 7: 12/31/20 05:42 12/31/20 05:42 Labs: Abnormal Lab Results - Last 24 Hours (Table) 12/31/20 12/31/20 Range/Units 05:42 05:42 RBC 3.67 L (4.40-5.60) X 10*6/uL Hgb 12.1 L (13.0-17.0) g/dL Hct 37.1 L (39.6-50.0) % MCV 101.1 H (80.0-97.0) fL MCH 33.0 H (27.0-32.0) pg Sodium 134 L (135-145) mmol/L BUN 5.0 L (9.0-27.0) mg/dL BUN/Creatinine Ratio 8.33 L (12.00-20.00) Ratio Glucose 114 H (70-110) mg/dL Calcium 8.2 L (8.7-10.3) mg/dL AST 36 H (14-35) U/L Total Protein 5.4 L (6.2-8.2) g/dL Albumin 3.30 L (3.80-4.90) g/dL Albumin/Globulin Ratio 1.57 L (1.60-3.17) g/dL Microbiology - Last 24 Hours (Table) 12/27/20 14:00 Anaerobic Culture - Final Appendix 12/27/20 14:00 Gram Stain - Final Appendix Wound Culture - Final Lauren sp,not albicans/galbr Enterococcus faecium VRE Assessment and Plan (1) Tobacco abuse Current Visit: Yes Status: Acute Code(s): Z72.0 - TOBACCO USE SNOMED Code(s): 798698235 (2) Diverticulitis of intestine with perforation and abscess Current Visit: No Status: Acute Code(s): K57.80 - DVTRCLI OF INTEST, PART UNSP, W PERF AND ABSCESS W/O BLEED SNOMED Code(s): 634521768 (3) Atelectasis Current Visit: Yes Status: Acute Code(s): J98.11 - ATELECTASIS SNOMED Code(s): 80567653 Plan: Discussed with nursing at bedside. The wound will be packed with aquacel ag rope. Encourage incentive spirometry and ambulation. Pain should lessen now that he is starting to pass flatus. Progressing slowly
[2021-01-01] MEDS ORDERED: ANIDULAFUNGIN 200 MG in SODIUM CHLORIDE 0.9% 200 ML IVPB ONE (11:11)
--- NOTE | 2021-01-01 14:00 | P.PN ---
Subjective Progress Note Date: 01/01/21 - Reason for Consult Consult date: 12/28/20 Medical management - Chief Complaint Status post sigmoid colectomy - History of Present Illness Patient is a 50-year-old male with a known history of diverticulitis with p erforation admitted to the hospital from 11/21/2020 2 11/27/2020, patient was on antibiotic course via PICC line, currently everyday smoker and history of colovesical fistula was admitted to the hospital for sigmoid colon resection. Patient had cystoscope with bilateral ureteral stent placement to help with uterine identification. No obvious fistula identified on cystoscopy. Patient tolerated the procedure very well. Currently status post sigmoid colon resection with incidental appendectomy for acute on chronic diverticulitis. Postoperatively blood pressure was elevated. Patient is on epidural for pain management. Patient does have abdominal pain she is fairly controlled at this time. No complaints of chest pain or shortness of breath. Patient has been afebrile. Patient does complain of cough and unable to bring out any sputum due to abdominal discomfort with coughing. Does have some nausea but no episodes of vomiting. No headache or dizziness or lightheadedness. Patient is on Donis catheter currently. Laboratory data showed WBC 12.1, hemoglobin 13.3 and platelets 269 BUN 8.0 and creatinine 0.8 Sodium 138 potassium 4.5 and calcium 8.7 12/29/2020 Patient is seen and evaluated in follow-up currently sitting up in the chair with no acute overnight issues. Patient is tolerating full liquids and denies any gas or bowel movements at this time. Patient is continued on indwelling Donis catheter with urine noted. Continues to be on an epidural pain pump in being controlled by anesthesia. Patient continues to have abdominal discomfort and tenderness especially with position changes and coughing. Incentive spirometer at the bedside and instructed the patient to continue using every hour while awake although patient states it makes him cough further and causes more abdominal discomfort. Patient is maintained on IV antibiotics in the form of Zosyn and will continue at this time. Infectious disease is following and currently awaiting cultures. 12/30/2020 Patient is currently sitting in a chair. Complains of increasing tumbling sounds overnigh and no bowel night at. Continue incentive spirometry. Encouraged with increased ambulation.. No nausea vomiting. No chest pain or shortness of breath. Patient is being continued on IV medications. Fluid culture showed Lauren species and Enterococcus patient. Antibiotics in the form of Zosyn. ID is on board. 12/31/2020 Patient is currently lying in the bed comfortably. No nausea or vomiting. Rambling noise in the abdominal is better today. Patient has not passed any flatus yet.. Epidural anesthesia is being removed today. Abdominal pain is better. No fever no chills. Laboratory data showed WBC 8.9, hemoglobin 12.1 and platelets 237 sodium 137 potassium 4.4 BUN 5 and creatinine 0.6 01/01/2021 Patient is seen this morning currently sitting up in the bed continues to have pain in the lower abdominal region. Patient recently had epidural pump for pain removed and states his pain is hard to control at this time. Patient is reportedly passing gas and has had multiple bowel movements. Patient recently had some casie from surgery removed and surgical site and dressing is dry and intact. Patient to continue with abdominal binder while out of bed. White blood count is 8.9 today and hemoglobin is stable at 12.1. Sodium is 134, potassium is 4.4, creatinine is 0.6. Patient is maintained on IV antibiotics in the form of daptomycin and Zosyn and infectious disease following closely. C ailin finalized showing Lauren along with enterococcus faecium VRE. Instructed and encourage the patient to continue with incentive spirometer and increasing activity as tolerated. Review of systems: Constitutional: No reports of fatigue, fever, or chills Cardiovascular: No reports of chest pain or palpitations Respiratory: No reports of shortness of breath, reports occasional cough GI: No reports of nausea, vomiting, or diarrhea, reports abdominal discomfort at the incision site : No reports of dysuria or retention Neurovascular: No reports of weakness or numbness All medications have been reviewed Objective - Vital Signs Vital signs: Vital Signs Temp 97.5 F L 01/01/21 05:00 Pulse 85 01/01/21 05:00 Resp 18 01/01/21 05:00 BP 167/93 01/01/21 05:00 Pulse Ox 97 01/01/21 05:00 Intake & Output 12/31/20 01/01/21 01/01/21 18:59 06:59 18:59 Intake Total 150 200 Output Total 1252 830 30 Balance -1105 -630 -30 Intake: Intake, IV Titration 150 200 Amount DAPTOmycin 500 mg In 50 Sodium Chloride 0.9% 50 ml @ 100 mls/hr IVPB Q24H [facility] Rx#:[id number] Piperacillin-Tazobactam 3 100 200 .375 gm In Sodium Chloride 0.9% 100 ml @ 25 mls/hr IVPB Q8HR [facility] Rx# :[id number] Output: Drainage 80 30 30 Right Lower Abdomen 80 30 30 Urine 1175 800 Other: Voiding Method Indwelling Catheter Indwelling Catheter # Voids 1 - Exam Patient is sitting up in the bed, no acute distress, awake alert and oriented.. HEENT: Normocephalic. Neck is supple. Pupils reactive. Nostrils clear. Oral cavity is moist. Ears reveal no drainage. Neck reveals no JVD, carotid bruits, or thyromegaly. CHEST EXAMINATION: Trachea is central. Symmetrical expansion. Lung tinoco clear to auscultation and percussion. CARDIAC: Normal S1, S2 with no gallops. No murmurs ABDOMEN: Soft. Tender on palpation. Surgical site is bandaged and bandages dry and intact. Recent staple removal by surgery and dressing change. Bowel sounds noted. No organomegaly. No abdominal bruits. Abdominal binder noted. Extremities: reveal no edema. No clubbing or cyanosis, bilateral SCDs noted Neurologically awake, alert, oriented x3 with well-coordinated movements. No focal deficits noted Skin: No rash or skin lesions. Psychiatric: Cooperative. Non-suicidal Musculoskeletal: No joint swelling or deformity. Normal range of motion. - Labs CBC & Chem 7: 12/31/20 05:42 12/31/20 05:42 Labs: Microbiology - Last 24 Hours (Table) 12/27/20 14:00 Anaerobic Culture - Final Appendix Assessment and Plan Assessment: Status post sigmoid colectomy postoperative day 5 due to recent diverticulitis with perforation and possible colovesicular fistula. Elevated blood pressure likely due to pain. Improved now Ongoing nicotine addiction on daily basis, continue with nicotine patch DVT prophylaxis: Subcutaneous heparin GI prophylaxis: Protonix Full code Plan: Patient will be continued on IV antibiotics in the form of Zosyn and daptomycin with cultures finalizing showing enterococcus VRE and lauren, not albicans. Infectious disease is following. Patient is tolerating diet with no reports of nausea or vomiting noted. Continue with pain management per primary service. Bowel regimen and encourage ambulation and incentive spirometry. Patient is passing gas and having multiple bowel movements. Albuterol breathing treatments when necessary for shortness of breath. Smoking cessation has been counseled extensively. Will repeat a.m. labs and replace electrolytes as needed. Thank you for this consult and we'll continue to follow along with you during hospitalization.
[2021-01-01] MEDS: DAPTOmycin 500 MG in SODIUM CHLORIDE 0.9% 50 ML IVPB SCH (16:25)
--- NOTE | 2021-01-01 23:35 | PN ---
PROGRESS NOTE DATE OF SERVICE: 01/01/2021 REASON FOR FOLLOWUP: Complicated diverticulitis with intraabdominal abscess. INTERVAL HISTORY: Patient is currently afebrile. Patient is breathing comfortably. Has been complaining of more pain to the lower abdominal area. The patient did have slight dehiscence of abdominal incision, currently packed but no purulent drainage. Denies any chest pain. No shortness of breath or cough. PHYSICAL EXAMINATION: Blood pressure 170/97 with a pulse of 88, temperature of 98.1. He is 92% on room air. General description: The patient is a middle-aged male up in the bed in no distress. Respiratory system: Unlabored breathing. Clear to auscultation anteriorly. Heart S1, S2. Regular rate and rhythm. ABDOMEN: Soft, mildly distended and tender in midline incision. No significant redness or drainage. LABS: No new labs have been obtained today. Abdominal culture has been positive with Lauren non albicans and VRE. DIAGNOSTIC IMPRESSION AND PLAN: Patient with complicated diverticulitis, status post primary resection, appendectomy, abdominal culture positive for VRE and non albicans Lauren. The patient is currently covered with daptomycin and Eraxis and Zosyn to continue while monitoring clinical course closely. Continue supportive care. MMODL / IJN: [id number] /
[2021-01-02] MEDS: HYDROmorphone 0.5 MG/0.5 ML SYRINGE IVP PRN ×4 (00:04→18:23)
[2021-01-02] MEDS: PIPERACILLIN-TAZOBACTAM 3.375 GM in SODIUM CHLORIDE 0.9% 100 ML IVPB SCH ×4 (01:21→23:52)
[2021-01-02] MEDS: HYDROcodone/APAP 7.5-325MG 1 EACH TAB PO PRN ×3 (03:26→20:32)
[2021-01-02] MEDS: KETOROLAC 15 MG/ML 1 ML VIAL IVP PRN ×2 (03:40→09:45)
[2021-01-02] MEDS: HEPARIN SODIUM,PORCINE 5,000 UNIT/ML 1 ML VIAL SQ SCH ×3 (04:46→20:34)
[2021-01-02] MEDS: NICOTINE 14MG/24HR PATCH TRANSDERM SCH (08:18)
[2021-01-02] MEDS: PANTOPRAZOLE 40 MG/10 ML VIAL IV SCH (08:18)
--- NOTE | 2021-01-02 11:52 | P.PN ---
Subjective Progress Note Date: 01/02/21 Principal diagnosis: Diverticulitis, status post colon resection The patient is seen on rounds. Still complaining of pain. The toradol seemed to help him the most. No nausea or vomiting. Tolerating a diet. Passing flatus. Complains of cough, which is nonproductive Objective - Vital Signs Vital signs: Vital Signs Temp 97.6 F 01/02/21 05:00 Pulse 93 01/02/21 05:00 Resp 16 01/02/21 05:00 BP 160/97 01/02/21 05:00 Pulse Ox 94 L 01/02/21 05:00 Intake & Output 01/01/21 01/02/21 01/02/21 18:59 06:59 18:59 Intake Total 1000 590 Output Total 150 120 Balance 850 470 Intake: Intake, IV Titration 400 Amount Anidulafungin 200 mg In 200 Sodium Chloride 0.9% 200 ml @ 84 mls/hr IVPB ONCE ONE Rx#:[id number] DAPTOmycin 500 mg In 100 Sodium Chloride 0.9% 50 ml @ 100 mls/hr IVPB Q24H [facility] Rx#:[id number] Piperacillin-Tazobactam 3 100 .375 gm In Sodium Chloride 0.9% 100 ml @ 25 mls/hr IVPB Q8HR [facility] Rx# :[id number] Oral 600 590 Output: Drainage 150 120 Right Lower Abdomen 150 120 Other: Voiding Method Toilet Toilet Urinal # Voids 2 - Constitutional General appearance: Present: cooperative, no acute distress - Respiratory Respiratory: bilateral: diminished (at the bases) - Gastrointestinal General gastrointestinal: Present: normal bowel sounds, soft (softly distended) Localized gastrointestinal: surgical scar: diffuse (incision with less erythema, some bloody drainage from the mid portion. Improved from earlier in the week) - Labs CBC & Chem 7: 12/31/20 05:42 12/31/20 05:42 Labs: Microbiology - Last 24 Hours (Table) 01/01/21 09:00 Gram Stain - Preliminary Abdomen Wound Culture - Preliminary Group D Enterococcus Assessment and Plan (1) Tobacco abuse Current Visit: Yes Status: Acute Code(s): Z72.0 - TOBACCO USE SNOMED Code(s): 854592981 (2) Diverticulitis of intestine with perforation and abscess Current Visit: No Status: Acute Code(s): K57.80 - DVTRCLI OF INTEST, PART UNSP, W PERF AND ABSCESS W/O BLEED SNOMED Code(s): 259934526 (3) Atelectasis Current Visit: Yes Status: Acute Code(s): J98.11 - ATELECTASIS SNOMED Code(s): 48035630 (4) Wound infection Current Visit: Yes Status: Acute Code(s): T14.8XXA - OTHER INJURY OF UNSPECIFIED BODY REGION, INITIAL ENCOUNTER; L08.9 - LOCAL INFECTION OF THE SKIN AND SUBCUTANEOUS TISSUE, UNSP SNOMED Code(s): 74114846 Plan: Will order an oral NSAID for better pain control. Local wound care. Wound culture seems to be the same organism as intraabdominal culture. Will remove drain. Await antibiotic recommendations from Dr Herrera. If he needs to be discharged on IV antibiotics, will need a new PICC line placed as the prior one was removed due to kinking.
[2021-01-02 12:09] LABS: African American GFR (CKD) 145.4 (60.0-200.0); Calcium 8.6 mg/dL (8.7-10.3); Non-African American GFR(CKD) 125.5 (60.0-200.0); Potassium 4.5 mmol/L (3.5-5.5)
[2021-01-02] MEDS: ANIDULAFUNGIN 100 MG in SODIUM CHLORIDE 0.9% 100 ML IVPB SCH (12:39)
[2021-01-02 13:32] LABS: Basophils # (A) 0.02 X 10*3/uL (0.00-0.10); Basophils % (A) 0.2 %; Eosinophils # (A) 0.16 X 10*3/uL (0.04-0.35); Eosinophils % (A) 1.8 %; HCT 38.6 % (39.6-50.0); HGB 12.8 g/dL (13.0-17.0); Lymphocytes # (A) 1.24 X 10*3/uL (0.90-5.00); Lymphocytes % (A) 13.7 %; MCH 33.2 pg (27.0-32.0); MCHC 33.2 g/dL (32.0-37.0); Mean Platelet Volume 11.1 fL (9.5-12.2); Monocytes # (A) 0.71 X 10*3/uL (0.20-1.00); Monocytes % (A) 7.9 %; Neutrophils # (A) 6.88 X 10*3/uL (1.80-7.70); Neutrophils % (A) 76.1 %; Platelet Count 287 X 10*3/uL (140-440); RBC 3.86 X 10*6/uL (4.40-5.60); RDW 12.6 % (11.5-14.5); WBC 9.04 X 10*3/uL (4.50-10.00)
--- NOTE | 2021-01-02 14:01 | P.PN ---
Subjective Progress Note Date: 01/02/21 - Reason for Consult Consult date: 12/28/20 Medical management - Chief Complaint Status post sigmoid colectomy - History of Present Illness Patient is a 50-year-old male with a known history of diverticulitis with p erforation admitted to the hospital from 11/21/2020 2 11/27/2020, patient was on antibiotic course via PICC line, currently everyday smoker and history of colovesical fistula was admitted to the hospital for sigmoid colon resection. Patient had cystoscope with bilateral ureteral stent placement to help with uterine identification. No obvious fistula identified on cystoscopy. Patient tolerated the procedure very well. Currently status post sigmoid colon resection with incidental appendectomy for acute on chronic diverticulitis. Postoperatively blood pressure was elevated. Patient is on epidural for pain management. Patient does have abdominal pain she is fairly controlled at this time. No complaints of chest pain or shortness of breath. Patient has been afebrile. Patient does complain of cough and unable to bring out any sputum due to abdominal discomfort with coughing. Does have some nausea but no episodes of vomiting. No headache or dizziness or lightheadedness. Patient is on Donis catheter currently. Laboratory data showed WBC 12.1, hemoglobin 13.3 and platelets 269 BUN 8.0 and creatinine 0.8 Sodium 138 potassium 4.5 and calcium 8.7 12/29/2020 Patient is seen and evaluated in follow-up currently sitting up in the chair with no acute overnight issues. Patient is tolerating full liquids and denies any gas or bowel movements at this time. Patient is continued on indwelling Donis catheter with urine noted. Continues to be on an epidural pain pump in being controlled by anesthesia. Patient continues to have abdominal discomfort and tenderness especially with position changes and coughing. Incentive spirometer at the bedside and instructed the patient to continue using every hour while awake although patient states it makes him cough further and causes more abdominal discomfort. Patient is maintained on IV antibiotics in the form of Zosyn and will continue at this time. Infectious disease is following and currently awaiting cultures. 12/30/2020 Patient is currently sitting in a chair. Complains of increasing tumbling sounds overnigh and no bowel night at. Continue incentive spirometry. Encouraged with increased ambulation.. No nausea vomiting. No chest pain or shortness of breath. Patient is being continued on IV medications. Fluid culture showed Zachary species and Enterococcus patient. Antibiotics in the form of Zosyn. ID is on board. 12/31/2020 Patient is currently lying in the bed comfortably. No nausea or vomiting. Rambling noise in the abdominal is better today. Patient has not passed any flatus yet.. Epidural anesthesia is being removed today. Abdominal pain is better. No fever no chills. Laboratory data showed WBC 8.9, hemoglobin 12.1 and platelets 237 sodium 137 potassium 4.4 BUN 5 and creatinine 0.6 01/01/2021 Patient is seen this morning currently sitting up in the bed continues to have pain in the lower abdominal region. Patient recently had epidural pump for pain removed and states his pain is hard to control at this time. Patient is reportedly passing gas and has had multiple bowel movements. Patient recently had some casie from surgery removed and surgical site and dressing is dry and intact. Patient to continue with abdominal binder while out of bed. White blood count is 8.9 today and hemoglobin is stable at 12.1. Sodium is 134, potassium is 4.4, creatinine is 0.6. Patient is maintained on IV antibiotics in the form of daptomycin and Zosyn and infectious disease following closely. Cathy parisi finalized showing Zachary along with enterococcus faecium VRE. Instructed and encourage the patient to continue with incentive spirometer and increasing activity as tolerated. 01/02/2021 Patient is seen and evaluated continues to have abdominal pain stating that his pain is not controlled. Patient has Toradol along with narcotics ordered and will continue with an oral NSAID. Labs within normal limits. Current sodium is 139, potassium is 4.5, creatinine is 0.5. Patient instructed to increase activity as tolerated and sit up out of the bed in the chair more often. Patient continues to have a cough and attempting to expectorate some phlegm. Again, stressed the importance of the incentive spirometer and continuing to use it at least 10 times every hour while awake. Patient continues to be resistant stating it makes him cough more. Discussed the importance of this. We'll co bob to follow along with surgery. Infectious disease also following and patient may possibly need IV antibiotic therapy in the outpatient setting. Review of systems: Constitutional: No reports of fatigue, fever, or chills Cardiovascular: No reports of chest pain or palpitations Respiratory: No reports of shortness of breath, reports occasional cough GI: No reports of nausea, vomiting, or diarrhea, reports abdominal discomfort at the incision site : No reports of dysuria or retention Neurovascular: No reports of weakness or numbness All medications have been reviewed Objective - Vital Signs Vital signs: Vital Signs Temp 97.6 F 01/02/21 05:00 Pulse 93 01/02/21 05:00 Resp 16 01/02/21 05:00 BP 160/97 01/02/21 05:00 Pulse Ox 94 L 01/02/21 05:00 Intake & Output 01/01/21 01/02/21 01/02/21 18:59 06:59 18:59 Intake Total 1000 590 Output Total 150 120 Balance 850 470 Intake: Intake, IV Titration 400 Amount Anidulafungin 200 mg In 200 Sodium Chloride 0.9% 200 ml @ 84 mls/hr IVPB ONCE ONE Rx#:[id number] DAPTOmycin 500 mg In 100 Sodium Chloride 0.9% 50 ml @ 100 mls/hr IVPB Q24H [facility] Rx#:[id number] Piperacillin-Tazobactam 3 100 .375 gm In Sodium Chloride 0.9% 100 ml @ 25 mls/hr IVPB Q8HR [facility] Rx# :[id number] Oral 600 590 Output: Drainage 150 120 Right Lower Abdomen 150 120 Other: Voiding Method Toilet Toilet Urinal # Voids 2 - Exam Patient is sitting up in the bed, no acute distress, awake alert and oriented.. HEENT: Normocephalic. Neck is supple. Pupils reactive. Nostrils clear. Oral cavity is moist. Ears reveal no drainage. Neck reveals no JVD, carotid bruits, or thyromegaly. CHEST EXAMINATION: Trachea is central. Symmetrical expansion. Lung tinoco clear to auscultation and percussion. CARDIAC: Normal S1, S2 with no gallops. No murmurs ABDOMEN: Soft. Tender on palpation. Surgical site is bandaged and bandages are dry and intact. Recent staple removal by surgery and dressing change. Bowel sounds noted. No organomegaly. No abdominal bruits. Abdominal binder noted. Extremities: reveal no edema. No clubbing or cyanosis, bilateral SCDs noted Neurologically awake, alert, oriented x3 with well-coordinated movements. No focal deficits noted Skin: No rash or skin lesions. Psychiatric: Cooperative. Non-suicidal Musculoskeletal: No joint swelling or deformity. Normal range of motion. - Labs CBC & Chem 7: 01/02/21 06:09 01/02/21 06:09 Labs: Microbiology - Last 24 Hours (Table) 01/01/21 09:00 Gram Stain - Preliminary Abdomen Wound Culture - Preliminary Group D Enterococcus Assessment and Plan Assessment: Status post sigmoid colectomy postoperative day 6 due to recent diverticulitis with perforation and possible colovesicular fistula. Elevated blood pressure likely due to pain. Improved now Ongoing nicotine addiction on daily basis, continue with nicotine patch DVT prophylaxis: Subcutaneous heparin GI prophylaxis: Protonix Full code Plan: Patient will be continued on IV antibiotics in the form of Zosyn and daptomycin with cultures finalizing showing enterococcus VRE and zachary, not albicans. Infectious disease is following. Awaiting for 01/01/2021 abdominal cultures to finalize and patient will likely need IV antibiotic therapy in the outpatient setting. Patient is tolerating diet with no reports of nausea or vomiting noted. Continue with pain management per primary service. Oral NSAIDs being added. Bowel regimen and encourage ambulation and incentive spirometry. Again, stressed the importance of the incentive spirometer and sitting up out of the bed and increasing activity. Abdominal binder to be used while out of bed. Patient is passing gas and having multiple bowel movements. Albuterol breathing treatments when necessary for shortness of breath. Smoking cessation has been counseled extensively. Thank you for this consult and we'll continue to follow along with you during hospitalization.
[2021-01-02] MEDS: DAPTOmycin 500 MG in SODIUM CHLORIDE 0.9% 50 ML IVPB SCH (15:23)
[2021-01-02] MEDS: NAPROXEN 250 MG TAB PO SCH (20:33)
--- NOTE | 2021-01-02 22:57 | PN ---
PROGRESS NOTE DATE OF SERVICE: 01/02/2021 REASON FOR FOLLOWUP: Abdominal abscess and complicated diverticulitis. INTERVAL HISTORY: The patient is currently afebrile. The patient is still complaining of significant abdominal pain, though. Denies having any chest pain or shortness of breath. Occasional cough. No diarrhea. PHYSICAL EXAMINATION: Blood pressure 170/100 with a pulse of 99. Temperature is 97.7. He is 98% on 3 L nasal cannula. General description is a middle-aged male up in the bed in no distress. RESPIRATORY SYSTEM: Unlabored breathing with decreased intensity of breath sounds. No wheeze. HEART: S1, S2. Regular rate and rhythm. ABDOMEN: Soft. Mildly distended. No guarding or rigidity. LABS: Hemoglobin is 12.8, white count 9.04, BUN of 8, creatinine 0.5. DIAGNOSTIC IMPRESSION AND PLAN: Patient with abdominal abscess and complicated diverticulitis, status post resection and anastomosis. Culture positive for VRE, Lauren glabrata. Patient is covered with daptomycin and Eraxis for 2 weeks along with IV Invanz for a week on discharge and close outpatient followup. MMODL / IJN: [id number] /
[2021-01-03] MEDS: HYDROcodone/APAP 7.5-325MG 1 EACH TAB PO PRN ×4 (03:22→22:59)
[2021-01-03] MEDS: HEPARIN SODIUM,PORCINE 5,000 UNIT/ML 1 ML VIAL SQ SCH ×3 (04:38→20:06)
[2021-01-03] MEDS: PIPERACILLIN-TAZOBACTAM 3.375 GM in SODIUM CHLORIDE 0.9% 100 ML IVPB SCH ×2 (09:03→17:44)
[2021-01-03] MEDS: PANTOPRAZOLE 40 MG/10 ML VIAL IV SCH (09:03)
[2021-01-03] MEDS: NAPROXEN 250 MG TAB PO SCH ×2 (09:04→20:01)
[2021-01-03] MEDS: NICOTINE 14MG/24HR PATCH TRANSDERM SCH (09:04)
[2021-01-03] MEDS: ANIDULAFUNGIN 100 MG in SODIUM CHLORIDE 0.9% 100 ML IVPB SCH (12:45)
[2021-01-03 12:51] VITALS: BMI 26.6
--- NOTE | 2021-01-03 15:12 | PN ---
PROGRESS NOTE DATE OF SERVICE: 01/03/2021 REASON FOR FOLLOWUP: Complicated diverticulitis and abdominal abscess. INTERVAL HISTORY: The patient is currently afebrile. Patient is still complaining of abdominal pain after his PC was discontinued. The patient denies having any chest pain. No shortness of breath or cough. Oral intake remains to be very poor. Did not have any bowel movement. PHYSICAL EXAMINATION: Blood pressure is 162/98 with a pulse of 81, temperature 97.5. General description is a middle-aged male up in the bed in no distress. RESPIRATORY SYSTEM: Unlabored breathing with decreased intensity of breath sounds. No wheeze. HEART: S1, S2. Regular rate and rhythm. ABDOMEN: Soft, mildly distended. No guarding or rigidity. LABS: Hemoglobin 12.8, white count 9.04. BUN of 8, creatinine 0.5. DIAGNOSTIC IMPRESSION AND PLAN: Patient with complicated diverticulitis and abdominal abscess, status post resection and primary anastomosis after a course of IV antibiotic therapy, status post appendectomy. Abdominal culture positive for VRE and Lauren glabrata. The patient is currently covered with daptomycin, Eraxis and Zosyn will be continue. Transition to daptomycin, Invanz and Eraxis on discharge. Prescriptions were provided to the case management social worker once cleared by Surgery for discharge. MMODL / IJN: [id number] /
[2021-01-03] MEDS: DAPTOmycin 500 MG in SODIUM CHLORIDE 0.9% 50 ML IVPB SCH (15:20)
[2021-01-03] MEDS: BENZOCAINE/MENTHOL LOZENG 1 EACH LOZENGE MUCOUS MEM PRN (15:21)
--- NOTE | 2021-01-03 16:43 | P.PN ---
Subjective Progress Note Date: 01/03/21 Patient doing well picc placed today. Pain controlled Objective - Vital Signs Vital signs: Vital Signs Temp 97.5 F L 01/03/21 04:39 Pulse 81 01/03/21 08:15 Resp 18 01/03/21 08:15 BP 162/98 01/03/21 04:39 Pulse Ox 93 L 01/03/21 09:07 Intake & Output 01/02/21 01/03/21 01/03/21 18:59 06:59 18:59 Intake Total 690 Output Total 70 210 Balance -70 690 -210 Weight 86.6 kg Intake: Intake, IV Titration 100 Amount Piperacillin-Tazobactam 3 100 .375 gm In Sodium Chloride 0.9% 100 ml @ 25 mls/hr IVPB Q8HR [facility] Rx# :[id number] Oral 590 Output: Drainage 70 210 Right Lower Abdomen 70 210 Other: Voiding Method Toilet Toilet # Voids 2 2 - Constitutional General appearance: Present: cooperative - Cardiovascular Rhythm: regular - Gastrointestinal Gastrointestinal Comment(s): s/nd - Labs CBC & Chem 7: 01/02/21 06:09 01/02/21 06:09 Labs: Microbiology - Last 24 Hours (Table) 01/01/21 09:00 Gram Stain - Final Abdomen Wound Culture - Final Enterococcus faecium VRE Assessment and Plan Assessment: S/P LAR Plan: ABX per ID, anticipate DC home in the next day or two when tolerating pain control on oral meds
--- NOTE | 2021-01-04 01:47 | US ---
EXAM: US Duplex Right Lower Extremity Veins CLINICAL HISTORY: ITS.REASON US Reason: new swelling, warmth in right calf TECHNIQUE: Real-time duplex ultrasound scan of the right lower extremity veins integrating B-mode two-dimensional vascular structure, Doppler spectral analysis, color flow Doppler imaging and compression. COMPARISON: No relevant prior studies available. FINDINGS: Deep veins: Thrombus noted within the distal femoral vein, popliteal vein and proximal calf veins. All other veins are patent. Superficial veins: Unremarkable. No thrombus in the visualized great saphenous vein. Soft tissues: No acute findings. No popliteal cyst. IMPRESSION: Thrombus noted within the distal femoral vein, popliteal vein and proximal calf veins.
[2021-01-04] MEDS ORDERED: HEPARIN SOD,PORK IN 0.45% NACL 25,000 UNIT in 0.45% NACL 1 250ML.BAG IV SCH ×2 (03:30→04:30)
[2021-01-04 04:15] LABS: Basophils # (A) 0.1 k/uL (0-0.2); Basophils % (A) 1 %; Eosinophils # (A) 0.5 k/uL (0-0.7); Eosinophils % (A) 6 %; HCT 42.8 % (39.0-53.0); HGB 13.7 gm/dL (13.0-17.5); Lymphocytes # (A) 1.7 k/uL (1.0-4.8); Lymphocytes % (A) 21 %; MCH 32.8 pg (25.0-35.0); MCHC 31.9 g/dL (31.0-37.0); Macrocytosis Slight; Mean Platelet Volume 7.2; Monocytes # (A) 0.4 k/uL (0-1.0); Monocytes % (A) 5 %; Neutrophils # (A) 5.6 k/uL (1.3-7.7); Neutrophils % (A) 67 %; Platelet Count 282 k/uL (150-450); RBC 4.16 m/uL (4.30-5.90); RDW 12.8 % (11.5-15.5); WBC 8.3 k/uL (3.8-10.6)
[2021-01-04 04:32] LABS: Partial Thromboplastin Time 22.7 sec (22.0-30.0); Prothrombin Time 10.5 sec (9.0-12.0)
[2021-01-04] MEDS: HEPARIN SODIUM,PORCINE 5,000 UNIT/ML 1 ML VIAL SQ SCH (04:32)
[2021-01-04] MEDS: HYDROcodone/APAP 7.5-325MG 1 EACH TAB PO PRN ×4 (04:39→23:12)
[2021-01-04] MEDS: PANTOPRAZOLE 40 MG/10 ML VIAL IV SCH (08:11)
[2021-01-04] MEDS: NAPROXEN 250 MG TAB PO SCH ×2 (08:12→20:58)
[2021-01-04] MEDS: NICOTINE 14MG/24HR PATCH TRANSDERM SCH (08:13)
--- NOTE | 2021-01-04 12:04 | CT ---
EXAMINATION TYPE: CT angio chest DATE OF EXAM: 01/04/2021 COMPARISON: None HISTORY: Shortness of breath and leg swelling. Post op colon resection. CT DLP: 450.6 mGycm CONTRAST: CT chest with contrast and 3D reconstruction with MIP imaging is performed with IV Contrast, patient injected with 100 mL of Isovue 370. Contrast-enhanced CT of the chest was performed through the course of the pulmonary arteries with shawanda g and mediastinal window settings submitted. 3D reconstruction with MIP imaging was also performed. PULMONARY ARTERIES: Moderate bilateral pulmonary embolism filling first second and third order branch es bilaterally. No evidence for a saddle component at this time. No evidence of right ventricular str ain. LUNGS: Groundglass infiltrate left upper lobe and additional groundglass infiltrates scattered throug hout both lung tinoco may reflect underlying pneumonia. No evidence for atelectasis. No pulmonary n odule or mass is detected. No pleural effusion. MEDIASTINUM: Thoracic aorta is of normal caliber,however, evaluation is limited given timing of the contrast bolus. If there is concern for thoracic aortic pathology consider CURRY. Correlate clinicall y . The heart is not enlarged. No evidence for mediastinal mass. No mediastinal lymph nodes greater than 1cm. HILAR STRUCTURES: No evidence for mass. No hilar lymph nodes greater than 1 cm. UPPER ABDOMEN: No significant abnormality is seen. IMPRESSION: 1. Moderate bilateral pulmonary embolism filling first second and third order branches bilaterally. No evidence for a saddle component at this time. No evidence of right ventricular strain. 2. Correlate for pneumonia.
[2021-01-04] MEDS: ANIDULAFUNGIN 100 MG in SODIUM CHLORIDE 0.9% 100 ML IVPB SCH (12:15)
[2021-01-04] MEDS ORDERED: HEPARIN SODIUM,PORCINE 10,000 UNIT/ML 1 ML VIAL IV ONE (12:25)
[2021-01-04] MEDS: DAPTOmycin 500 MG in SODIUM CHLORIDE 0.9% 50 ML IVPB SCH (13:43)
[2021-01-04] MEDS: APIXABAN 5 MG TAB PO SCH ×2 (13:47→20:58)
--- NOTE | 2021-01-04 13:47 | P.PN ---
Subjective 50-year-old male with a known history of diverticulitis with perforation admitted to the hospital from 11/21/2020 2 11/27/2020, patient was on antibiotic course via PICC line, currently everyday smoker and history of colovesical fistula was admitted to the hospital for sigmoid colon resection. Patient had cystoscope with bilateral ureteral stent placement to help with uterine identification. No obvious fistula identified on cystoscopy. Patient tolerated the procedure very well. Currently status post sigmoid colon resection with incidental appendectomy for acute on chronic diverticulitis. Postoperatively blood pressure was elevated. Patient is on epidural for pain management. Patient does have abdominal pain she is fairly controlled at this time. No complaints of chest pain or shortness of breath. Patient has been afebrile. Patient does complain of cough and unable to bring out any sputum due to abdominal discomfort with coughing. Does have some nausea but no episodes of vomiting. No headache or dizziness or lightheadedness. Patient is on Donis catheter currently. Laboratory data showed WBC 12.1, hemoglobin 13.3 and platelets 269 BUN 8.0 and creatinine 0.8 Sodium 138 potassium 4.5 and calcium 8.7 12/29/2020 Patient is seen and evaluated in follow-up currently sitting up in the chair with no acute overnight issues. Patient is tolerating full liquids and denies any gas or bowel movements at this time. Patient is continued on indwelling Donis catheter with urine noted. Continues to be on an epidural pain pump in [facility] controlled by anesthesia. Patient continues to have abdominal discomfort and tenderness especially with position changes and coughing. Incentive spirometer at the bedside and instructed the patient to continue using every hour while awake although patient states it makes him cough further and causes more abdominal discomfort. Patient is maintained on IV antibiotics in the form of Zosyn and will continue at this time. Infectious disease is following and currently awaiting cultures. 12/30/2020 Patient is currently sitting in a chair. Complains of increasing tumbling sounds overnigh and no bowel night at. Continue incentive spirometry. Encouraged with increased ambulation.. No nausea vomiting. No chest pain or shortness of breath. Patient is being continued on IV medications. Fluid culture showed Zachary species and Enterococcus patient. Antibiotics in the form of Zosyn. ID is on board. 12/31/2020 Patient is currently lying in the bed comfortably. No nausea or vomiting. Rambling noise in the abdominal is better today. Patient has not passed any flatus yet.. Epidural anesthesia is being removed today. Abdominal pain is better. No fever no chills. Laboratory data showed WBC 8.9, hemoglobin 12.1 and platelets 237 sodium 137 potassium 4.4 BUN 5 and creatinine 0.6 01/01/2021 Patient is seen this morning currently sitting up in the bed continues to have pain in the lower abdominal region. Patient recently had epidural pump for pain removed and states his pain is hard to control at this time. Patient is reportedly passing gas and has had multiple bowel movements. Patient recently had some casie from surgery removed and surgical site and dressing is dry and intact. Patient to continue with abdominal binder while out of bed. White blood count is 8.9 today and hemoglobin is stable at 12.1. Sodium is 134, potassium is 4.4, creatinine is 0.6. Patient is maintained on IV antibiotics in the form of daptomycin and Zosyn and infectious disease following closely. Cultures finalized showing Zachayr along with enterococcus faecium VRE. Instructed and encourage the patient to continue with incentive spirometer and increasing activity as tolerated. 01/02/2021 Patient is seen and evaluated continues to have abdominal pain stating that his pain is not controlled. Patient has Toradol along with narcotics ordered and will continue with an oral NSAID. Labs within normal limits. Current sodium is 139, potassium is 4.5, creatinine is 0.5. Patient instructed to increase activity as tolerated and sit up out of the bed in the chair more often. Karlo bennett continues to have a cough and attempting to expectorate some phlegm. Again, stressed the importance of the incentive spirometer and continuing to use it at least 10 times every hour while awake. Patient continues to be resistant stating it makes him cough more. Discussed the importance of this. We'll continue to follow along with surgery. Infectious disease also following and patient may possibly need IV antibiotic therapy in the outpatient setting. 01/03/2021 Patient is still complaining of severe abdominal pain and requesting IV Dilaudid for pain. Review of systems: Constitutional: No reports of fatigue, fever, or chills Cardiovascular: No reports of chest pain or palpitations Respiratory: No reports of shortness of breath, reports occasional cough GI: No reports of nausea, vomiting, or diarrhea, reports abdominal discomfort at the incision site : No reports of dysuria or retention Neurovascular: No reports of weakness or numbness Objective - Vital Signs Vital signs: Vital Signs Temp 97.5 F L 01/04/21 12:26 Pulse 91 01/04/21 12:26 Resp 18 01/04/21 12:26 BP 158/90 01/04/21 12:26 Pulse Ox 94 L 01/04/21 12:26 Intake & Output 01/03/21 01/04/21 01/04/21 18:59 06:59 18:59 Intake Total 240 124.444 Output Total 210 Balance 30 124.444 Weight 86.6 kg Intake: Intake, IV Titration 124.444 Amount Heparin Sod,Pork in 0.45% 124.444 NaCl 25,000 unit In 0.45 % NaCl 1 250ml.bag @ 18 UNITS/KG/HR 15.588 mls/hr IV .Q16H3M [facility] Rx#: [id number] Oral 240 Output: Drainage 210 Right Lower Abdomen 210 Other: Voiding Method Toilet Toilet # Voids 3 0 - Exam Patient is sitting up in the bed, no acute distress, awake alert and oriented.. HEENT: Normocephalic. Neck is supple. Pupils reactive. Nostrils clear. Oral cavity is moist. Ears reveal no drainage. Neck reveals no JVD, carotid bruits, or thyromegaly. CHEST EXAMINATION: Trachea is central. Symmetrical expansion. Lung tinoco clear to auscultation and percussion. CARDIAC: Normal S1, S2 with no gallops. No murmurs ABDOMEN: Soft. Tender on palpation. Surgical site is bandaged and bandages are dry and intact. Recent staple removal by surgery and dressing change. Bowel sounds noted. No organomegaly. No abdominal bruits. Abdominal binder noted. Extremities: reveal no edema. No clubbing or cyanosis, bilateral SCDs noted Neurologically awake, alert, oriented x3 with well-coordinated movements. No focal deficits noted Skin: No rash or skin lesions. Psychiatric: Cooperative. Non-suicidal Musculoskeletal: No joint swelling or deformity. Normal range of motion. - Labs CBC & Chem 7: 01/04/21 04:02 01/02/21 06:09 Labs: Abnormal Lab Results - Last 24 Hours (Table) 01/04/21 01/04/21 Range/Units 04:02 10:22 RBC 4.16 L (4.30-5.90) m/uL MCV 103.0 H (80.0-100.0) fL APTT 33.6 H (22.0-30.0) sec Microbiology - Last 24 Hours (Table) 01/01/21 09:00 Gram Stain - Final Abdomen Wound Culture - Final Enterococcus faecium VRE Assessment and Plan Plan: Status post sigmoid colectomy postoperative day 7 due to recent diverticulitis with perforation and possible colovesicular fistula. Elevated blood pressure likely due to pain. Improved now Ongoing nicotine addiction on daily basis, continue with nicotine patch DVT prophylaxis: Subcutaneous heparin GI prophylaxis: Protonix Full code Plan: Patient will be continued on IV antibiotics in the form of Zosyn and daptomycin with cultures finalizing showing enterococcus VRE and zachary, not albicans. Infectious disease is following. Awaiting for 01/01/2021 abdominal cultures to finalize and patient will likely need IV antibiotic therapy in the outpatient setting. Patient is tolerating diet with no reports of nausea or vomiting note d. Continue with pain management per primary service. Bowel regimen and encourage ambulation and incentive spirometry. Again, stressed the importance of the incentive spirometer and sitting up out of the bed and increasing activity. Abdominal binder to be used while out of bed. Patient is passing gas and having multiple bowel movements. Albuterol breathing treatments when necessary for shortness of breath. Smoking cessation has been counseled extensively.
[2021-01-04] MEDS: BENZOCAINE/MENTHOL LOZENG 1 EACH LOZENGE MUCOUS MEM PRN (14:20)
--- NOTE | 2021-01-04 15:11 | P.PN ---
Subjective Progress Note Date: 01/04/21 Patients pain is well controlled. Overnight he complained of leg swelling and was found to have DVT on US. Today he had some SOB and was found to ahve PE on CT. He was started on Heparin drip and is being bridged to eliquis per medicine recs. Objective - Vital Signs Vital signs: Vital Signs Temp 97.5 F L 01/04/21 12:26 Pulse 91 01/04/21 12:26 Resp 18 01/04/21 12:26 BP 158/90 01/04/21 12:26 Pulse Ox 94 L 01/04/21 12:26 Intake & Output 01/03/21 01/04/21 01/04/21 18:59 06:59 18:59 Intake Total 240 124.444 Output Total 210 Balance 30 124.444 Weight 86.6 kg Intake: Intake, IV Titration 124.444 Amount Heparin Sod,Pork in 0.45% 124.444 NaCl 25,000 unit In 0.45 % NaCl 1 250ml.bag @ 18 UNITS/KG/HR 15.588 mls/hr IV .Q16H3M [facility] Rx#: [id number] Oral 240 Output: Drainage 210 Right Lower Abdomen 210 Other: Voiding Method Toilet Toilet # Voids 3 0 - Constitutional General appearance: Present: cooperative - Respiratory Details: Nonlabored - Cardiovascular Rhythm: regular - Gastrointestinal Gastrointestinal Comment(s): S/NT/ND Incision with 2cm opening no purulent drainage - Musculoskeletal Musculoskeletal Comment(s): Right lower leg swelling, no pain - Labs CBC & Chem 7: 01/04/21 04:02 01/02/21 06:09 Labs: Abnormal Lab Results - Last 24 Hours (Table) 01/04/21 01/04/21 Range/Units 04:02 10:22 RBC 4.16 L (4.30-5.90) m/uL MCV 103.0 H (80.0-100.0) fL APTT 33.6 H (22.0-30.0) sec Microbiology - Last 24 Hours (Table) 01/01/21 09:00 Gram Stain - Final Abdomen Wound Culture - Final Enterococcus faecium VRE Assessment and Plan Assessment: S/P LAR PE and RLE DVT Plan: PE being treated with heparin drip being bridged to eliquis per medicine recs. Patient to continue treatment of DVT and PE per medicine team. ABX per ID. Will continue to monitor patient overnight given new findings of PE and DVT.
--- NOTE | 2021-01-04 15:35 | P.PN ---
Subjective Progress Note Date: 01/04/21 - Reason for Consult Consult date: 12/28/20 Medical management - Chief Complaint Status post sigmoid colectomy - History of Present Illness Patient is a 50-year-old male with a known history of diverticulitis with p erforation admitted to the hospital from 11/21/2020 2 11/27/2020, patient was on antibiotic course via PICC line, currently everyday smoker and history of colovesical fistula was admitted to the hospital for sigmoid colon resection. Patient had cystoscope with bilateral ureteral stent placement to help with uterine identification. No obvious fistula identified on cystoscopy. Patient tolerated the procedure very well. Currently status post sigmoid colon resection with incidental appendectomy for acute on chronic diverticulitis. Postoperatively blood pressure was elevated. Patient is on epidural for pain management. Patient does have abdominal pain she is fairly controlled at this time. No complaints of chest pain or shortness of breath. Patient has been afebrile. Patient does complain of cough and unable to bring out any sputum due to abdominal discomfort with coughing. Does have some nausea but no episodes of vomiting. No headache or dizziness or lightheadedness. Patient is on Donis catheter currently. Laboratory data showed WBC 12.1, hemoglobin 13.3 and platelets 269 BUN 8.0 and creatinine 0.8 Sodium 138 potassium 4.5 and calcium 8.7 12/29/2020 Patient is seen and evaluated in follow-up currently sitting up in the chair with no acute overnight issues. Patient is tolerating full liquids and denies any gas or bowel movements at this time. Patient is continued on indwelling Donis catheter with urine noted. Continues to be on an epidural pain pump in being controlled by anesthesia. Patient continues to have abdominal discomfort and tenderness especially with position changes and coughing. Incentive spirometer at the bedside and instructed the patient to continue using every hour while awake although patient states it makes him cough further and causes more abdominal discomfort. Patient is maintained on IV antibiotics in the form of Zosyn and will continue at this time. Infectious disease is following and currently awaiting cultures. 12/30/2020 Patient is currently sitting in a chair. Complains of increasing tumbling sounds overnigh and no bowel night at. Continue incentive spirometry. Encouraged with increased ambulation.. No nausea vomiting. No chest pain or shortness of breath. Patient is being continued on IV medications. Fluid culture showed Zachary species and Enterococcus patient. Antibiotics in the form of Zosyn. ID is on board. 12/31/2020 Patient is currently lying in the bed comfortably. No nausea or vomiting. Rambling noise in the abdominal is better today. Patient has not passed any flatus yet.. Epidural anesthesia is being removed today. Abdominal pain is better. No fever no chills. Laboratory data showed WBC 8.9, hemoglobin 12.1 and platelets 237 sodium 137 potassium 4.4 BUN 5 and creatinine 0.6 01/01/2021 Patient is seen this morning currently sitting up in the bed continues to have pain in the lower abdominal region. Patient recently had epidural pump for pain removed and states his pain is hard to control at this time. Patient is reportedly passing gas and has had multiple bowel movements. Patient recently had some casie from surgery removed and surgical site and dressing is dry and intact. Patient to continue with abdominal binder while out of bed. White blood count is 8.9 today and hemoglobin is stable at 12.1. Sodium is 134, potassium is 4.4, creatinine is 0.6. Patient is maintained on IV antibiotics in the form of daptomycin and Zosyn and infectious disease following closely. Cathy parisi finalized showing Zachary along with enterococcus faecium VRE. Instructed and encourage the patient to continue with incentive spirometer and increasing activity as tolerated. 01/02/2021 Patient is seen and evaluated continues to have abdominal pain stating that his pain is not controlled. Patient has Toradol along with narcotics ordered and will continue with an oral NSAID. Labs within normal limits. Current sodium is 139, potassium is 4.5, creatinine is 0.5. Patient instructed to increase activity as tolerated and sit up out of the bed in the chair more often. Patient continues to have a cough and attempting to expectorate some phlegm. Again, stressed the importance of the incentive spirometer and continuing to use it at least 10 times every hour while awake. Patient continues to be resistant stating it makes him cough more. Discussed the importance of this. We'll co bob to follow along with surgery. Infectious disease also following and patient may possibly need IV antibiotic therapy in the outpatient setting. 01/03/2021 Patient is still complaining of severe abdominal pain and requesting IV Dilaudid for pain. 01/04/2021 Patient is seen this morning and having extreme right calf pain and a venous Doppler was ordered and was positive for DVT and patient was placed on IV heparin. Patient continued to have some cough and shortness of breath and a chest CTA was done showing moderate bilateral pulmonary embolism filling the first and second and third branches bilaterally with no evidence for a saddle component or right ventricular strain with the possibility of pneumonia. Patient was started on anticoagulant eliquis coverage was verified by case richard castillo. Patient did receive a PICC line and is continued on IV antibiotic therapy per infectious disease recommendations. Patient states he is passing gas and having bowel movements and tolerating diet with no reports of nausea or vomiting noted. Patient continues to have him abdominal discomfort although states he is having back pain most likely related to the hospital bed and is currently sitting up in the chair. Review of systems: Constitutional: No reports of fatigue, fever, or chills Cardiovascular: No reports of chest pain or palpitations Respiratory: No reports of shortness of breath, reports occasional cough with phlegm production GI: No reports of nausea, vomiting, or diarrhea, minimal abdominal discomfort : No reports of dysuria or retention Neurovascular: No reports of weakness or numbness All medications have been reviewed Objective - Vital Signs Vital signs: Vital Signs Temp 97.3 F L 01/04/21 04:45 Pulse 81 01/04/21 04:45 Resp 18 01/04/21 04:45 BP 155/100 01/04/21 04:45 Pulse Ox 93 L 01/04/21 08:28 Intake & Output 01/03/21 01/04/21 01/04/21 18:59 06:59 18:59 Intake Total 240 Output Total 210 Balance 30 Weight 86.6 kg Intake: Oral 240 Output: Drainage 210 Right Lower Abdomen 210 Other: Voiding Method Toilet Toilet # Voids 3 0 - Exam Patient is sitting up in the bed, no acute distress, awake alert and oriented.. HEENT: Normocephalic. Neck is supple. Pupils reactive. Nostrils clear. Oral cavity is moist. Ears reveal no drainage. Neck reveals no JVD, carotid bruits, or thyromegaly. CHEST EXAMINATION: Trachea is central. Symmetrical expansion. Lung tinoco clear to auscultation and percussion. CARDIAC: Normal S1, S2 with no gallops. No murmurs ABDOMEN: Soft. Tender on palpation. Surgical site is bandaged and bandages are dry and intact. Bowel sounds noted. No organomegaly. No abdominal bruits. Abdominal binder noted. Extremities: reveal no edema. No clubbing or cyanosis, right calf appears to have some warmth to touch along with swelling Neurologically awake, alert, oriented x3 with well-coordinated movements. No focal deficits noted Skin: No rash or skin lesions. Psychiatric: Cooperative. Non-suicidal Musculoskeletal: No joint swelling or deformity. Normal range of motion. - Labs CBC & Chem 7: 01/04/21 04:02 01/02/21 06:09 Labs: Abnormal Lab Results - Last 24 Hours (Table) 01/04/21 Range/Units 04:02 RBC 4.16 L (4.30-5.90) m/uL MCV 103.0 H (80.0-100.0) fL Microbiology - Last 24 Hours (Table) 01/01/21 09:00 Gram Stain - Final Abdomen Wound Culture - Final Enterococcus faecium VRE Assessment and Plan Assessment: Status post sigmoid colectomy due to recent diverticulitis with perforation and possible colovesicular fistula. Elevated blood pressure likely due to pain. Improved now Right lower extremity positive for deep vein thrombosis is noted on this Doppler Bilateral pulmonary embolism as noted on chest CTA Ongoing nicotine addiction on daily basis, continue with nicotine patch DVT prophylaxis: Subcutaneous heparin GI prophylaxis: Protonix Full code Plan: Patient will be continued on IV antibiotics in the form of Anidulafungin and daptomycin with cultures finalizing showing enterococcus VRE and zachary, not albicans. Infectious disease is following. Patient did receive a PICC line for outpatient IV antibiotic therapy and case management making arrangements for this. Patient had some right lower extremity pain and swelling and a venous Do ppler was done showing a DVT and continued to have some shortness of breath with exertion and cough and a chest CTA was done showing pulmonary embolisms as well and patient was initially started on IV heparin drip and has transitioned oral anticoagulant Eliquis. Again, stressed the importance of the incentive spirometer and sitting up out of the bed and increasing activity. Abdominal binder to be used while out of bed. Patient is passing gas and having multiple bowel movements. Smoking cessation has been counseled extensively. Thank you for this consult and we'll continue to follow along with you during hospitalization.
--- NOTE | 2021-01-04 23:31 | PN ---
PROGRESS NOTE DATE OF SERVICE: 01/04/2021 REASON FOR FOLLOWUP: Abdominal abscess and complicated diverticulitis. INTERVAL HISTORY: The patient is currently afebrile. The patient is breathing slightly comfortably. Did have evidence of right lower extremity DVT and a PE on CT angiogram. The patient denies having any nausea or vomiting. Abdominal pain is currently controlled. He is able to tolerate his diet. PHYSICAL EXAMINATION: Blood pressure 175/100 with a pulse of 92, temperature 97.5. He is 91% on room air. General description is a middle-aged male up in the chair in no distress. RESPIRATORY SYSTEM: Unlabored breathing. Clear to auscultation anteriorly. HEART: S1, S2. Regular rate and rhythm. ABDOMEN: Soft. No tenderness. LABS: Hemoglobin is 13.7, white count 8.3. DIAGNOSTIC IMPRESSION AND PLAN: Patient with complicated diverticulitis in this patient who is status post resection and anastomosis with abdominal abscess, culture positive for VRE, Lauren glabrata. Patient is covered with Zosyn, daptomycin and Eraxis; to continue. Once clinically stabilized, transition to outpatient antibiotic therapy. Continue supportive care. MMODL / IJN: [id number] /
[2021-01-05] MEDS: PANTOPRAZOLE 40 MG/10 ML VIAL IV SCH (07:54)
[2021-01-05] MEDS: HYDROcodone/APAP 7.5-325MG 1 EACH TAB PO PRN ×2 (07:54→15:19)
[2021-01-05 09:29] VITALS: RESP 14
[2021-01-05] MEDS: NICOTINE 14MG/24HR PATCH TRANSDERM SCH (09:39)
[2021-01-05] MEDS: APIXABAN 5 MG TAB PO SCH (09:39)
[2021-01-05] MEDS: NAPROXEN 250 MG TAB PO SCH (09:40)
[2021-01-05] MEDS: ANIDULAFUNGIN 100 MG in SODIUM CHLORIDE 0.9% 100 ML IVPB SCH (11:33)
--- NOTE | 2021-01-05 13:54 | P.PN ---
Subjective Progress Note Date: 01/05/21 Patients pain is well controlled.no complaints of SOB Objective - Vital Signs Vital signs: Vital Signs Temp 97.5 F L 01/05/21 09:27 Pulse 93 01/05/21 10:46 Resp 14 01/05/21 10:46 BP 158/88 01/05/21 09:27 Pulse Ox 90 L 01/05/21 09:27 Intake & Output 01/04/21 01/05/21 01/05/21 18:59 06:59 18:59 Intake Total 664.444 600 Balance 664.444 600 Intake: Intake, IV Titration 124.444 Amount Heparin Sod,Pork in 0.45% 124.444 NaCl 25,000 unit In 0.45 % NaCl 1 250ml.bag @ 18 UNITS/KG/HR 15.588 mls/hr IV .Q16H3M [facility] Rx#: [id number] Oral 540 600 Other: Voiding Method Toilet Toilet # Voids 2 1 - Constitutional General appearance: Present: cooperative - Respiratory Details: nonlabored - Gastrointestinal Gastrointestinal Comment(s): S/NT/ND, wound Clean and dry - Psychiatric Psychiatric: Present: A&O x's 3 - Labs CBC & Chem 7: 01/04/21 04:02 01/02/21 06:09 Assessment and Plan Assessment: S/P LAR PE and RLE DVT Plan: PE being treated with heparin drip being bridged to eliquis per medicine recs. Patient to continue treatment of DVT and PE per medicine team. And will be following up with primary as an outpatient for continued treatment. He is stable for DC at this time from surgical standpoint. Instructed clearly to follow up with Primary care physician and with ID. He will also follow up with Dr. Giron. He was clearly instructed to return to ER if he experianced chest pain, shortness of breath, fevers, light headed, rapid heart rate. He stated he understood and agreed.
[2021-01-05] MEDS: DAPTOmycin 500 MG in SODIUM CHLORIDE 0.9% 50 ML IVPB SCH (14:19)
[2021-01-05 14:22] VITALS: BP 153/94; PULSE 81; TEMP 98.1
[2021-01-05 15:08] LABS: Basophils # (A) 0.04 X 10*3/uL (0.00-0.10); Basophils % (A) 0.5 %; Eosinophils # (A) 0.41 X 10*3/uL (0.04-0.35); Eosinophils % (A) 5.4 %; HCT 40.2 % (39.6-50.0); HGB 12.7 g/dL (13.0-17.0); Lymphocytes # (A) 1.66 X 10*3/uL (0.90-5.00); MCH 32.3 pg (27.0-32.0); MCHC 31.6 g/dL (32.0-37.0); MCV 102.3 fL (80.0-97.0); Mean Platelet Volume 10.3 fL (9.5-12.2); Monocytes # (A) 0.68 X 10*3/uL (0.20-1.00); Neutrophils # (A) 4.72 X 10*3/uL (1.80-7.70); Neutrophils % (A) 62.7 %; Platelet Count 378 X 10*3/uL (140-440); RBC 3.93 X 10*6/uL (4.40-5.60); RDW 12.7 % (11.5-14.5); WBC 7.54 X 10*3/uL (4.50-10.00)
--- NOTE | 2021-01-05 15:30 | P.PN ---
Subjective Progress Note Date: 01/05/21 - Reason for Consult Consult date: 12/28/20 Medical management - Chief Complaint Status post sigmoid colectomy - History of Present Illness Patient is a 50-year-old male with a known history of diverticulitis with p erforation admitted to the hospital from 11/21/2020 2 11/27/2020, patient was on antibiotic course via PICC line, currently everyday smoker and history of colovesical fistula was admitted to the hospital for sigmoid colon resection. Patient had cystoscope with bilateral ureteral stent placement to help with uterine identification. No obvious fistula identified on cystoscopy. Patient tolerated the procedure very well. Currently status post sigmoid colon resection with incidental appendectomy for acute on chronic diverticulitis. Postoperatively blood pressure was elevated. Patient is on epidural for pain management. Patient does have abdominal pain she is fairly controlled at this time. No complaints of chest pain or shortness of breath. Patient has been afebrile. Patient does complain of cough and unable to bring out any sputum due to abdominal discomfort with coughing. Does have some nausea but no episodes of vomiting. No headache or dizziness or lightheadedness. Patient is on Donis catheter currently. Laboratory data showed WBC 12.1, hemoglobin 13.3 and platelets 269 BUN 8.0 and creatinine 0.8 Sodium 138 potassium 4.5 and calcium 8.7 12/29/2020 Patient is seen and evaluated in follow-up currently sitting up in the chair with no acute overnight issues. Patient is tolerating full liquids and denies any gas or bowel movements at this time. Patient is continued on indwelling Donis catheter with urine noted. Continues to be on an epidural pain pump in being controlled by anesthesia. Patient continues to have abdominal discomfort and tenderness especially with position changes and coughing. Incentive spirometer at the bedside and instructed the patient to continue using every hour while awake although patient states it makes him cough further and causes more abdominal discomfort. Patient is maintained on IV antibiotics in the form of Zosyn and will continue at this time. Infectious disease is following and currently awaiting cultures. 12/30/2020 Patient is currently sitting in a chair. Complains of increasing tumbling sounds overnigh and no bowel night at. Continue incentive spirometry. Encouraged with increased ambulation.. No nausea vomiting. No chest pain or shortness of breath. Patient is being continued on IV medications. Fluid culture showed Zachary species and Enterococcus patient. Antibiotics in the form of Zosyn. ID is on board. 12/31/2020 Patient is currently lying in the bed comfortably. No nausea or vomiting. Rambling noise in the abdominal is better today. Patient has not passed any flatus yet.. Epidural anesthesia is being removed today. Abdominal pain is better. No fever no chills. Laboratory data showed WBC 8.9, hemoglobin 12.1 and platelets 237 sodium 137 potassium 4.4 BUN 5 and creatinine 0.6 01/01/2021 Patient is seen this morning currently sitting up in the bed continues to have pain in the lower abdominal region. Patient recently had epidural pump for pain removed and states his pain is hard to control at this time. Patient is reportedly passing gas and has had multiple bowel movements. Patient recently had some casie from surgery removed and surgical site and dressing is dry and intact. Patient to continue with abdominal binder while out of bed. White blood count is 8.9 today and hemoglobin is stable at 12.1. Sodium is 134, potassium is 4.4, creatinine is 0.6. Patient is maintained on IV antibiotics in the form of daptomycin and Zosyn and infectious disease following closely. Cathy parisi finalized showing Zachary along with enterococcus faecium VRE. Instructed and encourage the patient to continue with incentive spirometer and increasing activity as tolerated. 01/02/2021 Patient is seen and evaluated continues to have abdominal pain stating that his pain is not controlled. Patient has Toradol along with narcotics ordered and will continue with an oral NSAID. Labs within normal limits. Current sodium is 139, potassium is 4.5, creatinine is 0.5. Patient instructed to increase activity as tolerated and sit up out of the bed in the chair more often. Patient continues to have a cough and attempting to expectorate some phlegm. Again, stressed the importance of the incentive spirometer and continuing to use it at least 10 times every hour while awake. Patient continues to be resistant stating it makes him cough more. Discussed the importance of this. We'll co bob to follow along with surgery. Infectious disease also following and patient may possibly need IV antibiotic therapy in the outpatient setting. 01/03/2021 Patient is still complaining of severe abdominal pain and requesting IV Dilaudid for pain. 01/04/2021 Patient is seen this morning and having extreme right calf pain and a venous Doppler was ordered and was positive for DVT and patient was placed on IV heparin. Patient continued to have some cough and shortness of breath and a chest CTA was done showing moderate bilateral pulmonary embolism filling the first and second and third branches bilaterally with no evidence for a saddle component or right ventricular strain with the possibility of pneumonia. Patient was started on anticoagulant eliquis coverage was verified by case richard castillo. Patient did receive a PICC line and is continued on IV antibiotic therapy per infectious disease recommendations. Patient states he is passing gas and having bowel movements and tolerating diet with no reports of nausea or vomiting noted. Patient continues to have him abdominal discomfort although states he is having back pain most likely related to the hospital bed and is currently sitting up in the chair. 01/05/2021 Patient is seen this morning feeling much better and was reportedly walking the halls with nursing staff last night and is currently up in the room walking around and gathering his belongings as he states he is being discharged today. Patient is maintained on Eliquis 10 mg twice daily and will continue for the next week and then continue 5 mg twice daily thereafter. Patient instructed to follow-up with primary care provider along with surgery in the outpatient setting as discussed and scheduled. 10 using incentive spirometer at least 10 times every hour while awake and continue to increase activity as tolerated. Patient instructed on diet modifications and will be following strict modifications and guidelines per surgical recommendations. Review of systems: Constitutional: No reports of fatigue, fever, or chills Cardiovascular: No reports of chest pain or palpitations Respiratory: No reports of shortness of breath, reports occasional cough with phlegm production GI: No reports of nausea, vomiting, or diarrhea, minimal abdominal discomfort : No reports of dysuria or retention Neurovascular: No reports of weakness or numbness All medications have been reviewed Objective - Vital Signs Vital signs: Vital Signs Temp 97.5 F L 01/05/21 04:14 Pulse 83 01/05/21 04:14 Resp 16 01/05/21 04:14 BP 142/86 01/05/21 04:14 Pulse Ox 92 L 01/05/21 04:14 Intake & Output 01/04/21 01/05/21 01/05/21 18:59 06:59 18:59 Intake Total 664.444 600 Balance 664.444 600 Intake: Intake, IV Titration 124.444 Amount Heparin Sod,Pork in 0.45% 124.444 NaCl 25,000 unit In 0.45 % NaCl 1 250ml.bag @ 18 UNITS/KG/HR 15.588 mls/hr IV .Q16H3M [facility] Rx#: [id number] Oral 540 600 Other: Voiding Method Toilet # Voids 2 1 - Exam Patient is currently walking around the room, no acute distress, awake alert and oriented.. HEENT: Normocephalic. Neck is supple. Pupils reactive. Nostrils clear. Oral cavity is moist. Ears reveal no drainage. Neck reveals no JVD, carotid bruits, or thyromegaly. CHEST EXAMINATION: Trachea is central. Symmetrical expansion. Lung tinoco clear to auscultation and percussion. CARDIAC: Normal S1, S2 with no gallops. No murmurs ABDOMEN: Soft. Mildly Tender on palpation. Surgical site is bandaged and bandages are dry and intact. Bowel sounds noted. No organomegaly. No abdominal bruits. Abdominal binder noted. Extremities: reveal no edema. No clubbing or cyanosis, right calf appears to have some warmth to touch along with swelling, improved Neurologically awake, alert, oriented x3 with well-coordinated movements. No focal deficits noted Skin: No rash or skin lesions. Psychiatric: Cooperative. Non-suicidal Musculoskeletal: No joint swelling or deformity. Normal range of motion. - Labs CBC & Chem 7: 01/05/21 07:35 01/02/21 06:09 Labs: Abnormal Lab Results - Last 24 Hours (Table) 01/04/21 Range/Units 10:22 APTT 33.6 H (22.0-30.0) sec Assessment and Plan Assessment: Status post sigmoid colectomy due to recent diverticulitis with perforation and possible colovesicular fistula. Elevated blood pressure likely due to pain. Improved now Right lower extremity positive for deep vein thrombosis is noted on this Doppler Bilateral pulmonary embolism as noted on chest CTA Ongoing nicotine addiction on daily basis, continue with nicotine patch DVT prophylaxis: Subcutaneous heparin GI prophylaxis: Protonix Full code Plan: Patient will be continued on IV antibiotics in the form of Anidulafungin and daptomycin with cultures finalizing showing enterococcus VRE and zachary, not albicans. Infectious disease is following. Patient did receive a PICC line for outpatient IV antibiotic therapy and case management making arrangements for this. Patient has transitioned oral anticoagulant Eliquis. Again, stressed the importance of the incentive spirometer and sitting up out of the bed and increasing activity. Also stressed the importance of continuing to avoid tobacco use. Smoking cessation has been counseled extensively. Patient states he is being discharged today. Thank you for this consult and we'll continue to follow along with you during hospitalization.
--- NOTE | 2021-01-05 17:00 | PN ---
PROGRESS NOTE DATE OF SERVICE: 01/05/2021 REASON FOR FOLLOWUP: Complicated diverticulitis with abdominal abscess. INTERVAL HISTORY: The patient is currently afebrile, has been feeling better, breathing comfortably. Denies having any chest pain or shortness of breath or cough. Abdominal pain is currently controlled. No nausea, no vomiting. PHYSICAL EXAMINATION: Blood pressure 153/94 with a pulse of 81, temperature 98.1. He is 96% on room air. General description is a middle-aged male up in the chair in no distress. RESPIRATORY SYSTEM: Unlabored breathing. Clear to auscultation anteriorly. HEART: S1, S2. Regular rate and rhythm. ABDOMEN: Soft. Slightly distended. No guarding or rigidity. LABS: Hemoglobin is 12.7, white count 7.54. DIAGNOSTIC IMPRESSION AND PLAN: Patient with complicated diverticulitis, status post resection and primary anastomosis. Abdominal culture positive for VRE, Lauren glabrata. Patient is currently covered with daptomycin, Eraxis and Invanz. Antibiotic will continue for 2 weeks with close outpatient followup. MMODL / IJN: [id number] /
== END 2021-01-05 15:57 | disposition home or self-care (01) | DRG 329 ==
LOC: 2ORMAIN 09:57 → 5NMEDONC 15:44
PROVIDERS: ADMIT Surgery; ATTEND Surgery
PROC: 0DTN0ZZ Resection of Sigmoid Colon, Open Approach (ICD-10-PCS; principal; 2020-12-27 11:30)
PROC: 0DTJ0ZZ Resection of Appendix, Open Approach (ICD-10-PCS; principal; 2020-12-27 11:30)
PROC: 0T9B80Z Drainage of Bladder with Drainage Device, Via Natural or Artificial Opening Endoscopic (ICD-10-PCS; 2020-12-27 11:30)
PROC: 02HV33Z Insertion of Infusion Device into Superior Vena Cava, Percutaneous Approach (ICD-10-PCS; 2021-01-03)
DX: K57.20 Diverticulitis of large intestine with perforation and abscess without bleeding (principal); I26.99 Other pulmonary embolism without acute cor pulmonale; K65.1 Peritoneal abscess; I82.401 Acute embolism and thrombosis of unspecified deep veins of right lower extremity; J98.11 Atelectasis; T81.41XA Infection following a procedure, superficial incisional surgical site, initial encounter; M54.9 Dorsalgia, unspecified; F17.200 Nicotine dependence, unspecified, uncomplicated; N48.89 Other specified disorders of penis; Z79.01 Long term (current) use of anticoagulants; Z79.899 Other long term (current) drug therapy; Z80.6 Family history of leukemia
CPT/HCPCS: 36410; 71275; 76937; 80048; 80053; 85025; 85610; 85730; 86850; 86900; 86901; 87070; 87075; 87077; 87186; 87205; 88302; 88307; 94760

== ENCOUNTER 2021-01-25 12:54 | Emergency (ER) | payer OTHER ==
[2021-01-25 13:17] VITALS: TEMP 97.9
[2021-01-25] MEDS ORDERED: SODIUM CHLORIDE 0.9% 500 ML 500 ML IV STA (13:40)
[2021-01-25] MEDS ORDERED: HYDROmorphone 0.5 MG/0.5 ML SYRINGE IVP STA (13:41)
--- NOTE | 2021-01-25 13:48 | ED ---
General Adult HPI - General Chief complaint: Abdominal Pain Stated complaint: infection, post surgery Time Seen by Provider: 01/25/21 13:10 Source: patient, RN notes reviewed, old records reviewed Limitations: no limitations - History of Present Illness Initial comments: This is a 50-year-old male who presents emergency department stating that he had surgery on his abdomen for a bowel resection a couple weeks ago. Patient had continued abdominal pain and he is on a PICC line still because he had VRE and is appendix. Patient states the pain is getting worse so he had a CT of his abdomen pelvis and it showed a leak possibly at the anastomosis. Patient had a computed tomography scan at another facility. Patient's surgeon was Dr. Tyler. Patient denies any fever chills per patient denies any chest pain difficulty breathing first breath. - Related Data Home Medications Medication Instructions Recorded Confirmed Apixaban [Eliquis] 5 mg PO BID 01/25/21 01/25/21 Ertapenem [INVanz] 1 gm IV DAILY 01/25/21 01/25/21 Previous Rx's Medication Instructions Recorded DAPTOmycin [Cubicin] 500 mg IV DAILY #14 bag 01/04/21 Pantoprazole Sodium [Protonix] 40 mg PO DAILY 30 Days #30 01/04/21 tablet. Docusate [Colace] 100 mg PO DAILY #30 capsule 01/05/21 HYDROcodone/APAP 5-325MG [[place] 1 tab PO Q4HR PRN 3 Days #30 tab 01/05/21 5-325] Allergies Allergy/AdvReac Type Severity Reaction Status Date / Time pet dander Allergy allergy Uncoded 12/27/20 10:34 symptoms Review of Systems ROS Statement: Those systems with pertinent positive or pertinent negative responses have been documented in the HPI. ROS Other: All systems not noted in ROS Statement are negative. Past Medical History Past Medical History: No Reported History Additional Past Medical History / Comment(s): diverticulitis with perforation inpt 11/21/20-11/27/20. PICC line lt arm with antibiotic History of Any Multi-Drug Resistant Organisms: VRE Date of last positivie culture/infection: 01/01/21 MDRO Source:: Appendix Past Surgical History: Appendectomy Additional Past Surgical History / Comment(s): tubes in ears, colon resecion. Past Anesthesia/Blood Transfusion Reactions: No Reported Reaction Past Psychological History: No Psychological Hx Reported Smoking Status: Current every day smoker Past Alcohol Use History: Daily, Occasional - Past Family History Brother(s) Family Medical History: Cancer Additional Family Medical History / Comment(s): leukemia General Exam - General Exam Comments Initial Comments: GENERAL: Patient is well-developed and well-nourished. Patient is nontoxic and well- hydrated and is in mild distress. ENT: Neck is soft and supple. No significant lymphadenopathy is noted. Oropharynx is clear. Moist mucous membranes. Neck has full range of motion without eliciting any pain. EYES: The sclera were anicteric and conjunctiva were pink and moist. Extraocular movements were intact and pupils were equal round and reactive to light. E yelids were unremarkable. PULMONARY: Unlabored respirations. Good breath sounds bilaterally. No audible rales rhonchi or wheezing was noted. CARDIOVASCULAR: There is a regular rate and rhythm without any murmurs gallops or rubs. ABDOMEN: Abdomen is tender in the lower quadrants. SKIN: Skin is clear with no lesions or rashes and otherwise unremarkable. NEUROLOGIC: Patient is alert and oriented x3. Cranial nerves II through XII are grossly intact. Motor and sensory are also intact. Normal speech, volume and content. Symmetrical smile. MUSCULOSKELETAL: Normal extremities with adequate strength and full range of motion. No lower extremity swelling or edema. No calf tenderness. LYMPHATICS: No significant lymphadenopathy is noted PSYCHIATRIC: Normal psychiatric evaluation. Limitations: no limitations Course Vital Signs 01/25/21 01/25/21 13:12 15:48 Temperature 97.9 F Pulse Rate 94 91 Respiratory 17 20 Rate Blood Pressure 163/105 164/89 O2 Sat by Pulse 94 L 96 Oximetry Medical Decision Making - Medical Decision Making Dr. Giron reviewed the CAT scan and x-rays as well as the lab work and determined the patient could be discharged home. I informed the patient that he would be going home and continue his IV antibiotics. Patient was fine with this and he understood if symptoms worsen she was to come back to the emergency department. - Lab Data Result diagrams: 01/25/21 13:40 01/25/21 13:40 Lab Results 01/25/21 01/25/21 01/25/21 Range/Units 13:40 13:40 13:40 WBC 9.4 (3.8-10.6) k/uL RBC 4.54 (4.30-5.90) m/uL Hgb 14.3 (13.0-17.5) gm/dL Hct 43.6 (39.0-53.0) % MCV 96.1 D (80.0-100.0) fL MCH 31.5 (25.0-35.0) pg MCHC 32.8 (31.0-37.0) g/dL RDW 12.5 (11.5-15.5) % Plt Count 452 H (150-450) k/uL MPV 7.9 Neutrophils % 57 % Lymphocytes % 29 % Monocytes % 6 % Eosinophils % 6 % Basophils % 1 % Neutrophils # 5.4 (1.3-7.7) k/uL Lymphocytes # 2.7 (1.0-4.8) k/uL Monocytes # 0.6 (0-1.0) k/uL Eosinophils # 0.6 (0-0.7) k/uL Basophils # 0.1 (0-0.2) k/uL Sodium 138 (137-145) mmol/L Potassium 4.4 (3.5-5.1) mmol/L Chloride 101 (98-107) mmol/L Carbon Dioxide 28 (22-30) mmol/L Anion Gap 9 mmol/L BUN 6 L (9-20) mg/dL Creatinine 0.59 L (0.66-1.25) mg/dL Est GFR (CKD-EPI)AfAm >90 (>60 ml/min/1.73 sqM) Est GFR (CKD-EPI)NonAf >90 (>60 ml/min/1.73 sqM) Glucose 115 H (74-99) mg/dL Plasma Lactic Acid Jordan (0.7-2.0) mmol/L Calcium 9.7 (8.4-10.2) mg/dL Total Bilirubin 0.5 (0.2-1.3) mg/dL AST 28 (17-59) U/L ALT 21 (4-49) U/L Alkaline Phosphatase 101 (38-126) U/L Total Protein 7.4 (6.3-8.2) g/dL Albumin 3.8 (3.5-5.0) g/dL Amylase 42 (30-110) U/L Lipase 61 (23-300) U/L Urine Color Yellow Urine Appearance Cloudy (Clear) Urine pH 6.0 (5.0-8.0) Ur Specific [place] 1.028 (1.001-1.035) Urine Protein 1+ H (Negative) Urine Glucose (UA) Negative (Negative) Urine Ketones Negative (Negative) Urine Blood Small H (Negative) Urine Nitrite Negative (Negative) Urine Bilirubin Negative (Negative) Urine Urobilinogen 2.0 (<2.0) mg/dL Ur Leukocyte Esterase Negative (Negative) Urine RBC 15 H (0-5) /hpf Urine WBC 1 (0-5) /hpf Urine Mucus Many H (None) /hpf 01/25/21 Range/Units 13:40 WBC (3.8-10.6) k/uL RBC (4.30-5.90) m/uL Hgb (13.0-17.5) gm/dL Hct (39.0-53.0) % MCV (80.0-100.0) fL MCH (25.0-35.0) pg MCHC (31.0-37.0) g/dL RDW (11.5-15.5) % Plt Count (150-450) k/uL MPV Neutrophils % % Lymphocytes % % Monocytes % % Eosinophils % % Basophils % % Neutrophils # (1.3-7.7) k/uL Lymphocytes # (1.0-4.8) k/uL Monocytes # (0-1.0) k/uL Eosinophils # (0-0.7) k/uL Basophils # (0-0.2) k/uL Sodium (137-145) mmol/L Potassium (3.5-5.1) mmol/L Chloride (98-107) mmol/L Carbon Dioxide (22-30) mmol/L Anion Gap mmol/L BUN (9-20) mg/dL Creatinine (0.66-1.25) mg/dL Est GFR (CKD-EPI)AfAm (>60 ml/min/1.73 sqM) Est GFR (CKD-EPI)NonAf (>60 ml/min/1.73 sqM) Glucose (74-99) mg/dL Plasma Lactic Acid [place] 1.4 (0.7-2.0) mmol/L Calcium (8.4-10.2) mg/dL Total Bilirubin (0.2-1.3) mg/dL AST (17-59) U/L ALT (4-49) U/L Alkaline Phosphatase (38-126) U/L Total Protein (6.3-8.2) g/dL Albumin (3.5-5.0) g/dL Amylase (30-110) U/L Lipase (23-300) U/L Urine Color Urine Appearance (Clear) Urine pH (5.0-8.0) Ur Specific [place] (1.001-1.035) Urine Protein (Negative) Urine Glucose (UA) (Negative) Urine Ketones (Negative) Urine Blood (Negative) Urine Nitrite (Negative) Urine Bilirubin (Negative) Urine Urobilinogen (<2.0) mg/dL Ur Leukocyte Esterase (Negative) Urine RBC (0-5) /hpf Urine WBC (0-5) /hpf Urine Mucus (None) /hpf Disposition Clinical Impression: Postoperative abdominal pain Disposition: HOME SELF-CARE Instructions (If sedation given, give patient instructions): Abdominal Pain (ED) Is patient prescribed a controlled substance at d/c from ED?: No Referrals: Thania Arroyo MD [Primary Care Provider] - 1-2 days Time of Disposition: 15:32
[2021-01-25 14:18] LABS: ALT 21 U/L (4-49); AST 28 U/L (17-59); African American GFR (CKD) >90 (>60 ml/min/1.73 sqM); Albumin 3.8 g/dL (3.5-5.0); Alkaline Phosphatase 101 U/L (38-126); Amylase 42 U/L (30-110); Anion Gap 9 mmol/L; Blood Urea Nitrogen 6 mg/dL (9-20); Calcium 9.7 mg/dL (8.4-10.2); Carbon Dioxide 28 mmol/L (22-30); Chloride 101 mmol/L (98-107); Glucose 115 mg/dL (74-99); Lipase 61 U/L (23-300); Non-African American GFR(CKD) >90 (>60 ml/min/1.73 sqM); Potassium 4.4 mmol/L (3.5-5.1); Sodium 138 mmol/L (137-145); Total Bilirubin 0.5 mg/dL (0.2-1.3); Total Protein 7.4 g/dL (6.3-8.2)
[2021-01-25 14:26] LABS: Appearance,Urine Cloudy (Clear); Bilirubin,Urine Negative (Negative); Blood,Urine Small (Negative); Color,Urine Yellow; Glucose,Urine (UA) Negative (Negative); Ketones,Urine Negative (Negative); Leukocyte Esterase,Urine Negative (Negative); Mucus,Urine Many /hpf; Nitrite,Urine Negative (Negative); Protein,Urine 1+ (Negative); RBC,Urine 15 /hpf (0-5); Specific Gravity,Urine 1.028 (1.001-1.035); WBC,Urine 1 /hpf (0-5)
[2021-01-25 14:27] LABS: Basophils # (A) 0.1 k/uL (0-0.2); Basophils % (A) 1 %; Eosinophils # (A) 0.6 k/uL (0-0.7); Eosinophils % (A) 6 %; HCT 43.6 % (39.0-53.0); HGB 14.3 gm/dL (13.0-17.5); Lymphocytes # (A) 2.7 k/uL (1.0-4.8); Lymphocytes % (A) 29 %; MCH 31.5 pg (25.0-35.0); MCHC 32.8 g/dL (31.0-37.0); Mean Platelet Volume 7.9; Monocytes # (A) 0.6 k/uL (0-1.0); Monocytes % (A) 6 %; Neutrophils # (A) 5.4 k/uL (1.3-7.7); Neutrophils % (A) 57 %; Platelet Count 452 k/uL (150-450); RBC 4.54 m/uL (4.30-5.90); RDW 12.5 % (11.5-15.5); WBC 9.4 k/uL (3.8-10.6)
[2021-01-25 14:35] LABS: MCV 96.1 fL (80.0-100.0)
--- NOTE | 2021-01-25 15:34 | XR ---
EXAMINATION TYPE: XR abdomen complete w decub DATE OF EXAM: 01/25/2021 COMPARISON: NONE HISTORY: 50-year-old male with abdominal pain. Rule out free air, status post hernia repair and bowel resection in December. TECHNIQUE: Supine, upright, and left side down lateral decubitus views of the abdomen are obtained. FINDINGS: Left basilar airspace disease. No evidence for free intraperitoneal air. Retained oral contrast material seen throughout the colon. No dilated small bowel or differential air -fluid levels. Multiple pelvic phleboliths. IMPRESSION: 1. No evidence for free air or bowel obstruction. Retained oral contrast material seen throughout the colon. 2. Left basilar airspace disease. Correlate for pneumonia.
[2021-01-25 15:50] VITALS: BP 164/89; PULSE 91; RESP 20
== END 2021-01-25 15:50 | disposition home or self-care (01) ==
LOC: EC 12:54
DX: G89.18 Other acute postprocedural pain (principal); R10.9 Unspecified abdominal pain; F17.200 Nicotine dependence, unspecified, uncomplicated; Z79.01 Long term (current) use of anticoagulants
CPT/HCPCS: 36415; 80053; 82150; 83605; 83690; 85025; 81001; 87040; 74021; 99284; 96374; J1170